=== PATIENT | female | born 1960 | race Caucasian/White ===

== ENCOUNTER → 2016-05-18 | Outpatient (CLI) | payer MEDICARE, OTHER ==
[~2016-05-18] MED LIST: ALB0.5V INH; ALBU0.8322 IH; ALBU17AE3 IH; ALBU2.5V4 IH; ALBU8.5H2 IH; AMOX-355 PO; ASPI-875 PO; AZIT-21 PO; BENZ100C18 PO; BUDE10.2 IH; BUDE10.22 IH; BUDE6HFA IH; CARV3.12T PO; DCS100C PO; DOXY100C42 PO; DOXY100T2 PO; ENAL2.5T PO; ENLP2.5T PO; FLUT16SP22 NS; FURO20TA4 PO; FURO40TA4 PO; Fluticasone Propionate NS; GFN600TCR PO; GUAI-555 PO; HYDR-3714 PO; HYDR-3720 PO; HYDR-756 PO; HYDR-757 PO; IPRA3AMP11 INH; Ibuprofen PO; KCL10CCR PO; LISI1TAB PO; LISI1TAB6 PO; LORA1TAB PO; LRT10T PO; Levofloxacin PO; METO25TA PO; MNTL10T PO; MONT10TA24 PO; MTP25TSR PO; NCT21TD TD; PNT40TEC PO; POTA10CA43 PO; POTA20TA15 PO; PRD10T PO; PRD1T PO; PRD20T PO; PRD50T PO; PRED10TA PO; RT-ALBUINH IH; SERT100T8 PO; SERT50TA PO; SLMFT1E INH; SRTR100T PO; TIOT18CA IH; TIOT18CA2 INH; TRAM50TA2 PO
--- OUTSIDE RECORDS SUMMARY | 2016-05-18 15:43 | XMS REPORT | Continuity of Care Document ---
Author Author [facility] Organization [facility] Address Unknown Phone Unavailable Care Team Providers Care Substation Maintenance Technician Name Role Phone LUDIN GALINDO MD PCP Insurance Providers Payer Name Policy Number Subscriber Name Relationship Eloisa Kanc[employer] [id number] Ellen Jacobs 18 Self / Same As Patient Advance Directives Directive Response Recorded Date/Time Advance Directives No 12/13/13 5:59am Health Care Power of Used Car Lot Attendant Y PAST MEDICAL RECORD 12/13/13 5:59am Organ Donor No 12/13/13 5:59am Resuscitation Status Full Code 12/13/13 5:59am Chief Complaint and Reason for Visit Chief Complaint ACUTE RESPIRATORY FAILURE/COPD FLARE Reason for Visit Acute respiratory failure with hypercapnia COPD with exacerbation Acute respiratory failure with hypercapnia Problems Medical Problems Problem Onset Date Status Severe chronic obstructive pulmonary disease 09/26/2013 Active COPD with exacerbation Unknown Active COPD with exacerbation Unknown Active Acute respiratory failure with hypercapnia Unknown Active COPD with exacerbation Unknown Active Acute respiratory failure with hypercapnia Unknown Active Medications Medication Dose Route Sig Days/Qty Instructions Order Date Discontinued Date Status Albuterol 2.5 Mg INH EVERY 4HRS PRN 03/09/12 09/27/12 Discontinued Prednisone 50 Mg PO DAILY 03/09/12 03/12/12 Discontinued Sertraline HCl 50 Mg PO DAILY 03/09/12 03/12/13 Discontinued Tiotropium [place] 0 IH DAILY 1 INHALATION 03/09/12 09/22/12 Discontinued Salmeterol Xinafoate/Fluticasone 0 INH GIVE EVERY 12 HRS ON SCHEDULE 03/09/12 03/12/12 Discontinued HCTZ/Lisinopril (Zestoretic) 10 - 12.5 Mg PO DAILY 03/09/12 Discontinued Tiotropium [place] 0 IH DAILY 1 INHALATION 03/12/12 09/22/12 Discontinued Amoxicillin/Clavulanate Potassium 1 Each PO TWICE A DAY 6 Days 09/22/12 Discontinued Prednisone PO TAKE 60 MG TWICE DAILY X2 DAYS 03/12/12 09/22/12 Discontinued Albuterol 8.5 Gm IH EVERY 4HRS 09/22/12 09/27/12 Discontinued Albuterol Sulfate 0.83 Mg IH EVERY 4HRS PRN NEEDED FOR SHORTNESS OF BREATH 09/22/12 03/12/13 Discontinued Guaifenesin 600 Mg PO TWICE A DAY 09/22/12 03/12/13 Discontinued Loratadine 10 Mg PO DAILY PRN 09/22/12 09/25/13 Discontinued Prednisone 1 Mg PO THREE TIMES A DAY 09/27/12 09/27/12 Discontinued Prednisone 40 Mg PO DAILY TAKES 2 (20MG) TABLETS DAILY FOR FIVE DAYS 03/19/13 Discontinued Lorazepam 0.5-1 Mg PO DAILY PRN 09/27/12 09/13/13 Discontinued Prednisone 40 Mg PO DAILY 5 Days 03/08/13 03/12/13 Discontinued Guaifenesin/P-Ephed Hcl 1 Tab PO TWICE A DAY PRN NEEDED FOR CONGESTION 03/12/13 03/19/13 Discontinued Budesonide/Formoterol Fumarate 2 Puff IH TWICE A DAY 03/12/13 Discontinued Albuterol 2 Puff IH TWICE A DAY PRN SHORTNESS OF BREATH 03/12/13 Active Aspirin 81 Mg PO DAILY 03/12/13 Active HCTZ/Lisinopril (Zestoretic) 1 Tab PO DAILY 20-12.5MG TABLET 03/12/13 09/13/13 Discontinued Albuterol Sulfate 2.5 Mg IH EVERY 4HRS PRN 03/12/13 03/19/13 Discontinued Budesonide/Formoterol Fumarate 2 Puff IH TWICE A DAY 03/12/13 Active Sertraline HCl 150 Mg PO DAILY TAKES 1 & 1/2 (100MG) TABLETS DAILY 11/28/13 Discontinued Benzonatate 200 Mg PO THREE TIMES A DAY PRN COUGH 30 Days 03/19/13 Discontinued Albuterol/Ipratropium 3 Ml INH RESPIRATORY EVERY FOUR HOURS 30 Days 10/2409/08/13 Discontinued Fluticasone Propionate 0 Gm NS TWICE A DAY 30 Days 03/19/13 09/07/13 Discontinued Guaifenesin 600 Mg PO TWICE A DAY 30 Days 03/19/13 09/08/13 Discontinued Pantoprazole Sodium 40 Mg PO DAILY@0700 30 Days 03/19/13 09/07/13 Discontinued Prednisone 60 Mg PO DAILY@0700 42 Qty Take 5 tabs (50mg) on 03-21-13, 02-2303/19/13 09/07/13 Discontinued Montelukast Sodium 10 Mg PO DAILY 30 Days 03/19/13 09/07/13 Discontinued Nicotine 21 Mg TD DAILY@0900 30 Days 03/19/13 09/07/13 Discontinued Lorazepam 0.5-1 Mg PO ONCE DAILY PRN ANXIETY 1 Qty 09/13/13 09/25/13 Discontinued Enalapril Maleate 2.5 Mg PO TWICE A DAY 60 Qty 09/13/13 09/25/13 Discontinued Furosemide (Lasix) 20 Mg PO DAILY 30 Qty 09/13/13 09/16/13 Discontinued Potassium Chloride (Micro K) 10 Meq PO DAILY WITH FOOD 1 Qty 09/13/13 09/16/13 Discontinued Carvedilol 3.125 Mg PO TWICE A DAY 60 Qty 09/13/13 09/25/13 Discontinued Potassium Chloride (Micro K) 20 Meq PO DAILY WITH FOOD 1 Qty 09/16/13 09/25/13 Discontinued Furosemide (Lasix) 1 Each PO DAILY 30 Qty 09/16/13 09/25/13 Discontinued Lorazepam 0.5 Mg PO TWICE A DAY PRN ANXIETY TAKES 1/2 (1MG) TABLET NEEDED FOR ANXIETY 09/25/13 Active Enalapril Maleate 2.5 Mg PO TWICE A DAY 09/25/13 Active Carvedilol 3.125 Mg PO TWICE A DAY 09/25/13 09/25/13 Discontinued Potassium Chloride 20 Meq PO DAILY 09/25/13 11/27/13 Discontinued Furosemide (Lasix) 40 Mg PO DAILY TAKES 2 (20MG) TABLETS DAILY 11/27/13 Discontinued Albuterol Sulfate 2.5 Mg IH EVERY 4HRS PRN SHORTNESS OF BREATH Active Metoprolol Succinate 12.5 Mg PO DAILY 30 Days 09/26/13 11/28/13 Discontinued Montelukast Sodium 10 Mg PO BEDTIME 30 Days 09/26/13 11/28/13 Discontinued [Fluticasone Propionate] 0 [place] NS TWICE A DAY 30 Days 09/26/1311/27 Discontinued Loratadine 10 Mg PO DAILY 30 Days 09/26/13 11/28/13 Discontinued Prednisone 0 PO DIRECTED 80 Qty 60mg daily for 2 days 09/26/13 Discontinued Azithromycin (Zpak) 1 Tab PO DAILY 4 Qty 11/12/13 11/27/13 Discontinued Prednisone 20 Mg PO DIRECTED 14 Qty 11/27/13 11/28/13 Discontinued Potassium Chloride 10 Meq PO DAILY 0 Qty 11/27/13 11/28/13 Discontinued Furosemide (Lasix) 20 Mg PO DAILY 0 Qty 11/27/13 11/28/13 Discontinued Tiotropium [place] 1 Cap IH 1400 11/27/13 Active Metoprolol Succinate 12.5 Mg PO 2100 11/28/13 Active Montelukast Sodium 10 Mg PO DAILY 11/28/13 Active Loratadine 10 Mg PO DAILY 11/28/13 Active Furosemide (Lasix) 20 Mg PO DAILY 11/28/13 Active Potassium Chloride 10 Meq PO DAILY TAKE 1/2 (20MEQ) TABLET 11/28/13 Active Sertraline Hcl 150 Mg PO DAILY 11/28/13 Active Prednisone 10 Mg PO DAILY 42 Qty 60mg daily for 2 days 11/29/13 Discontinued Prednisone 0 PO DIRECTED 10 Qty 12/15/13 Active Social History Social History Problem Response Recorded Date/Time Alcohol Use Denies Use 12/13/2013 5:34am Recreational Drug Use No 12/13/2013 5:34am Recent Foreign Travel No 12/13/2013 5:34am Recent Infectious Disease Exposure No 12/13/2013 5:34am Hospitalization with Isolation Denies 12/15/2013 2:06pm Smoking Status Former Smoker 12/13/2013 7:00am Do you dip or chew tobacco? No 12/13/2013 7:00am Query Response Start Date Stop Date Smoking Status Former Smoker 12/23/2012 Hospital Discharge Instructions Patient Instructions Physician Instructions New, Converted, or Re-newed RX: Call to Patient Pharmacy Goal/Follow Up Appt: Appt with Dr Galindo in 1 wk Dicharge Diet: ADA Diet Activity as Tolerated: Yes Plan of Care Discharge Date 12/15/13 11:30am Disposition 30 STILL A PATIENT Instructions/Education Provided Chronic Obstructive Pulmonary Disease (DC) Forms Provided Follow-Up Appts. PDI Medical Prescriptions See Medications Section Referrals (Pulmonary Diseases) Functional Status Query Response Date Recorded Patient Orientation Person Place Time Situation Eyes Open December 15, 2013 2:06pm Comprehension Ability Understands Concepts December 14, 2013 9:00pm Allergies, Adverse Reactions, Alerts Allergen Type Severity Reaction Status Last Updated No Known Drug Allergies Active 03/09/12 Immunizations Name Given Type Date of Pneumonia Vaccine 12/13/11 Historical Date of Influenza Vaccine 02/16/12 Historical Tetanus Booster (TDap) Less than 5yrs Historical Vital Signs Acute Vital Signs Vital Response Date/Time Temperature (Fahrenheit) 96.0 degrees F (97.6 - 99.5) Temperature (Calculated Celsius) 35.51362 degrees C (36.4 - 37.5) Temperature Source Tympanic Pulse Rate (adult) 76 bpm (60 - 90) Respiratory Rate 20 bpm (12 - 24) O2 Sat by Pulse Oximetry 98 % (88 - 100) Blood Pressure 131/79 mm Hg Pain Pain Intensity 0 Height (Feet) 5 feet Height (Inches) 5.00 inches Height (Calculated Centimeters) 165.900627 cm Weight (Pounds) 157 pounds Weight (Ounces) 3.0 oz Weight (Calculated Grams) 57447.003 gm Weight (Calculated Kilograms) 71.365369 kilograms Calculated BMI 25.79 Results Test Source Date Result Interp. Ref. Range Comments Activated Partial Thromboplast Time September 24, 2013 5:00pm 31 SEC N 24-35 Alanine Aminotransferase (ALT/SGPT) December 13, 2013 4:15am 35 U/L N 0- 55 Albumin December 13, 2013 4:15am 4.5 G/DL N 3.2-4.5 Alkaline Phosphatase December 13, 2013 4:15am 56 U/L N 40-136 Yoni Test December 13, 2013 5:04am YES-POS - Has specimen been collected/obtained? YPuncture site: L rad Yoni's Test: POSITIVE Temperature: 97.2 Liters of O2: 60% Comments: bipap Amylase Level September 07, 2013 4:44am 78 U/L N 25-115 Arterial Blood Base Excess December 13, 2013 5:04am -2.6 MMOL/L L -2.5- 2.5 Has specimen been collected/obtained? YPuncture site: Allie rad Yoni's Test: POSITIVE Temperature: 97.2 Liters of O2: 60% Comments: bipap Arterial Blood HCO3 December 13, 2013 5:04am 25 MMOL/L N 23-27 Has specimen been collected/obtained? YPuncture site: L rad Yoni's Test: POSITIVE Temperature: 97.2 Liters of O2: 60% Comments: bipap Arterial Blood Oxygen Saturation December 13, 2013 5:04am 99 % N 94-100 Has specimen been collected/obtained? YPuncture site: L fritz Yoni's Test: POSITIVE Temperature: 97.2 Liters of O2: 60% Comments: bipap Arterial Blood Partial Pressure CO2 December 13, 2013 5:04am 53 MMHG H 35- 45 Has specimen been collected/obtained? YPuncture site: L rad Yoni's Test: POSITIVE Temperature: 97.2 Liters of O2: 60% Comments: bipap Arterial Blood Partial Pressure O2 December 13, 2013 5:04am 154 MMHG H 79- 93 Has specimen been collected/obtained? YPuncture site: L rad Yoni's Test: POSITIVE Temperature: 97.2 Liters of O2: 60% Comments: bipap Arterial Blood Total CO2 December 13, 2013 5:04am 26.9 MMOL/L N 21.0-31.0 Has specimen been collected/obtained? YPuncture site: Allie hu Yoni's Test: POSITIVE Temperature: 97.2 Liters of O2: 60% Comments: bipap Arterial Blood pH December 13, 2013 5:04am 7.29 L 7.37-7.43 Has specimen been collected/obtained? YPuncture site: L rad Yoni's Test: POSITIVE Temperature: 97.2 Liters of O2: 60% Comments: bipap Aspartate Amino Transf (AST/SGOT) December 13, 2013 4:15am 31 U/L N 5-34 Atypical Lymphocytes December 13, 2013 4:15am 10 % - BUN/Creatinine Ratio December 13, 2013 4:15am 18 - Band Neutrophils December 13, 2013 4:15am 2 % - Basophils # (Auto) December 13, 2013 4:15am 0.3 10^3/uL H 0.0-0.1 Basophils % (Manual) September 22, 2012 8:30pm 0 % - Has specimen been collected/obtained? Y Basophils (%) (Auto) December 13, 2013 4:15am 1 % N 0-10 Blood Gas Inspired Oxygen December 13, 2013 5:04am 60% - Has specimen been collected/obtained? YPuncture site: L rad Yoni's Test: POSITIVE Temperature: 97.2 Liters of O2: 60% Comments: bipap Blood Gas Patient Temperature December 13, 2013 5:04am 97.2 - Has specimen been collected/obtained? YPuncture site: L rad Yoni's Test: POSITIVE Temperature: 97.2 Liters of O2: 60% Comments: bipap Blood Gas Puncture Site December 13, 2013 5:04am LT RAD - Has specimen been collected/obtained? YPuncture site: L rad Yoni's Test: POSITIVE Temperature: 97.2 Liters of O2: 60% Comments: bipap Blood Gas Ventilator Setting December 13, 2013 5:04am NO - Has specimen been collected/obtained? YPuncture site: L rad Yoni's Test: POSITIVE Temperature: 97.2 Liters of O2: 60% Comments: bipap Blood Urea Nitrogen December 13, 2013 4:15am 22 MG/DL H 7-18 C-Reactive Protein March 12, 2013 1:50am < 0.2 MG/DL L 0.2-0.9 Calcium Level December 13, 2013 4:15am 10.4 MG/DL H 8.5-10.1 Carbon Dioxide Level December 13, 2013 4:15am 19 MMOL/L L 21-32 Chloride Level December 13, 2013 4:15am 104 MMOL/L N 98-107 Cholesterol Level September 15, 2013 4:32am 181 MG/DL N -200 Has specimen been collected/obtained? Y Creatine Kinase MB December 13, 2013 4:15am 1.7 NG/ML - Creatinine December 13, 2013 4:15am 1.24 MG/DL N 0.60-1.30 D-Dimer September 14, 2013 10:02pm 0.57 UG/ML H 0.00-0.49 Eosinophils # (Auto) December 13, 2013 4:15am 1.5 10^3/uL H 0.0-0.3 Eosinophils % (Manual) December 13, 2013 4:15am 5 % - Eosinophils (%) (Auto) December 13, 2013 4:15am 6 % N 0-10 Glucose Level December 13, 2013 4:15am 200 MG/DL H 70-105 HDL Cholesterol September 15, 2013 4:32am 38 MG/DL N 35-60 Has specimen been collected/obtained? Y Hematocrit December 13, 2013 4:15am 50 % N 35-52 Hemoglobin December 13, 2013 4:15am 16.8 G/DL H 11.5-16.0 LDL Cholesterol September 15, 2013 4:32am 107 MG/DL N 0-129 Has specimen been collected/obtained? Y Lipase September 07, 2013 4:44am 359 U/L N 73-393 Lymphocytes # (Auto) December 13, 2013 4:15am 11.7 X 10^3 H 1.0-4.0 Lymphocytes % (Manual) December 13, 2013 4:15am 47 % - Lymphocytes (%) (Auto) December 13, 2013 4:15am 48 % H 12-44 Magnesium Level September 24, 2013 5:00pm 2.0 MG/DL N 1.8-2.4 Mean Corpuscular Hemoglobin December 13, 2013 4:15am 32 PG N 25-34 Mean Corpuscular Hemoglobin Concent December 13, 2013 4:15am 34 G/DL N 32- 36 Mean Corpuscular Volume December 13, 2013 4:15am 94 FL N 80-99 Mean Platelet Volume December 13, 2013 4:15am 9.6 FL N 7.4-10.4 Monocytes # (Auto) December 13, 2013 4:15am 3.4 X 10^3 H 0.0-1.0 Monocytes % (Manual) December 13, 2013 4:15am 9 % - Monocytes (%) (Auto) December 13, 2013 4:15am 14 % H 0-12 Myoglobin September 14, 2013 10:02pm 41 UG/L N 10-92 Has specimen been collected/obtained? Y Neutrophils # (Auto) December 13, 2013 4:15am 7.7 X 10^3 N 1.8-7.8 Neutrophils % (Manual) December 13, 2013 4:15am 27 % - Neutrophils (%) (Auto) December 13, 2013 4:15am 32 % L 42-75 Phosphorus Level March 14, 2013 5:53am 3.3 MG/DL N 2.5-4.9 Platelet Count December 13, 2013 4:15am 234 10^3/uL N 130-400 Potassium Level December 13, 2013 4:15am 4.9 MMOL/L N 3.6-5.0 Prothrombin Time September 24, 2013 5:00pm 12.4 SEC N 12.2-14.7 Red Blood Count December 13, 2013 4:15am 5.29 10^6/uL N 4.35-5.85 Red Cell Distribution Width December 13, 2013 4:15am 15.6 % H 10.0-14.5 Sodium Level December 13, 2013 4:15am 143 MMOL/L N 135-145 Total Bilirubin December 13, 2013 4:15am 0.5 MG/DL N 0.1-1.0 Total Creatine Kinase December 13, 2013 4:15am 46 U/L N 29-168 Total Protein December 13, 2013 4:15am 7.5 G/DL N 6.4-8.2 Triglycerides Level September 15, 2013 4:32am 180 MG/DL H 30.0-150.0 Has specimen been collected/obtained? Y Troponin I December 13, 2013 4:15am < 0.30 NG/ML - Urine Amorphous Sediment September 07, 2013 3:58pm MOD NEERAJ URATES /LPF H - Has specimen been collected/obtained? YSpecimen Description INDWELLING CATH Urine Bacteria September 07, 2013 3:58pm FEW /HPF H - Has specimen been collected/obtained? YSpecimen Description INDWELLING CATH Urine Bilirubin September 07, 2013 3:58pm NEGATIVE - Has specimen been collected/obtained? YSpecimen Description INDWELLING CATH Urine Casts September 07, 2013 3:58pm NONE /LPF - Has specimen been collected/obtained? YSpecimen Description INDWELLING CATH Urine Clarity September 07, 2013 3:58pm CLEAR - Has specimen been collected/obtained? YSpecimen Description INDWELLING CATH Urine Color September 07, 2013 3:58pm YELLOW - Has specimen been collected/obtained? YSpecimen Description INDWELLING CATH Urine Crystals September 07, 2013 3:58pm PRESENT /LPF H - Has specimen been collected/obtained? YSpecimen Description INDWELLING CATH Urine Culture Indicated September 07, 2013 3:58pm YES - Has specimen been collected/obtained? YSpecimen Description INDWELLING CATH Urine Glucose (UA) September 07, 2013 3:58pm 2+ H - Has specimen been collected/obtained? YSpecimen Description INDWELLING CATH Urine Ketones September 07, 2013 3:58pm 1+ H - Has specimen been collected/ obtained? YSpecimen Description INDWELLING CATH Urine Leukocyte Esterase September 07, 2013 3:58pm NEGATIVE - Has specimen been collected/obtained? YSpecimen Description INDWELLING CATH Urine Mucus September 07, 2013 3:58pm SMALL /LPF H - Has specimen been collected/obtained? YSpecimen Description INDWELLING CATH Urine Nitrite September 07, 2013 3:58pm NEGATIVE - Has specimen been collected/obtained? YSpecimen Description INDWELLING CATH Urine Protein September 07, 2013 3:58pm 2+ H - Has specimen been collected/ obtained? YSpecimen Description INDWELLING CATH Urine RBC September 07, 2013 3:58pm NONE /HPF - Has specimen been collected/obtained? YSpecimen Description INDWELLING CATH Urine Specific [place] September 07, 2013 3:58pm 1.020 - Has specimen been collected/obtained? YSpecimen Description INDWELLING CATH Urine Squamous Epithelial Cells September 07, 2013 3:58pm RARE /HPF - Has specimen been collected/obtained? YSpecimen Description INDWELLING CATH Urine Urobilinogen September 07, 2013 3:58pm NORMAL MG/DL - Has specimen been collected/obtained? YSpecimen Description INDWELLING CATH Urine WBC September 07, 2013 3:58pm RARE /HPF - Has specimen been collected/obtained? YSpecimen Description INDWELLING CATH Urine pH September 07, 2013 3:58pm 5 - Has specimen been collected/ obtained? YSpecimen Description INDWELLING CATH VLDL Cholesterol September 15, 2013 4:32am 36 MG/DL N 5-40 Has specimen been collected/obtained? Y White Blood Count December 13, 2013 4:15am 24.6 10^3/uL H 4.3-11.0 Pro-B-Type Natriuretic Peptide December 13, 2013 4:15am 34.5 PG/ML N - 125.0 Glucometer September 10, 2013 5:06am 94 MG/DL N 70-110 Estimat Glomerular Filtration Rate December 13, 2013 4:15am 45 - GFR INTERPRETIVE DATA UNITS FOR ESTIMATED GFR (eGFR): mL/min/1.73 M2 REFERENCE RANGE FOR ESTIMATED GFR (eGFR) eGFR NORMAL eGFR >60 MODERATELY DECREASED eGFR 30-59 SEVERLY DECREASED eGFR 15-29 KIDNEY FAILURE <15 (OR DIALYSIS) Blood Morphology Comment December 13, 2013 4:15am NORMAL - Urine RBC (Auto) September 07, 2013 3:58pm NEGATIVE - Has specimen been collected/obtained? YSpecimen Description INDWELLING CATH INR Comment September 24, 2013 5:00pm 0.9 N 0.8-1.4 INTERPRETIVE DATASUGGESTED THERAPEUTIC RANGE FOR INR'S: VENOUS THROMBOSIS, PULMONARY EMBOLISM, OR PREVENTION OF SYSTEMIC EMBOLISM (EG. IN ATRIAL FIBRILLATION): 2.0 - 3.0 MECHANICAL PROSTHETIC HEART VALVES: 2.5 - 3.5* *NOTE: INR'S UP TO 4.5 MAY BE NECESSARY IN SELECTED GROUPS OF HIGH RISK PATIENTS. [employer] CONSENSUS CONFERENCE ON ANTITHROMBOTIC THERAPY (2000). Blood Culture Peripheral-Rt Hand September 07, 2013 8:17am No growth MRSA Screen Nasal September 07, 2013 10:43am Urine Culture Urine-Clean Catch September 07, 2013 3:58pm NO GROWTH Procedures Procedure Status Date Provider(s) Tracing only of electrocardiogram completed 11/28/13 DAVID VIDES MD Tracing only of electrocardiogram completed 12/13/13 BRENTON MARTINEZ MD Encounters Encounter Location Date/Time Admitted Inpatient Via [facility] 12/13/13 4:48am Discharged Inpatient [facility] 11/27/13 7:05pm Recent Diagnosis Acute respiratory failure with hypercapnia COPD with exacerbation Acute respiratory failure with hypercapnia
--- NOTE | 2016-05-18 16:31 | Diagnostic Imaging Report ---
PROCEDURE: MRI left joint lower extremity without contrast. TECHNIQUE: Multiplanar, multisequence MR imaging of the left knee was performed without contrast. COMPARISON: None available. INDICATION: Chronic lateral knee pain. FINDINGS: MENISCI Medial meniscus: Normal. Lateral meniscus: There is a horizontal cleavage tear with associated undersurface tearing of the body of the lateral meniscus. Along the lateral margin of the body, there is a 1.2 x 0.6 cm parameniscal cyst which has some internal septations. This cyst has a narrow neck which communicates with a larger complex cystic lesion that extends more superiorly along the posterolateral aspect of the lateral femoral condyle. Overall, this collection measures 2.0 x 3.0 cm and partially encases the fibular collateral ligament proper. LIGAMENTS ACL: Intact. PCL: Intact. MCL: Intact. LCL: The lateral collateral ligamentous complex is intact. EXTENSOR MECHANISM The extensor mechanism is intact. CARTILAGE Medial compartment: Medial compartment articular cartilage is well preserved without focal high-grade chondromalacia. Lateral compartment: The lateral compartment articular cartilage is preserved without high-grade chondromalacia. Patellofemoral compartment: The patellofemoral articular cartilage is well preserved without high-grade chondromalacia. BONE No fracture or stress fracture. There is a small focus of bone infarct along the posterior weightbearing portion of the lateral femoral condyle. This measures approximately 1.3 x 0.4 x 1.0 cm (CC x AP x transverse). There is no associated fracture or irregularity of the subchondral bone plate. SOFT TISSUE: No knee effusion or Herr's cyst. IMPRESSION: 1. Horizontal cleavage tear involving the undersurface of the body of the lateral meniscus. There is an associated large complicated parameniscal cyst extending along the fibular collateral ligament. The parameniscal cyst measures 2.0 x 3.0 cm. 2. Small focus of bone infarct in the posterior aspect of the lateral femoral condyle. No articular surface collapse. 3. No high-grade chondromalacia within the knee. Dictated by: Dictated on workstation # [id number]
== END ==
LOC: RAD 15:39
PROVIDERS: ATTEND Orthopaedic Surgery
DX: M25.562 Pain in left knee (principal)
CPT/HCPCS: 73721

== ENCOUNTER 2016-08-22 10:13 | Outpatient (CLI) | payer MEDICAID, MEDICARE ==
[~2016-08-22] VITALS: Ht 165.1 cm; Wt 68.6 kg
[~2016-08-22 10:13] MED LIST changes: -DOXY100T2 PO; -HYDR-756 PO; -TRAM50TA2 PO
[2016-08-22] MEDS ORDERED: TRAM50TA2 PO (10:30)
[2016-08-22] MEDS ORDERED: POTA10CA43 PO (10:30)
[2016-08-22] MEDS ORDERED: FURO20TA4 PO (10:30)
[2016-08-22 10:48] VITALS: BP 117/74
[2016-08-22 11:31] LABS: BASOPHILS % (AUTO) 1 % (0-10); EOSINOPHILS # (AUTO) 0.4 10^3/uL (0.0-0.3); EOSINOPHILS % (AUTO) 6 % (0-10); LYMPHOCYTES # (AUTO) 1.5 X 10^3 (1.0-4.0); LYMPHOCYTES % (AUTO) 24 % (12-44); MEAN CORPUSCULAR HEMOGLOBIN 33 PG (25-34); MEAN CORPUSCULAR HGB CONC 35 G/DL (32-36); MEAN CORPUSCULAR VOLUME 95 FL (80-99); MEAN PLATELET VOLUME 9.8 FL (7.4-10.4); MONOCYTES # (AUTO) 0.5 X 10^3 (0.0-1.0); MONOCYTES % (AUTO) 8 % (0-12); NEUTROPHILS % (AUTO) 63 % (42-75); PLATELET COUNT 131 10^3/uL (130-400); RED BLOOD COUNT 4.58 10^6/uL (4.35-5.85); RED CELL DISTRIBUTION WIDTH 14.4 % (10.0-14.5); WHITE BLOOD COUNT 6.4 10^3/uL (4.3-11.0)
[2016-08-22 11:59] LABS: ANION GAP 11 MMOL/L (5-14); BLOOD UREA NITROGEN 15 MG/DL (7-18); BUN/CREATININE RATIO 17; CARBON DIOXIDE 21 MMOL/L (21-32); CHLORIDE 108 MMOL/L (98-107); CREATININE SERUM 0.86 MG/DL (0.60-1.30); GFR ESTIMATED > 60; GLUCOSE 143 MG/DL (70-105); POTASSIUM 3.6 MMOL/L (3.6-5.0); SODIUM 140 MMOL/L (135-145)
== END 2016-08-22 12:09 | disposition home or self-care (01) ==
LOC: PREOP 10:13
PROVIDERS: ATTEND Orthopaedic Surgery
DX: Z01.812 Encounter for preprocedural laboratory examination (principal); Z11.2 Encounter for screening for other bacterial diseases; M23.8X2 Other internal derangements of left knee; M25.862 Other specified joint disorders, left knee
CPT/HCPCS: 36415; 80048; 85025; 87081; 93005

== ENCOUNTER 2016-08-29 06:17 | Day surgery (SDC) | payer MEDICARE, MEDICAID ==
[~2016-08-29] VITALS: Ht 165.1 cm; Wt 68.6 kg
[~2016-08-29 06:17] MED LIST changes: +TRAM50TA2 PO
[2016-08-29] MEDS ORDERED: ceFAZolin 2 GM/50 ML NS 50 ML IV ONE (06:34)
[2016-08-29 06:35] VITALS: BP 138/93
[2016-08-29] MEDS ORDERED: ceFAZolin 2 GM/NS 50 ML IV ONE (06:45)
[2016-08-29] MEDS ORDERED: CATHETER FLUSH 10 ML SYR IV PRN (06:45)
[2016-08-29] MEDS ORDERED: MIDAZOLAM 2 MG/2 ML (VERSED) VIAL ONE (06:46)
[2016-08-29] MEDS ORDERED: fentaNYL INJECTION 100 MCG/2 ML AMP ONE (06:46)
[2016-08-29] MEDS ORDERED: DEXAMETHASONE PF 10 MG/ML (DECADRON) VIAL ONE (06:46)
[2016-08-29] MEDS ORDERED: proPOfol 200 MG/20 ML (DIPRIVAN) VIAL IV ONE (06:46)
[2016-08-29] MEDS ORDERED: ONDANSETRON 4 MG/2 ML (SDV) Z0FRAN ONE (06:46)
[2016-08-29] MEDS ORDERED: LACTATED RINGERS 1,000 ML IV PRN (06:47)
[2016-08-29] MEDS ORDERED: DOXY100T2 PO (06:51)
[2016-08-29] MEDS ORDERED: LACTATED RINGERS 1,000 ML IV ONE ×2 (06:51→08:34)
[2016-08-29] MEDS ORDERED: LIDOCAINE 1% INJ 20 ML (XYLOCAINE) VIAL ONE (07:20)
[2016-08-29] MEDS ORDERED: NEO/POLY/BAC (NEOSPORIN) OINT 15 GM TUBE ONE (07:20)
[2016-08-29] MEDS ORDERED: BUP/EPI 0.5% 1:200,000 (SENSORCAINE) 30 ML VIAL ONE (07:20)
[2016-08-29] MEDS ORDERED: HYDR-756 PO (07:28)
--- NOTE | 2016-08-29 07:31 | Discharge Inst-Simple/Standard ---
Discharge Inst-Standard Discharge Medications New, Converted or Re-Newed RX: RX on Chart Patient Instructions/Follow Up Plan of Care/Instructions/FU: f/u in 8 days [place] office, [phone] for appt. refer to Dr. Nayak knee arthroscopy instructions for more details Activity as Tolerated: No Discharge Diet: No Restrictions Return to The Hospital For: call office for any concerns NANO HILARIO APRN Aug 29, 2016 7:31 am
[2016-08-29] MEDS ORDERED: SEVOFLURANE (ULTANE) 15 ML INHAL SOLN ONE (08:17)
[2016-08-29] MEDS ORDERED: KETOROLAC 30 MG/ML VIAL ONE (08:17)
[2016-08-29] MEDS ORDERED: ONDANSETRON 4 MG/2 ML (SDV) Z0FRAN IVP PRN (09:00)
[2016-08-29] MEDS ORDERED: morphine INJ 10 MG/ML 1ML (SYR OR VIAL) IVP PRN (09:00)
[2016-08-29 09:50] VITALS: BP 122/82
[2016-08-29 10:20] VITALS: BP 136/84
[2016-08-29 10:50] VITALS: BP 126/81
[2016-08-29 11:50] VITALS: BP 126/81
--- NOTE | 2016-08-30 15:03 | OPERATIVE REPORT ---
PROCEDURE PHYSICIAN: SILVIANO BRICENO DATE OF PROCEDURE: 08/29/2016 DICTATING PHYSICIAN: Silviano Briceno DO PREOPERATIVE DIAGNOSIS: 1. Torn lateral meniscus, left knee. 2. Parameniscal cyst lateral left knee. 3. Chondromalacia left knee. 4. Prepatellar cyst left knee. POSTOPERATIVE DIAGNOSIS: 1. Torn lateral meniscus, left knee. 2. Grade III chondromalacia, left knee. 3. Ganglion cyst lateral left knee. 4. Prepatellar cyst left knee. PROCEDURE: 1. Arthroscopy of the left knee with partial lateral meniscectomy and chondroplasty. 2. Aspiration ganglion cyst left knee. 3. Excision prepatellar cyst left knee. SURGEON: Dr. Briceno BROWNING PROCESSOR: TIERNEY Rowell. ANESTHESIA: General. INDICATIONS: The patient is a 55-year-old female seen with chief complaint of a cystic mass over the lateral joint line of the left knee. She had intermittent aching discomfort on the lateral joint line as well. She also had a cystic area in the prepatellar area of her left knee that caused pain when she kneeled down. An MRI evaluation of the left knee revealed a tear of the lateral meniscus with a complex cystic mass over the lateral joint line. The patient was taken to surgery where an arthroscopy of the left knee was performed. The patient demonstrated no evidence of injury to the medial meniscus of the anterior cruciate ligament. The lateral meniscus demonstrated a tear at the inner aspect of the middle horn of the lateral meniscus. The lateral femoral condyle was smooth. The lateral tibial plateau demonstrated a grade III chondromalacia. The medial femoral condyle demonstrated evidence of grade III chondromalacia and the medial tibial plateau was smooth. No degenerative changes of the patellofemoral joint were noted. There was no peripheral tear of her lateral meniscus at its meniscal capsular junction. The lateral meniscus was aspirated and gelatinous material was removed. A small 5 mm cystic mass from the prepatellar bursa over the anterolateral aspect of the knee was excised as well. PROCEDURE IN DETAIL: The patient was taken the operating room, placed supine upon the operating table and general inhalation anesthetic was administered. A well-padded pneumatic tourniquet was placed about the upper aspect of the left thigh; this was not used throughout the procedure. The left leg was placed in a leg de jesus. A ChloraPrep and sterile drape of the left lower extremity was performed. An inflow cannula was placed through a superior medial position. The arthroscope was placed through an anterolateral portal and an 18-gauge needle was used to establish position for an anterior medial arthroscopic portal site. The medial meniscus probed and found to be intact. Grade 3 degenerative changes of the articular surface of the medial femoral condyle were identified. No degenerative changes of the medial tibial plateau were noted. The lateral meniscus was probed. There was a tear of the inner rim of the body of the lateral meniscus. A basket forceps was inserted and the tear was morselized back to a stable rim and further debrided with a full radius synovial shaver at the lateral meniscus. Fibrillation tissue from the lateral tibial plateau was removed and debrided back to stable articular cartilage with a 4 inch synovial shaver. The 4 inch synovial shaver was used to debride the medial femoral condyle, removing fibrillation tissue loose chondral flaps back to stable articular cartilage. The anterior cruciate ligament was probed and tested with Dimas testing was found to be intact. At completion of the knee arthroscopy, the knee was additionally irrigated with normal saline and drained. An 18-gauge spinal needle was then inserted into the area of cystic mass formation over the lateral joint line of the left knee. This cystic mass was perforated multiple times in multiple locations with the 18-gauge needle and a gelatinous material with approximately 5 mL was aspirated from the cystic mass. The mass was no was no longer palpable after the aspiration and the perforation. A 7 mm longitudinal incision was then made over the anterior surface of the left knee. The incision was deepened. A cystic mass in the prepatellar bursa was then delineated and sharply excised. That incision was closed simply with interrupted 4-0 nylon suture. The knee was insufflated with 20 mL of 1% lidocaine without epinephrine. An Adaptic Neosporin bulky dressing was placed about the left knee. The patient was awakened and was transported to postop recovery with anesthesia personnel present in satisfactory condition. An intraoperative video recording as well as intraoperative photographs of the procedure were obtained for the record and provided to the patient. Job ID: [id number] Dictated Date: 08/29/2016 09:08:32 Patient Transport Orderly Date: 08/30/2016 14:50:09 / [place]
== END 2016-08-29 11:50 | disposition home or self-care (01) ==
LOC: SDC 06:17
PROVIDERS: ATTEND Orthopaedic Surgery
DX: M23.262 Derangement of other lateral meniscus due to old tear or injury, left knee (principal); M94.262 Chondromalacia, left knee; M67.462 Ganglion, left knee; M71.38 Other bursal cyst, other site
CPT/HCPCS: 88304

== ENCOUNTER 2018-07-08 07:02 | Emergency (ER) | payer MEDICARE ==
[~2018-07-08] VITALS: Ht 170.2 cm; Wt 70.3 kg
[~2018-07-08 07:02] MED LIST changes: +DOXY100T2 PO; +HYDR-4226 PO; +HYDR-4227 PO; -HYDR-757 PO
--- OUTSIDE RECORDS SUMMARY | 2018-07-08 07:11 | XMS REPORT | Continuity of Care Document ---
Author Author [facility] Organization [facility] Address Unknown Phone Unavailable Allergies Active Description Code Type Severity Reaction Onset Reported/Identified Relationship to Patient Clinical Status Yes No Known Drug Allergies [id number] Drug Allergy Unknown N/A 08/22/2016 Medications There is no data. 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,SUBENDO INFARCT,SUBSE 09/26/2013 LUDIN GALINDO MD Ot 414.01 CORONARY ATHEROSCLEROSIS OF [place] CORON 09/26/2013 LUDIN GALINDO MD Ot 425.4 PRIM CARDIOMYOPATHY NEC 09/26/2013 LUDIN GALINDO MD Ot 428.0 CONGESTIVE HEART FAILURE NOS 09/26/2013 LUDIN GALINDO MD Ot 428.22 CHRONIC SYSTOLIC HRT FAILURE 09/26/2013 LUDIN GALINDO MD Ot 454.9 ASYMPTOMATIC VARICOSE VEINS 09/26/2013 LUDIN GALINDO MD Ot 458.9 HYPOTENSION NOS 09/26/2013 LUDIN GALINDO MD Ot 491.21 OBSTR CHRONIC BRONCHITIS, W (ACUTE) EXAC 09/26/2013 LUDIN GALINDO MD Ot 493.02 EXTRINSIC ASTHMA, W (ACUTE) EXACERBATION 09/26/2013 LUDIN GALINDO MD Ot 518.83 CHRONIC RESPIRATORY FAILURE 09/26/2013 LUDIN GALINDO MD Ot 530.81 ESOPHAGEAL REFLUX 09/26/2013 LUDIN GALINDO MD Ot 716.90 ARTHROPATHY NOS-UNSPEC 09/26/2013 LUDIN GALINDO MD Ot 793.11 SOLITARY PULMONARY NODULE 09/26/2013 LUDIN GALINDO MD Ot V15.81 HX OF PAST NONCOMPLIANCE 09/26/2013 LUDIN GALINDO MD Ot V46.2 SUPPLEMENTAL OXYGEN 11/12/2013 ELIZ PERLAES COURTROOM REPORTER Ot 493.22 CHRONIC OBSTRUCTIVE ASTHMA, W (ACUTE) EX 11/29/2013 WILLIE WITT MD Ot 070.54 CHRONIC HEPATITIS C W/O HEPATIC COMA 11/29/2013 WILLIE WITT MD Ot 401.9 HYPERTENSION NOS 11/29/2013 WILLIE WITT MD Ot 414.01 CORONARY ATHEROSCLEROSIS OF [place] CORON 11/29/2013 WILLIE WITT MD Ot 428.0 CONGESTIVE HEART FAILURE NOS 11/29/2013 WILLIE WITT MD Ot 491.21 OBSTR CHRONIC BRONCHITIS, W (ACUTE) EXAC 11/29/2013 WILLIE WITT MD Ot 530.81 ESOPHAGEAL REFLUX 11/29/2013 WILLIE WITT MD Ot V15.82 HISTORY OF TOBACCO USE 12/15/2013 LUDIN GALINDO MD Ot 070.70 UNSPECIFIED VIRAL HEPATITIS C WITHOUT HE 12/15/2013 LUDIN GALINDO MD Ot 272.4 HYPERLIPIDEMIA NEC/NOS 12/15/2013 LUDIN GALINDO MD Ot 300.00 ANXIETY STATE NOS 12/15/2013 LUDIN GALINDO MD Ot 401.9 HYPERTENSION NOS 12/15/2013 LUDIN GALINDO MD Ot 414.01 CORONARY ATHEROSCLEROSIS OF [place] CORON 12/15/2013 LUDIN GALINDO MD Ot 428.0 CONGESTIVE HEART FAILURE NOS 12/15/2013 LUDIN GALINDO MD Ot 491.21 OBSTR CHRONIC BRONCHITIS, W (ACUTE) EXAC 12/15/2013 LDUIN GALINDO MD Ot 518.81 ACUTE RESPIRATORY FAILURE 12/15/2013 LUDIN GALINDO MD Ot 530.81 ESOPHAGEAL REFLUX 12/15/2013 LUDIN GALINDO MD Ot V15.82 HISTORY OF TOBACCO USE 12/24/2013 MARCE NOLAN DO Ot 041.7 PSEUDOMONAS INFECT NOS 12/24/2013 MARCE NOLAN DO Ot 041.85 BACTERIAL INFEC DUE TO OTH GRAM-NEG ORGA 12/24/2013 MARCE NOLAN DO Ot 070.54 CHRONIC HEPATITIS C W/O HEPATIC COMA 12/24/2013 MARCE NOLAN DO Ot 272.4 HYPERLIPIDEMIA NEC/NOS 12/24/2013 MARCE NOLAN DO Ot 276.2 ACIDOSIS 12/24/2013 MARCE NOLAN DO Ot 296.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 12/24/2013 MARCE NOLAN DO Ot 300.00 ANXIETY STATE NOS 12/24/2013 MARCE NOLAN DO Ot 305.1 TOBACCO USE DISORDER 12/24/2013 OVIDIO CHACON MARCE Mckinley Ot 401.9 HYPERTENSION NOS 12/24/2013 MARCE NOLAN DO Ot 491.21 OBSTR CHRONIC BRONCHITIS, W (ACUTE) EXAC 12/24/2013 OVIDIO CHACON MARCE Mckinley Ot 518.81 ACUTE RESPIRATORY FAILURE 02/04/2014 NIKOLAI ANDRES MD Ot 401.9 HYPERTENSION NOS 02/04/2014 DMITRY RODRIGUEZ, NIKOLAI Romero Ot 414.01 CORONARY ATHEROSCLEROSIS OF [place] CORON 02/04/2014 NIKOLAI ANDRES MD Ot 428.0 CONGESTIVE HEART FAILURE NOS 02/04/2014 NIKOLAI ANDRES MD Ot 496 CHR AIRWAY OBSTRUCT NEC 02/04/2014 NIKOLAI ANDRES MD Ot 530.81 ESOPHAGEAL REFLUX 02/04/2014 NIKOLAI ANDRES MD Ot 618.00 UNSPECIFIED PROLAPSE OF VAGINAL RICHARDS 02/04/2014 NIKOLAI ANDRES MD Ot V15.82 HISTORY OF TOBACCO USE 04/02/2014 HOPE FITZPATRICK DO Ot 496 04/02/2014 HOPE FITZPATRICK DO Ot 786.05 06/18/2014 LUDIN GALINDO MD Ot 070.70 UNSPECIFIED VIRAL HEPATITIS C WITHOUT HE 06/18/2014 LUDIN GALINDO MD Ot 272.4 HYPERLIPIDEMIA NEC/NOS 06/18/2014 LUDIN GALINDO MD Ot 296.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 06/18/2014 LUDIN GALINDO MD Ot 300.00 ANXIETY STATE NOS 06/18/2014 LUDIN GALINDO MD Ot 305.1 TOBACCO USE DISORDER 06/18/2014 LUDIN GALINDO MD Ot 491.21 OBSTR CHRONIC BRONCHITIS, W (ACUTE) EXAC 06/18/2014 JOSIE RODRIGUEZ, LUDIN Steele Ot 493.90 ASTHMA, UNSPECIFIED 06/18/2014 JOSIE RODRIGUEZ, LUDIN Steele Ot 518.84 ACUTE AND CHRONIC RESPIRATORY FAILURE 03/17/2015 MARCE NOLAN DO Ot B19.20 UNSPECIFIED VIRAL HEPATITIS C WITHOUT HE 03/17/2015 MARCE NOLAN DO Ot E78.5 HYPERLIPIDEMIA, UNSPECIFIED 03/17/2015 MARCE NOLAN DO Ot F17.210 NICOTINE DEPENDENCE, CIGARETTES, UNCOMPL 03/17/2015 MARCE NOLAN DO Ot F32.9 MAJOR DEPRESSIVE DISORDER, SINGLE EPISOD 03/17/2015 MARCE NOLAN DO Ot F41.9 ANXIETY DISORDER, UNSPECIFIED 03/17/2015 MARCE NOLAN DO Ot I10 ESSENTIAL (PRIMARY) HYPERTENSION 03/17/2015 MARCE NOLAN DO Ot I25.2 OLD MYOCARDIAL INFARCTION 03/17/2015 MARCE NOLAN DO Ot I42.9 CARDIOMYOPATHY, UNSPECIFIED 03/17/2015 MARCE NOLAN DO Ot I50.9 HEART FAILURE, UNSPECIFIED 03/17/2015 MARCE NOLAN DO Ot J44.1 CHRONIC OBSTRUCTIVE PULMONARY DISEASE W 03/17/2015 MARCE NOLAN DO Ot J96.21 ACUTE AND CHRONIC RESPIRATORY FAILURE [place] 03/17/2015 MARCE NOLAN DO Ot J96.22 ACUTE AND CHRONIC RESPIRATORY FAILURE [place] 03/17/2015 MARCE NOLAN DO Ot N31.9 NEUROMUSCULAR DYSFUNCTION OF BLADDER, UN 03/17/2015 MARCE NOLAN DO Ot Z91.14 PATIENT'S OTHER NONCOMPLIANCE WITH MEDIC 03/17/2015 MARCE NOLAN DO Ot Z91.19 PATIENT'S NONCOMPLIANCE W [facility] MED[facility] TR 05/17/2016 HOPE FITZPATRICK DO Ot 496 CHR AIRWAY OBSTRUCT NEC 05/17/2016 HOPE FITZPATRICK DO Ot 786.05 SHORTNESS OF BREATH 05/17/2016 DMITRY RODRIGUEZ, NIKOLAI Romero Ot 618.00 UNSPECIFIED PROLAPSE OF VAGINAL RICHARDS 05/17/2016 DMITRY RODRIGUEZ, NIKOLAI Romero Ot 625.6 FEM STRESS INCONTINENCE 05/17/2016 DMITRY RODRIGUEZ, NIKOLAI Romero Ot V72.84 EXAM PRE-OPERATIVE NOS 05/17/2016 NIKOLAI ANDRES MD Ot V74.8 SCREEN-BACTERIAL DIS NEC 05/17/2016 NIKOLAI ANDRES MD Ot 496 CHR AIRWAY OBSTRUCT NEC 05/17/2016 NIKOLAI ANDRES MD Ot 618.00 UNSPECIFIED PROLAPSE OF VAGINAL RICHARDS 05/17/2016 NIKOLAI ANDRES MD Ot 625.6 FEM STRESS INCONTINENCE 05/17/2016 NIKOLAI ANDRES MD Ot V72.63 PRE-PROCEDURAL LABORATORY EXAMINATION 05/17/2016 NIKOLAI ANDRES MD, Ot V74.8 SCREEN-BACTERIAL DIS NEC 05/22/2016 SILVIANO BRICENO DO Ot M25.562 PAIN IN LEFT KNEE 06/13/2016 SILVIANO BRICENO DO Ot M25.562 PAIN IN LEFT KNEE 06/19/2016 JUS RODRIGUEZ, MISHA J Ot 401.9 HYPERTENSION NOS 06/19/2016 JUS RODRIGUEZ, MISHA J Ot 414.00 CORON ATHEROSCLER NOS TYPE VESSEL, NATIV 06/19/2016 JUS RODRIGUEZ, MISHA J Ot 428.0 CONGESTIVE HEART FAILURE NOS 06/19/2016 JUS RODRIGUEZ, MISHA J Ot 496 CHR AIRWAY OBSTRUCT NEC 06/19/2016 SILVIANO BRICENO DO Ot M25.562 PAIN IN LEFT KNEE 07/17/2016 SILVIANO BRICENO DO Ot M25.562 PAIN IN LEFT KNEE 08/22/2016 SILVIANO BRICENO DO Ot M23.8X2 OTHER INTERNAL DERANGEMENTS OF LEFT KNEE 08/22/2016 SILVIANO BRICENO DO Ot M25.862 OTHER SPECIFIED JOINT DISORDERS, LEFT KN 08/22/2016 SILVIANO BRICENO DO Ot Z01.812 ENCOUNTER FOR PREPROCEDURAL LABORATORY E 08/22/2016 SILVIANO BRICENO DO Ot Z11.2 ENCOUNTER FOR SCREENING FOR OTHER BACTER 08/23/2016 SILVIANO BRICENO DO Ot M23.8X2 OTHER INTERNAL DERANGEMENTS OF LEFT KNEE 08/23/2016 SILVIANO BRICENO DO Ot M25.862 OTHER SPECIFIED JOINT DISORDERS, LEFT KN 08/23/2016 SILVIANO BRICENO DO Ot Z01.812 ENCOUNTER FOR PREPROCEDURAL LABORATORY E 08/23/2016 SILVIANO BRICENO DO Ot Z11.2 ENCOUNTER FOR SCREENING FOR OTHER BACTER 08/29/2016 KAITY DO, SILVIANO Steele Ot M25.562 PAIN IN LEFT KNEE 08/29/2016 KAITY DO, SILVIANO Steele Ot M23.262 DERANGEMENT OF LAT MENSC DUE TO OLD TEAR 08/29/2016 KAITY DO, SILVIANO Steele Ot M67.462 GANGLION, LEFT KNEE 08/29/2016 KAITY DO, SILVIANO Steele Ot M71.38 OTHER BURSAL CYST, OTHER SITE 08/29/2016 KAITY DO, SILVIANO Steele Ot M94.262 CHONDROMALACIA, LEFT KNEE 09/09/2016 KAITY DO, SILVIANO Steele Ot M23.262 DERANGEMENT OF LAT MENSC DUE TO OLD TEAR 09/09/2016 KAITY DO, SILVIANO Steele Ot M67.462 GANGLION, LEFT KNEE 09/09/2016 KAITY DO, SILVIANO Steele Ot M71.38 OTHER BURSAL CYST, OTHER SITE 09/09/2016 KAITY DO, SILVIANO Steele Ot M94.262 CHONDROMALACIA, LEFT KNEE 09/15/2016 KAITY DO, SILVIANO Steele Ot M23.262 DERANGEMENT OF LAT MENSC DUE TO OLD TEAR 09/15/2016 KAITY DO, SILVIANO Steele Ot M67.462 GANGLION, LEFT KNEE 09/15/2016 KAITY DO, SILVIANO Steele Ot M71.38 OTHER BURSAL CYST, OTHER SITE 09/15/2016 KAITY DO, SILVIANO Steele Ot M94.262 CHONDROMALACIA, LEFT KNEE 03/18/2018 JOSIE RODRIGUEZ, LUDIN Ivette Ot Z12.31 ENCNTR SCREEN MAMMOGRAM FOR MALIGNANT NE Procedures There is no data. Results Test Result Range Complete blood count (CBC) with automated white blood cell (WBC) differential - 08/22/16 10:50 Blood leukocytes automated count (number/volume) 6.4 10*3/uL 4.3-11.0 Blood erythrocytes automated count (number/volume) 4.58 10*6/uL 4.35-5.85 Venous blood hemoglobin measurement (mass/volume) 15.3 g/dL 11.5-16.0 Blood hematocrit (volume fraction) 43 % 35-52 Automated erythrocyte mean corpuscular volume 95 [foz_us] 80-99 Automated erythrocyte mean corpuscular hemoglobin (mass per erythrocyte) 33 pg 25-34 Automated erythrocyte mean corpuscular hemoglobin concentration measurement ( mass/volume) 35 g/dL 32-36 Automated erythrocyte distribution width ratio 14.4 % 10.0-14.5 Automated blood platelet count (count/volume) 131 10*3/uL 130-400 Automated blood platelet mean volume measurement 9.8 [foz_us] 7.4-10.4 Automated blood neutrophils/100 leukocytes 63 % 42-75 Automated blood lymphocytes/100 leukocytes 24 % 12-44 Blood monocytes/100 leukocytes 8 % 0-12 Automated blood eosinophils/100 leukocytes 6 % 0-10 Automated blood basophils/100 leukocytes 1 % 0-10 Blood neutrophils automated count (number/volume) 4.0 10*3 1.8-7.8 Blood lymphocytes automated count (number/volume) 1.5 10*3 1.0-4.0 Blood monocytes automated count (number/volume) 0.5 10*3 0.0-1.0 Automated eosinophil count 0.4 10*3/uL 0.0-0.3 Automated blood basophil count (count/volume) 0.0 10*3/uL 0.0-0.1 Whole blood basic metabolic panel - 08/22/16 10:50 Serum or plasma sodium measurement (moles/volume) 140 mmol/L 135-145 Serum or plasma potassium measurement (moles/volume) 3.6 mmol/L 3.6-5.0 Serum or plasma chloride measurement (moles/volume) 108 mmol/L 98-107 Carbon dioxide 21 mmol/L 21-32 Serum or plasma anion gap determination (moles/volume) 11 mmol/L 5-14 Serum or plasma urea nitrogen measurement (mass/volume) 15 mg/dL 7-18 Serum or plasma creatinine measurement (mass/volume) 0.86 mg/dL 0.60-1.30 Serum or plasma urea nitrogen/creatinine mass ratio 17 NRG Serum or plasma creatinine measurement with calculation of estimated glomerular filtration rate > NRG Serum or plasma glucose measurement (mass/volume) 143 mg/dL 70-105 Serum or plasma calcium measurement (mass/volume) 9.0 mg/dL 8.5-10.1 Methicillin resistant Staphylococcus aureus (MRSA) screening culture - 10:50 Methicillin resistant Staphylococcus aureus (MRSA) screening culture NEG NRG Encounters ACCT No. Visit Date/Time Discharge Status Pt. Type Provider Facility Loc./Unit Complaint [id number] 03/21/2018 11:00:00 03/21/2018 23:59:59 CLS Preadmit HUERTER MD, LUDIN F [facility] RAD SCREENING [id number] 08/29/2016 06:17:00 08/29/2016 11:50:00 DIS Outpatient KAITY CHACONSILVIANO [facility] LT LATERAL MENISCAL TEAR AND LT TERESITA MENISCAL CYST [id number] 08/22/2016 10:13:00 08/22/2016 12:09:00 DIS Outpatient KAITY CHACONSILVIANO [facility] PREOP LATERAL MENISCAL TEAR AND PERIO MENISCAL CYST [id number] 05/18/2016 15:39:00 05/18/2016 23:59:59 CLS Outpatient KAITY CHACONSILVIANO [facility] RAD LEFT KNEE PAIN [id number] 03/14/2015 12:22:00 03/17/2015 14:15:00 DIS Inpatient MARCE NOLAN DO [facility] [address] COPD RESP FAILURE IN EXACERBATION [id number] 06/15/2014 16:25:00 06/18/2014 10:45:00 DIS Inpatient LUDIN GALINDO MD [facility] [address] COPD EXACERBATION [id number] 03/16/2014 11:50:00 03/16/2014 23:59:59 CLS Outpatient HOPE FITZPATRICK DO [facility] RAD LUNG NODULE [id number] 02/02/2014 06:00:00 02/04/2014 15:30:00 DIS Outpatient NIKOLAI ANDRES MD [facility] VAGINAL PROLAPSE, STRESS URINARY INCONTINUES [id number] 01/28/2014 12:09:00 01/28/2014 23:59:59 CLS Outpatient NIKOLAI ANDRES MD [facility] PREOP VAGINAL PROLAPSE [id number] 12/29/2013 09:40:00 12/29/2013 23:59:59 CLS Outpatient NIKOLAI ANDRES MD [facility] PREOP VAGINAL PROLAPSE STRESS URINARY INCONTINUES [id number] 12/20/2013 13:44:00 12/24/2013 12:55:00 DIS Inpatient MARCE NOLAN DO [facility] [address] COPD EXACBERATION [id number] 12/13/2013 04:48:00 12/15/2013 11:30:00 DIS Inpatient LUDIN GALINDO MD [facility] 4TH ACUTE RESPIRATORY FAILURE /COPD FLARE [id number] 11/27/2013 19:05:00 11/29/2013 12:25:00 DIS Inpatient WILLIE WITT MD [facility] 4TH COPD EXACERBATION [id number] 11/12/2013 14:47:00 11/12/2013 17:10:00 DIS Emergency ELIZ PERALES COURTROOM REPORTER [facility] ER ASTHMA [id number] 2013 11:47:00 2013 23:59:59 CLS Outpatient JUS RODRIGUEZ, MISHA Fields [facility] CARD CAD,HTN,CHF,COPD [id number] 09/24/2013 18:34:00 09/26/2013 14:05:00 DIS Inpatient LUDIN GALINDO MD [facility] 4TH COPD EXACERBATION [id number] 09/19/2013 09:44:00 09/19/2013 12:07:00 DIS Emergency [id number] 09/15/2013 01:49:00 09/16/2013 18:50:00 DIS Inpatient [id number] 09/07/2013 07:26:00 09/13/2013 16:00:00 DIS Inpatient [id number] 03/12/2013 04:10:00 03/19/2013 17:29:00 DIS Inpatient [id number] 03/08/2013 10:00:00 03/08/2013 12:17:00 DIS Emergency [id number] 09/22/2012 21:16:00 09/27/2012 17:30:00 DIS Inpatient [id number] 09/22/2012 11:48:00 09/22/2012 23:59:59 CLS Outpatient [id number] 06/19/2016 10:08:00 Document Registration
[2018-07-08] MEDS ORDERED: LACTATED RINGERS 1,000 ML IV ONE ×2 (07:20→18:45)
[2018-07-08 07:26] LABS: BASOPHILS % (AUTO) 0 % (0-10); EOSINOPHILS # (AUTO) 0.3 10^3/uL (0.0-0.3); EOSINOPHILS % (AUTO) 3 % (0-10); HEMATOCRIT 53 % (35-52); HEMOGLOBIN 19.4 G/DL (11.5-16.0); LYMPHOCYTES # (AUTO) 0.8 X 10^3 (1.0-4.0); LYMPHOCYTES % (AUTO) 8 % (12-44); MEAN CORPUSCULAR HEMOGLOBIN 34 PG (25-34); MEAN CORPUSCULAR HGB CONC 37 G/DL (32-36); MEAN CORPUSCULAR VOLUME 92 FL (80-99); MEAN PLATELET VOLUME 10.1 FL (7.4-10.4); MONOCYTES % (AUTO) 10 % (0-12); NEUTROPHILS # (AUTO) 7.4 X 10^3 (1.8-7.8); NEUTROPHILS % (AUTO) 78 % (42-75); PLATELET COUNT 159 10^3/uL (130-400); RED CELL DISTRIBUTION WIDTH 14.7 % (10.0-14.5); WHITE BLOOD COUNT 9.5 10^3/uL (4.3-11.0)
[2018-07-08] MEDS ORDERED: ORPHENADRINE 60 MG/2 ML (NORFLEX) AMP IV ONE (07:30)
[2018-07-08] MEDS ORDERED: FAMOTIDINE 20MG/2ML IV (PEPCID) IVP ONE (07:30)
[2018-07-08 07:45] LABS: ALANINE AMINOTRANSFERASE 49 U/L (0-55); ALBUMIN 5.5 GM/DL (3.2-4.5); ALKALINE PHOSPHATASE 80 U/L (40-136); BUN/CREATININE RATIO 18; CALCIUM 11.3 MG/DL (8.5-10.1); CARBON DIOXIDE 23 MMOL/L (21-32); CHLORIDE 103 MMOL/L (98-107); CREATININE SERUM 1.41 MG/DL (0.60-1.30); GFR ESTIMATED 38; GLUCOSE 178 MG/DL (70-105); LIPASE 61 U/L (8-78); MAGNESIUM 2.6 MG/DL (1.8-2.4); POTASSIUM 4.1 MMOL/L (3.6-5.0); SODIUM 141 MMOL/L (135-145); TOTAL PROTEIN 9.2 GM/DL (6.4-8.2)
[2018-07-08] MEDS ORDERED: ONDA4TAB11 PO ×2 (10:11→10:13)
--- NOTE | 2018-07-08 10:13 | ED GI ---
General Chief Complaint: Abdominal/GI Problems Stated Complaint: N/V/D Nursing Triage Note: pt brought in by ems with complaint of abd pain, n/v/d that started around 2 am. pt states she last used marijuana last night. pt states she is having leg cramps and "chest spasms". Sepsis Screen: No Definite Risk Source of Information: Patient, Old Records Exam Limitations: No Limitations History of Present Illness Date Seen by Provider: Jul 08, 2018 Time Seen by Provider: 07:04 Initial Comments This 57-year-old woman presents to the emergency room via EMS with complaints of sudden onset of nausea, vomiting, and diarrhea that started at 02:00. She then developed cramping in her lower chest and extremities. EMS administered Zofran 4 mg which stopped the vomiting. Fingerstick blood sugar was 157. EMS gave 1 L normal saline. Temperature seemed a little low at 95. Allergies and Home Medications Allergies Coded Allergies: No Known Drug Allergies (Unverified , 08/22/16) Home Medications Albuterol Sulfate 8.5 Gm Hfa.aer.ad, 2 PUFF IH BID, (Reported) Aspirin 81 Mg Tablet.dr, 81 MG PO DAILY, (Reported) Budesonide/Formoterol Fumarate 10.2 Gm Hfa.aer.ad, 2 PUFF IH BID, (Reported) Doxycycline Hyclate 100 Mg Tablet, 100 MG PO BID, (Reported) Enalapril Maleate 2.5 Mg Tablet, 2.5 MG PO BID, (Reported) Furosemide 20 Mg Tablet, 20 MG PO DAILY, (Reported) Hydrocodone/Acetaminophen 1 Each Tablet, 1 EACH PO Q4H PRN for PAIN-MILD TO MODERATE Prescribed by: NANO HILARIO on 08/29/16 0728 Loratadine 10 Mg Tab, 10 MG PO DAILY, (Reported) Metoprolol Succinate 25 Mg Tab.sr.24h, 12.5 MG PO DAILY, (Reported) TAKES 1/2 (25MG) TABLET Montelukast Sodium 10 Mg Tablet, 10 MG PO DAILY, (Reported) Ondansetron 4 Mg Tab.rapdis, 4 MG PO Q4H PRN for NAUSEA/VOMITING Prescribed by: APPLE JEFFERY on 07/08/18 1013 Potassium Chloride 10 Meq Capsule.er, 20 MEQ PO DAILY, (Reported) Sertraline Hcl 100 Mg Tablet, 150 MG PO DAILY, (Reported) TAKES 1 & 1/2 (100MG) TABLET Tiotropium [place] 1 Inh Aerp, 1 CAP INH EVERY AFTERNOON, (Reported) Patient Home Medication List Home Medication List Reviewed: Yes Review of Systems Review of Systems Constitutional: see HPI EENTM: No Symptoms Reported Respiratory: No Symptoms Reported Cardiovascular: No Symptoms Reported Gastrointestinal: See HPI Genitourinary: No Symptoms Reported Musculoskeletal: see HPI Skin: no symptoms reported Psychiatric/Neurological: No Symptoms Reported Endocrine: No Symptoms Reported Hematologic/Lymphatic: No Symptoms Reported Past Kfnrhcr-Xkdnip-Vyjvql Hx Past Med/Social Hx: Reviewed and Corrections made Patient Social History Alcohol Use: Denies Use Recreational Drug Use: Yes (prior methamphetamines and marijuana use) Drug of Choice: marijuana Smoking Status: Current Everyday Smoker Type Used: Cigarettes Recent Foreign Travel: No Contact w/Someone Who Travel: No Recent Infectious Disease Expo: No Recent Hopitalizations: No Immunizations Up To Date Tetanus Booster (TDap): Less than 5yrs PED Vaccines UTD: Yes Date of Pneumonia Vaccine: Feb 21, 2016 Date of Influenza Vaccine: Feb 21, 2016 Seasonal Allergies Seasonal Allergies: Yes Past Medical History Surgeries: Yes Section, Hysterectomy, Orthopedic (carpal tunnel) Respiratory: Yes Asthma, Sleep Apnea, COPD Currently Using CPAP: Yes Currently Using BIPAP: No Cardiac: Yes (nonischemic cardiomyopathy) Cardiomyopathy, Hypertension Neurological: No 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 Disorders: No Female 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 Disorders: Denies 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 Sexually Transmitted Disease: No HIV/AIDS: No Genitourinary: Yes Kidney Stones Gastrointestinal: Yes Hepatitis (hepatitis C) Musculoskeletal: Yes Arthritis Endocrine: No HEENT: No Loss of Vision: Bilateral Hearing Impairment: Denies Psychosocial: Yes (mood disorder) Anxiety, Depression Eczema Adverse Reaction/Blood Tranf: No Family Medical History Arthritis 19 FATHER Asthma 19 MOTHER Cardiovascular disease 19 FATHER Chest pain 19 FATHER Congestive heart failure 19 FATHER Diabetes mellitus 19 MOTHER Family history: Arthritis 19 FATHER Family history: Asthma 19 MOTHER Family history: Cardiovascular disease 19 FATHER Family history: Diabetes mellitus 19 MOTHER Family history: Hypertension 19 FATHER 19 MOTHER Heart disease 19 FATHER History of - respiratory disease 19 MOTHER Visual impairment 19 MOTHER No Family History of: AIDS Abdominal aortic aneurysm Abdominal aortic aneurysm Allen's disease Allen's disease Alcoholism Alcoholism Alzheimer's disease Aphasia Aphasia Cancer Cancer of colon Cataract Congenital heart disease Cystic fibrosis Dementia Dysphagia Family history: Allergy Family history: Alzheimer's disease Family history: Breast disease Family history: Coronary thrombosis Family history: Gastrointestinal disease Family history: Glaucoma Family history: Osteoporosis Family history: Thyroid disorder Fibrocystic disease of breast Gastroenteritis Glaucoma Headache Hearing loss Hereditary disease History of - anemia History of - disorder History of drug abuse Human immunodeficiency virus (HIV) seropositivity Hypercholesterolemia Infertile Kidney disease Malignant neoplasm of lung Myocardial infarction Parkinson's disease Psychotic disorder Seizure disorder Stroke Tuberculosis Diabetes Physical Exam Vital Signs Vital Signs - First Documented 07/08/18 07:06 Temp 96.3 Pulse 75 Resp 20 B/P (MAP) 142/92 (109) Pulse Ox 92 O2 Delivery Room Air Capillary Refill : Less Than 3 Seconds Height/Weight/BMI Height: 5'7.00" Weight: 155lbs. 3.0oz. 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, no motor/sensory deficits, alert, normal mood/affect, oriented x 3 Skin: normal color, warm/dry Progress/Results/Core Measures Results/Orders Lab Results Laboratory Tests Test 07/08/18 07:05 Range/Units White Blood Count 9.5 4.3-11.0 10^3/uL Red Blood Count 5.77 4.35-5.85 10^6/uL Hemoglobin 19.4 H 11.5-16.0 G/DL Hematocrit 53 H 35-52 % Mean Corpuscular Volume 92 80-99 FL Mean Corpuscular Hemoglobin 34 25-34 PG Mean Corpuscular Hemoglobin Concent 37 H 32-36 G/DL Red Cell Distribution Width 14.7 H 10.0-14.5 % Platelet Count 159 130-400 10^3/uL Mean Platelet Volume 10.1 7.4-10.4 FL Neutrophils (%) (Auto) 78 H 42-75 % Lymphocytes (%) (Auto) 8 L 12-44 % Monocytes (%) (Auto) 10 0-12 % Eosinophils (%) (Auto) 3 0-10 % Basophils (%) (Auto) 0 0-10 % Neutrophils # (Auto) 7.4 1.8-7.8 X 10^3 Lymphocytes # (Auto) 0.8 L 1.0-4.0 X 10^3 Monocytes # (Auto) 1.0 0.0-1.0 X 10^3 Eosinophils # (Auto) 0.3 0.0-0.3 10^3/uL Basophils # (Auto) 0.0 0.0-0.1 10^3/uL Sodium Level 141 135-145 MMOL/L Potassium Level 4.1 3.6-5.0 MMOL/L Chloride Level 103 98-107 MMOL/L Carbon Dioxide Level 23 21-32 MMOL/L Anion Gap 15 H 5-14 MMOL/L Blood Urea Nitrogen 26 H 7-18 MG/DL Creatinine 1.41 H 0.60-1.30 MG/DL Estimat Glomerular Filtration Rate 38 BUN/Creatinine Ratio 18 Glucose Level 178 H 70-105 MG/DL Calcium Level 11.3 H 8.5-10.1 MG/DL Corrected Calcium 8.5-10.1 MG/DL Magnesium Level 2.6 H 1.8-2.4 MG/DL Total Bilirubin 1.0 0.1-1.0 MG/DL Aspartate Amino Transf (AST/SGOT) 50 H 5-34 U/L Alanine Aminotransferase (ALT/SGPT) 49 0-55 U/L Alkaline Phosphatase 80 40-136 U/L Total Protein 9.2 H 6.4-8.2 GM/DL Albumin 5.5 H 3.2-4.5 GM/DL Lipase 61 8-78 U/L My Orders Orders - APPLE MCCULLOUGH MD Cbc With Automated Diff (07/08/18 07:20) Comprehensive Metabolic Panel (07/08/18 07:20) Magnesium (07/08/18 07:20) Saline Lock/Iv-Start (07/08/18 07:20) Famotidine Injection (Pepcid Injection) (07/08/18 07:30) Lactated Ringers (Lr 1000 Ml Iv Solution (07/08/18 07:20) Orphenadrine Injection (Norflex Injectio (07/08/18 07:30) Ekg Tracing (07/08/18 07:22) Monitor-Rhythm Ecg Trace Only (07/08/18 07:22) Lipase (07/08/18 07:22) Lactated Ringers (Lr 1000 Ml Iv Solution (07/08/18 18:45) Medications Given in ED Vital Signs/I&O 07/08/18 07/08/18 07:06 10:29 Temp 96.3 66.0 Pulse 75 66 Resp 20 17 B/P (MAP) 142/92 (109) 130/71 (90) Pulse Ox 92 98 O2 Delivery Room Air Room Air Blood Pressure Mean: 109 Progress Progress Note : Progress Note Patient received an additional liter of IV fluid. Labs were reviewed. Norflex was given for spasming. Pepcid was given. Patient felt better after the interventions and had no further vomiting or diarrhea. Initial ECG Impression Date: Jul 08, 2018 Initial ECG Impression Time: 07:10 Initial ECG Rate: 71 Initial ECG Rhythm: Normal Sinus Comment Sinus rhythm with no ST elevation or depression. Left anterior fascicular block by automated read. No axis deviation. Departure Impression Primary Impression: Nausea vomiting and diarrhea Additional Impressions: Muscle cramping Atypical chest pain Renal insufficiency Disposition: 01 HOME, SELF-CARE Condition: Improved Departure-Patient Inst. Decision time for Depature: 10:08 Referrals: LUDIN GALINDO MD (PCP/Family) Primary Care Physician Patient Instructions: Clear Liquid Diet Add. Discharge Instructions: Stick to a clear liquid diet for the remainder of the day. Then you may start adding small quantities of bland food as tolerated. For nausea and vomiting, use Zofran as prescribed. Return to care if you have worsening symptoms again. All discharge instructions reviewed with patient and/or family. Voiced understanding. Scripts Ondansetron (Ondansetron Odt) 4 Mg Tab.rapdis 4 MG PO Q4H PRN for NAUSEA/VOMITING, #10 TAB Prov: APPLE MCCULLOUGH MD 07/08/18 APPLE MCCULLOUGH MD Jul 08, 2018 10:13
[2018-07-08 10:29] VITALS: BP 130/71
== END 2018-07-08 10:29 | disposition home or self-care (01) ==
LOC: EDUNIT# 07:02 → ER 07:04
DX: R11.2 Nausea with vomiting, unspecified (principal); R19.7 Diarrhea, unspecified; R07.9 Chest pain, unspecified; N28.9 Disorder of kidney and ureter, unspecified; R25.2 Cramp and spasm; J44.9 Chronic obstructive pulmonary disease, unspecified; G47.30 Sleep apnea, unspecified; I42.9 Cardiomyopathy, unspecified; I10 Essential (primary) hypertension; B19.20 Unspecified viral hepatitis C without hepatic coma; F41.9 Anxiety disorder, unspecified; F32.9 Major depressive disorder, single episode, unspecified; F39 Unspecified mood [affective] disorder; F17.210 Nicotine dependence, cigarettes, uncomplicated; F12.10 Cannabis abuse, uncomplicated; Z87.442 Personal history of urinary calculi; Z82.49 Family history of ischemic heart disease and other diseases of the circulatory system; Z98.890 Other specified postprocedural states; Z79.51 Long term (current) use of inhaled steroids; Z79.82 Long term (current) use of aspirin; Z90.710 Acquired absence of both cervix and uterus
CPT/HCPCS: 36415; 80053; 83690; 83735; 85025; 93005; 93041; 96361; 96374; 96375

== ENCOUNTER 2021-02-02 20:46 | Inpatient (IN) | payer MEDICARE ==
[~2021-02-02] VITALS: Ht 165 cm; Wt 67.6 kg
[~2021-02-02 20:46] MED LIST changes: +ONDA4TAB11 PO; -TRAM50TA2 PO; +TRM50T PO
[2021-02-02 21:43] LABS: BASOPHILS % (AUTO) 1 % (0-10); LYMPHOCYTES % (AUTO) 18 % (12-44)
[2021-02-02 21:45] LABS: EOSINOPHILS # (AUTO) 0.5 10^3/uL (0.0-0.3); EOSINOPHILS % (AUTO) 5 % (0-10); HEMATOCRIT 49 % (35-52); HEMOGLOBIN 16.9 g/dL (11.5-16.0); LYMPHOCYTES # (AUTO) 1.5 10^3/uL (1.0-4.0); MEAN CORPUSCULAR HEMOGLOBIN 33 pg (25-34); MEAN CORPUSCULAR HGB CONC 34 g/dL (32-36); MEAN CORPUSCULAR VOLUME 95 fL (80-99); MEAN PLATELET VOLUME 9.6 fL (9.0-12.2); MONOCYTES # (AUTO) 0.5 10^3/uL (0.0-1.0); MONOCYTES % (AUTO) 6 % (0-12); NEUTROPHILS # (AUTO) 5.9 10^3/uL (1.8-7.8); NEUTROPHILS % (AUTO) 70 % (42-75); PLATELET COUNT 121 10^3/uL (130-400); WHITE BLOOD COUNT 8.4 10^3/uL (4.3-11.0)
[2021-02-02] MEDS ORDERED: methylPREDNISolone 125 MG (Solu-MEDROL) VIAL IVP ONE (22:00)
[2021-02-02] MEDS ORDERED: RT-ALBUTEROL/IPRATROPIUM 3 ML (DUONEB) VIAL INH ONE (22:00)
[2021-02-02 22:02] LABS: ABG BASE EXCESS -2.6 MMOL/L (-2.5-2.5); ABG OXYGEN SATURATION 100 % (94-100); ABG PCO2 40 MMHG (35-45); ABG PH 7.36 (7.37-7.43); ABG PO2 171 MMHG (79-93); ABG TCO2 23.3 MMOL/L (21.0-31.0)
--- NOTE | 2021-02-02 22:04 | ED Cough/URI ---
General Chief Complaint: Respiratory Problems Stated Complaint: SOB Nursing Triage Note: pt presents to the ed c/o exertional sob that has been ongoing for the last 2-3 days. pt was seen at the medical center clinic, put on abx and steroids. pt states she has been using her albuterol every 2-3 hours and was referred to the ed by [facility] after coming in at 1700 and stating she was not improving Source: patient Exam Limitations: no limitations (ELIZ PERALES APRN) History of Present Illness Date Seen by Provider: Feb 02, 2021 Time Seen by Provider: 21:50 Initial Comments To ER with shortness of breath ongoing for the past 2 to 3 days. Recently finished antibiotics and steroids. She has been using her inhaler quite frequently. History of several admissions for COPD exacerbation and hypercapnia. History of nonischemic cardiomyopathy and COPD. She is not oxygen dependent at home. Timing/Duration: constant Severity/Quality: productive cough Associated Symptoms: cough, shortness of breath (ELIZ PERALES APRN) Allergies and Home Medications Allergies Coded Allergies: No Known Drug Allergies (Unverified , 08/22/16) Patient Home Medication List Home Medication List Reviewed: Yes (ELIZ PERALES APRN) Albuterol Sulfate (Proair Hfa) 8.5 Gm Hfa.aer.ad, 2 PUFF IH BID, (Reported) Entered as Reported by: FADI YUEN on 03/15/15 1010 Aspirin ([place] Aspirin) 81 Mg Tablet.dr, 81 MG PO DAILY, (Reported) Entered as Reported by: FADI YUEN on 03/12/13 1331 Budesonide/Formoterol Fumarate (Symbicort 160-4.5 Mcg Inhaler) 10.2 Gm Hfa.aer.ad, 2 PUFF IH BID, (Reported) Entered as Reported by: FADI YUEN on 03/15/15 1006 Doxycycline Hyclate (Doxycycline Hyclate) 100 Mg Tablet, 100 MG PO BID, (Reported) Entered as Reported by: ERIK COX on 08/29/16 0651 Enalapril Maleate (Enalapril Maleate) 2.5 Mg Tablet, 2.5 MG PO BID, (Reported) Entered as Reported by: FADI YUEN on 09/25/13 0931 Furosemide (Furosemide) 20 Mg Tablet, 20 MG PO DAILY, (Reported) Entered as Reported by: MARY FULTON on 08/22/16 1030 Hydrocodone/Acetaminophen ([place] 7.5-325 Tablet) 1 Each Tablet, 1 EACH PO Q4H PRN for PAIN-MILD TO MODERATE Prescribed by: NANO HILARIO on 08/29/16 0728 Loratadine (Claritin) 10 Mg Tab, 10 MG PO DAILY, (Reported) Entered as Reported by: NOMAN SOLIMAN on 11/28/13 0926 Metoprolol Succinate (Metoprolol Succinate) 25 Mg Tab.sr.24h, 12.5 MG PO DAILY, (Reported) Entered as Reported by: FADI YUNE on 06/16/14 0953 Montelukast Sodium (Montelukast Sodium) 10 Mg Tablet, 10 MG PO DAILY, (Reported) Entered as Reported by: NOMAN SOLIMAN on 11/28/13 09 Ondansetron (Ondansetron Odt) 4 Mg Tab.rapdis, 4 MG PO Q4H PRN for NAUSEA/VOMITING Prescribed by: APPLE JEFFERY on 07/08/18 1013 Potassium Chloride (Potassium Chloride) 10 Meq Capsule.er, 20 MEQ PO DAILY, (Reported) Entered as Reported by: MARY FULTON on 08/22/16 1030 Sertraline Hcl (Sertraline Hcl) 100 Mg Tablet, 150 MG PO DAILY, (Reported) Entered as Reported by: NOMAN SOLIMAN on 11/28/13 0926 Tiotropium [place] (Spiriva) 1 Inh Aerp, 1 CAP INH EVERY AFTERNOON, (Reported) Entered as Reported by: FADI YUEN on 06/16/14 0953 Review of Systems Review of Systems Constitutional: see HPI EENTM: see HPI Respiratory: see HPI, cough, short of breath Genitourinary: no symptoms reported Musculoskeletal: no symptoms reported Skin: no symptoms reported Psychiatric/Neurological: No Symptoms Reported (ELIZ PERALES APRN) Past Ichftry-Kepnnp-Dgtmcv Hx Immunizations Up To Date Tetanus Booster (TDap): Less than 5yrs PED Vaccines UTD: Yes (ELZI PERALES APRN) Seasonal Allergies Seasonal Allergies: Yes (ELIZ PERALES APRN) Past Medical History Surgeries: Yes Section, Hysterectomy, Orthopedic Respiratory: Yes Asthma, Sleep Apnea, COPD Currently Using CPAP: Yes Currently Using BIPAP: No Cardiac: Yes (nonischemic cardiomyopathy) Cardiomyopathy, Hypertension Neurological: No 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 Disorders: No Female 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 Disorders: 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 Sexually Transmitted Disease: No HIV/AIDS: No Genitourinary: Yes Kidney Stones Gastrointestinal: Yes Hepatitis Musculoskeletal: Yes Arthritis Endocrine: No HEENT: No Loss of Vision: Bilateral Hearing Impairment: Denies Psychosocial: Yes (mood disorder) Anxiety, Depression Eczema Adverse Reaction/Blood Tranf: No (ELIZ PERALES APRN) Family Medical History Arthritis 19 FATHER Asthma 19 MOTHER Cardiovascular disease 19 FATHER Chest pain 19 FATHER Congestive heart failure 19 FATHER Diabetes mellitus 19 MOTHER Family history: Arthritis 19 FATHER Family history: Asthma 19 MOTHER Family history: Cardiovascular disease 19 FATHER Family history: Diabetes mellitus 19 MOTHER Family history: Hypertension 19 FATHER 19 MOTHER Heart disease 19 FATHER History of - respiratory disease 19 MOTHER Visual impairment 19 MOTHER No Family History of: AIDS Abdominal aortic aneurysm Abdominal aortic aneurysm [place]'s disease Allen's disease Alcoholism Alcoholism Alzheimer's disease Aphasia Aphasia Cancer Cancer of colon Cataract Congenital heart disease Cystic fibrosis Dementia Dysphagia Family history: Allergy Family history: Alzheimer's disease Family history: Breast disease Family history: Coronary thrombosis Family history: Gastrointestinal disease Family history: Glaucoma Family history: Osteoporosis Family history: Thyroid disorder Fibrocystic disease of breast Gastroenteritis Glaucoma Headache Hearing loss Hereditary disease History of - anemia History of - disorder History of drug abuse Human immunodeficiency virus (HIV) seropositivity Hypercholesterolemia Infertile Kidney disease Malignant neoplasm of lung Myocardial infarction Parkinson's disease Psychotic disorder Seizure disorder Stroke Tuberculosis Diabetes (ELIZ PERALES APRN) Physical Exam Vital Signs - First Documented 02/02/21 21:25 Temp 36.9 Pulse 102 Resp 26 B/P (MAP) 154/95 (114) Pulse Ox 97 O2 Delivery OxyMask (APPLE MCCULLOUGH MD) Capillary Refill : Less Than 3 Seconds (ELIZ PERALES APRN) Height: 5'7.00" Weight: 155lbs. 3.0oz. 70.856739id; 24.00 BMI Method:Stated General Appearance: WD/WN, no apparent distress, other (Ambulatory to room 9 without assistance. However she is quite hypoxic on arrival at about 79% on room air.) Respiratory: no respiratory distress, decreased breath sounds, wheezing Cardiovascular: regular rate, rhythm, no murmur Gastrointestinal: normal bowel sounds, non tender Extremities: normal range of motion, non-tender Neurologic/Psychiatric: alert, normal mood/affect, oriented x 3 Skin: normal color, warm/dry (ELIZ PERALES APRN) Progress/Results/Core Measures Suspected Sepsis SIRS Temperature: Pulse: 102 Respiratory Rate: 26 Laboratory Tests 02/02/21 21:12: White Blood Count 8.4 Blood Pressure 154 /95 Mean: 114 Laboratory Tests 02/02/21 21:12: Platelet Count 121L 02/02/21 21:30: Creatinine 0.89 (ELIZ PERALES APRN) Results/Orders Lab Results Laboratory Tests Test 02/02/21 21:12 02/02/21 21:30 02/02/21 21:53 Range/Units White Blood Count 8.4 4.3-11.0 10^3/uL Red Blood Count 5.20 H 3.80-5.11 10^6/uL Hemoglobin 16.9 H 11.5-16.0 g/dL Hematocrit 49 35-52 % Mean Corpuscular Volume 95 80-99 fL Mean Corpuscular Hemoglobin 33 25-34 pg Mean Corpuscular Hemoglobin Concent 34 32-36 g/dL Red Cell Distribution Width 13.9 10.0-14.5 % Platelet Count 121 L 130-400 10^3/uL Mean Platelet Volume 9.6 9.0-12.2 fL Immature Granulocyte % (Auto) 0 % Neutrophils (%) (Auto) 70 42-75 % Lymphocytes (%) (Auto) 18 12-44 % Monocytes (%) (Auto) 6 0-12 % Eosinophils (%) (Auto) 5 0-10 % Basophils (%) (Auto) 1 0-10 % Neutrophils # (Auto) 5.9 1.8-7.8 10^3/uL Lymphocytes # (Auto) 1.5 1.0-4.0 10^3/uL Monocytes # (Auto) 0.5 0.0-1.0 10^3/uL Eosinophils # (Auto) 0.5 H 0.0-0.3 10^3/uL Basophils # (Auto) 0.0 0.0-0.1 10^3/uL Immature Granulocyte # (Auto) 0.0 0.0-0.1 10^3/uL Percent Immature Platelet Fraction 1.7 0.0-7.6 % D-Dimer 0.38 0.00-0.49 UG/ML Sodium Level 141 135-145 MMOL/L Potassium Level 3.8 3.6-5.0 MMOL/L Chloride Level 110 H 98-107 MMOL/L Carbon Dioxide Level 20 L 21-32 MMOL/L Anion Gap 11 5-14 MMOL/L Blood Urea Nitrogen 16 7-18 MG/DL Creatinine 0.89 0.60-1.30 MG/DL Estimat Glomerular Filtration Rate 65 BUN/Creatinine Ratio 18 Glucose Level 93 70-105 MG/DL Calcium Level 9.3 8.5-10.1 MG/DL B-Type Natriuretic Peptide 24.7 <100.0 PG/ML Procalcitonin 0.03 <0.10 NG/ML SARS-CoV-2 RNA (RT-PCR) Not Detected Not Detecte Blood Gas Puncture Site UNK Blood Gas Patient Temperature 37.0 Arterial Blood pH 7.36 L 7.37-7.43 Arterial Blood Partial Pressure CO2 40 35-45 MMHG Arterial Blood Partial Pressure O2 171 H 79-93 MMHG Arterial Blood HCO3 22 L 23-27 MMOL/L Arterial Blood Total CO2 23.3 21.0-31.0 MMOL/L Arterial Blood Oxygen Saturation 100 94-100 % Arterial Blood Base Excess -2.6 L -2.5-2.5 MMOL/L Yoni Test UNK Blood Gas Ventilator Setting NA Blood Gas Inspired Oxygen UNK (APPLE MCCULLOUGH MD) Medications Given in ED Current Medications Medications Dose Ordered Sig/Alphonse Route Start Time Stop Time Status Last Admin Dose Admin Albuterol/ Ipratropium 3 ml ONCE ONCE INH 02/02/21 22:00 02/02/21 22:01 DC 02/02/21 22:01 3 ML Methylprednisolone Sodium Succinate 125 mg ONCE ONCE IVP 02/02/21 22:00 02/02/21 22:01 DC 02/02/21 22:01 125 MG (APPLE MCCULLOUGH MD) Vital Signs/I&O 02/02/21 21:25 Temp 36.9 Pulse 102 Resp 26 B/P (MAP) 154/95 (114) Pulse Ox 97 O2 Delivery OxyMask (APPLE MCCULLOUGH MD) Vital Signs/I&O Capillary Refill : Less Than 3 Seconds (ELIZ PERALES APRN) Blood Pressure Mean: 114 Diagnostic Imaging Diagonstic Imaging: Xray Comments NAME: HANK BATISTA [facility] REC#: [id number] PT STATUS: REG ER : 1960 PHYSICIAN: ELIZ PERALES APRN ADMIT DATE: 02/02/21/ER Signed Date of Exam:02/02/21 CHEST 1 VIEW, AP/PA ONLY INDICATION: Dyspnea. EXAMINATION: Single AP view of the chest was obtained. COMPARISON: Study of 03/14/2015. FINDINGS: Heart size and pulmonary vascularity are within normal limits, and the lungs are clear, bilaterally. IMPRESSION: Unremarkable chest. Dictated by: Dictated on workstation # [id number] Dict: 02/02/212213 Trans: 02/02/212215 [facility] [id number] Interpreted by: NISH AGUILAR MD Electronically signed by: NISH AGUILAR MD 02/02/212215 (ELIZ PERALES APRN) Departure Communication (Admissions) 2227-EKG shows sinus rhythm no ectopy no ST segment change I spoke with Dr. Yates will [facility] [place] (ELIZ PERALES APRN) Impression Primary Impression: COPD with exacerbation Disposition: ADMITTED INPATIENT Condition: Stable Admissions Decision to Admit Reason: Admit from ER (General) Decision to Admit/Date: Feb 02, 2021 Time/Decision to Admit Time: 22:13 (ELIZ PERALES APRN) Departure-Patient Inst. Referrals: LUDIN GALINDO MD (PCP/Family) Primary Care Physician ATTENDING PHYSICIAN NOTE: I was physically present as attending physician in the emergency department during the care of this patient, but I was not directly involved in the decision making or delivery of care for this patient. (APPLE MCCULLOUGH MD) LEIZ PERALES APRN Feb 02, 2021 22:04 APPLE MCCULLOUGH MD Feb 03, 2021 08:43
[2021-02-02 22:14] LABS: POTASSIUM 3.8 MMOL/L (3.6-5.0)
[2021-02-02 22:15] LABS: CALCIUM 9.3 MG/DL (8.5-10.1)
[2021-02-02] MEDS ORDERED: RT-ALBUTEROL SULF 2.5 MG/3 ML PRE-MIX VIAL INH ONE (22:15)
--- NOTE | 2021-02-02 22:16 | Diagnostic Imaging Report ---
INDICATION: Dyspnea. EXAMINATION: Single AP view of the chest was obtained. COMPARISON: Study of 03/14/2015. FINDINGS: Heart size and pulmonary vascularity are within normal limits, and the lungs are clear, bilaterally. IMPRESSION: Unremarkable chest. Dictated by: Dictated on workstation # [id number]
[2021-02-02 22:20] LABS: CREATININE SERUM 0.89 MG/DL (0.60-1.30)
[2021-02-02] MEDS ORDERED: LACTATED RINGERS 1,000 ML IV ONE (23:01)
[2021-02-03 02:03] VITALS: BP 154/95
[2021-02-03] MEDS ORDERED: RT-ALBUTEROL/IPRATROPIUM 3 ML (DUONEB) VIAL INH PRN (02:15)
[2021-02-03 04:00] VITALS: BP 134/90
[2021-02-03] MEDS ORDERED: ONDANSETRON 4 MG/2 ML (SDV) Z0FRAN IVP PRN ×2 (04:15→11:00)
[2021-02-03] MEDS ORDERED: LACTATED RINGERS 1,000 ML IV SCH (04:15)
[2021-02-03] MEDS: methylPREDNISolone 40 MG/ML (Solu-MEDROL) VIAL IV SCH ×3 (06:17→22:29)
[2021-02-03] MEDS: RT-ALBUTEROL/IPRATROPIUM 3 ML (DUONEB) VIAL INH SCH ×4 (06:33→19:15)
[2021-02-03 07:48] VITALS: BP 131/92
[2021-02-03] MEDS: ENOXAPARIN 40 MG/0.4 ML (LOVENOX) SYR SC SCH (07:50)
[2021-02-03] MEDS ORDERED: DOCUSATE SODIUM 100 MG (COLACE) CAP PO PRN (11:00)
[2021-02-03] MEDS ORDERED: LORATADINE (CLARITIN) 10 MG TAB PO ONE (11:00)
[2021-02-03] MEDS ORDERED: ADVAIR HFA 115/21 MCG INHALER 8 GM IH SCH (11:00)
[2021-02-03] MEDS ORDERED: CALCIUM CARBONATE 500 MG (TUMS) TAB.CHEW PO PRN (11:00)
[2021-02-03] MEDS ORDERED: diphenhydrAMINE 25 MG TAB (BENADRYL) PO PRN (11:00)
[2021-02-03] MEDS ORDERED: LOPERAMIDE 2 MG (IMODIUM) TABLET PO PRN (11:00)
[2021-02-03] MEDS ORDERED: SERTRALINE 50 MG (ZOLOFT) TABLET PO ONE (11:00)
[2021-02-03] MEDS ORDERED: SERTRALINE 100 MG (ZOLOFT) TAB PO ONE (11:00)
[2021-02-03] MEDS ORDERED: FAMOTIDINE 20 MG (PEPCID) TABLET PO ONE (11:00)
[2021-02-03] MEDS ORDERED: ACETAMINOPHEN 325 MG TABLET PO PRN (11:15)
[2021-02-03] MEDS: NICOTINE 21 MG (NICODERM) PATCH TD SCH (11:32)
[2021-02-03 11:34] VITALS: BP 163/98
[2021-02-03] MEDS ORDERED: RT-ALBUINH IH (11:50)
[2021-02-03] MEDS ORDERED: ENLP2.5T PO (11:50)
[2021-02-03] MEDS ORDERED: MONT10TA32 PO (11:50)
[2021-02-03] MEDS ORDERED: LORA10TA7 PO (11:50)
[2021-02-03] MEDS ORDERED: FLUT1DIS27 IH (11:50)
[2021-02-03] MEDS ORDERED: GUAI120013 PO (11:50)
[2021-02-03] MEDS ORDERED: CEFD300C3 PO (11:50)
[2021-02-03] MEDS ORDERED: POTA10TA PO (11:50)
[2021-02-03] MEDS ORDERED: ASPI-1238 PO (11:50)
[2021-02-03] MEDS ORDERED: SERT-414 PO (11:50)
[2021-02-03] MEDS ORDERED: ALBU2.5V4 NEB (11:50)
[2021-02-03] MEDS ORDERED: MTP25TSR PO (11:50)
[2021-02-03] MEDS ORDERED: TIOT18CA2 IH (11:50)
--- NOTE | 2021-02-03 13:21 | History & Physical-Hospitalist ---
POLI ECHEVARRIA 02/03/21 1321: History of Present Illness HPI/Chief Complaint CC: SOB on exertion HPI: A 60yo F presents to the ED for SOB on exertion for the past 2 to 3 days with no improvements with the use of her inhaler. She does report chest tight ness, but denies CP. She has previously been hospitalized several times for COPD exacerbation in which her stay ranged from 2 to 5 days. She feels the same when compared to her previous hospital stays. She denies exerting herself over what she typically does on a given day. She has been an on and off smoker for the last 25 years smoking one pack a day as well as doing cannabis for the last 10 years which may have contributed to her hospitalization. Additional risk factors include allergies to pets that include cats which she has at home, but denies any issues unless she has to clean the litter box, and seasonal allergies which make her symptoms worse when she is outside. Source: patient Exam Limitations: no limitations Date Seen 02/03/21 Time Seen by a Provider: 08:30 Attending Physician Danielle Yates DO PCP Siva Lutz MD Referring Physician Date of Admission Feb 02, 2021 at 22:13 Home Medications & Allergies Home Medications Reviewed patient Home Medication Reconciliation performed by pharmacy medication reconciliations service center technician and/or nursing. Patients Allergies have been reviewed. Allergies Allergies Coded Allergies No Known Drug Allergies (Unverified08/22/16) No food allergies, seasonal allergies, and pet allergies(cats) Past Elybgai-Ntzocw-Ctnegz Hx Patient Social History Employed/Student: retired Tobacco Use?: Yes Smoking Status: Former Smoker Substance use?: No Alcohol Use?: No Additional Alcohol Comments: currently does not consume ETOH, but previously would consume on occasion Immunizations Up To Date Date of Influenza Vaccine: Feb 21, 2016 Hepatitis A: Yes Hepatitis B: Yes PED Vaccines UTD: Yes Date of Pneumonia Vaccine: Feb 21, 2016 Seasonal Allergies Seasonal Allergies: Yes Current Status status: No Advance Directives: No Primary Language: Kosovan Preferred Spoken Language: Kosovan Past Medical History Surgeries: Section, Hysterectomy, Orthopedic Asthma, Sleep Apnea, COPD Currently Using CPAP: Yes Currently Using BIPAP: No Cardiomyopathy, Hypertension 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 COPD- on vent to mask at night 2. CHF due to nonischemic cardiomyopathy, last EF 50% 10/2013 3. Hepatitis C- SP treatment, viral load reported as negative 4. Tobaccoism 5. HTN 6. Mood Disorder 7. Anxiety 8. Asthma Dx at age 12 9. Kidney Stones 10. HLP 11. Remote history of Methamphetamine use 12. History of THC use Past Surgical History 1. Hysterectomy 2. section 3. Carpal tunnel surgery 4. Liver Biopsy Family Medical History Arthritis 19 FATHER Asthma 19 MOTHER Cardiovascular disease 19 FATHER Chest pain 19 FATHER Congestive heart failure 19 FATHER Diabetes mellitus 19 MOTHER Family history: Arthritis 19 FATHER Family history: Asthma 19 MOTHER Family history: Cardiovascular disease 19 FATHER Family history: Diabetes mellitus 19 MOTHER Family history: Hypertension 19 FATHER 19 MOTHER Heart disease 19 FATHER History of - respiratory disease 19 MOTHER Visual impairment 19 MOTHER No Family History of: AIDS Abdominal aortic aneurysm Abdominal aortic aneurysm [place]'s disease Allen's disease Alcoholism Alcoholism Alzheimer's disease Aphasia Aphasia Cancer Cancer of colon Cataract Congenital heart disease Cystic fibrosis Dementia Dysphagia Family history: Allergy Family history: Alzheimer's disease Family history: Breast disease Family history: Coronary thrombosis Family history: Gastrointestinal disease Family history: Glaucoma Family history: Osteoporosis Family history: Thyroid disorder Fibrocystic disease of breast Gastroenteritis Glaucoma Headache Hearing loss Hereditary disease History of - anemia History of - disorder History of drug abuse Human immunodeficiency virus (HIV) seropositivity Hypercholesterolemia Infertile Kidney disease Malignant neoplasm of lung Myocardial infarction Parkinson's disease Psychotic disorder Seizure disorder Stroke Tuberculosis Diabetes Review of Systems Respiratory: cough, dyspnea on exertion, short of breath, wheezing Cardiovascular: No chest pain, No edema, No palpitations Gastrointestinal: No constipation, No diarrhea, No nausea, No vomiting Physical Exam Physical Exam Vital Signs Vital Signs - First Documented 02/02/21 02/03/21 02/03/21 21:25 01:41 02:03 Temp 36.9 Pulse 102 Resp 26 B/P (MAP) 154/95 (114) Pulse Ox 97 O2 Delivery OxyMask O2 Flow Rate 4.00 FiO2 80 Capillary Refill : Less Than 3 Seconds Height, Weight, BMI Height: 5'7.00" Weight: 155lbs. 3.0oz. 70.147529gm; 24.00 BMI Method:Stated General Appearance: Moderate Distress Respiratory: Decreased Breath Sounds, Wheezing Cardiovascular: Regular Rate, Rhythm Results Results/Procedures Labs Laboratory Tests 02/02/21 21:12 02/02/21 21:30 Patient resulted labs reviewed. Assessment/Plan Assessment and Plan Assessment: COPD exacerbation sepsis Plan: Transfer to 4th floor Stabilize and monitor SOB IV steroids DANIELLE YATES DO 02/04/21 0537: History of Present Illness HPI/Chief Complaint Chief complaint: Wheezing shortness of breath History of present illness: This is a 60-year-old white female with a history of COPD oxygen dependent but noncompliant who continues to smoke who presented to the ER with shortness of breath. Patient has been vaccinated against Covid. Covid swab was negative. Chest x-ray and D-dimer were negative. Patient feels much better but having a lot of anxiety and labile emotions. Pulmonary consultation recommended compliance with oxygen supplementation. He would like a pulmonary function test as an outpatient in pulmonary clinic. Source: patient Exam Limitations: no limitations Past Nmogfci-Nywzcw-Sqldws Hx Patient Social History Marrital Status: single Employed/Student: retired Smoking Status: Current Everyday Smoker Past Medical History COPD Hypertension Anxiety, Depression Family Medical History Arthritis 19 FATHER Asthma 19 MOTHER Cardiovascular disease 19 FATHER Chest pain 19 FATHER Congestive heart failure 19 FATHER Diabetes mellitus 19 MOTHER Family history: Arthritis 19 FATHER Family history: Asthma 19 MOTHER Family history: Cardiovascular disease 19 FATHER Family history: Diabetes mellitus 19 MOTHER Family history: Hypertension 19 FATHER 19 MOTHER Heart disease 19 FATHER History of - respiratory disease 19 MOTHER Visual impairment 19 MOTHER No Family History of: AIDS Abdominal aortic aneurysm Abdominal aortic aneurysm Allen's disease Allen's disease Alcoholism Alcoholism Alzheimer's disease Aphasia Aphasia Cancer Cancer of colon Cataract Congenital heart disease Cystic fibrosis Dementia Dysphagia Family history: Allergy Family history: Alzheimer's disease Family history: Breast disease Family history: Coronary thrombosis Family history: Gastrointestinal disease Family history: Glaucoma Family history: Osteoporosis Family history: Thyroid disorder Fibrocystic disease of breast Gastroenteritis Glaucoma Headache Hearing loss Hereditary disease History of - anemia History of - disorder History of drug abuse Human immunodeficiency virus (HIV) seropositivity Hypercholesterolemia Infertile Kidney disease Malignant neoplasm of lung Myocardial infarction Parkinson's disease Psychotic disorder Seizure disorder Stroke Tuberculosis Review of Systems Constitutional: see HPI, malaise, weakness Respiratory: cough, dyspnea on exertion, short of breath, wheezing Physical Exam Physical Exam General Appearance: No Apparent Distress, Chronically ill Eyes: Right Eye Normal Inspection, Right Eye PERRL HEENT: PERRL/EOMI, Normal ENT Inspection, Pharynx Normal, Moist Mucous Membranes Neck: Full Range of Motion, Normal Inspection, Non Tender Respiratory: Chest Non Tender, No Accessory Muscle Use, No Respiratory Distress, Decreased Breath Sounds, Wheezing Cardiovascular: Regular Rate, Rhythm, No Edema, No Gallop, No JVD, No Murmur, Normal Peripheral Pulses Gastrointestinal: Normal Bowel Sounds, No Organomegaly, No Pulsatile Mass, Non Tender, Soft Back: Normal Inspection, No CVA Tenderness, No Vertebral Tenderness Extremity: Normal Capillary Refill, Normal Inspection, Normal Range of Motion, Non Tender, No Calf Tenderness, No Pedal Edema Neurologic/Psychiatric: Alert, Oriented x3, No Motor/Sensory Deficits, Normal Mood/Affect Skin: Normal Color, Warm/Dry Lymphatic: No Adenopathy Assessment/Plan Admission Diagnosis Assessment: Acute on chronic respiratory failure Hypoxia Exacerbation of COPD Current smoker Anxiety Depression Plan: Transfer to fourth floor Home meds Monitor closely Admission Status: Inpatient Order (span 2 midnights) Reason for Inpatient Admission: Severe COPD exacerbation Supervisory-Addendum Brief Verification & Attestation Participated in pt care: history, MDM, physical Personally performed: exam, history, MDM, supervision of care Care discussed with: Medical Student Procedures: n/a Results interpretation: Verified all documentation Verification and Attestation of Medical Student E/M Service A medical student performed and documented this service in my presence. I revi ewed and verified all information documented by the medical student and made modifications to such information, when appropriate. I personally performed the physical exam and medical decision making. Danielle Yates Feb 04, 2021,05:37 W[place]I Feb 03, 2021 13:21 DANIELLE YATES DO Feb 04, 2021 05:37
--- NOTE | 2021-02-03 13:35 | Pulmonary Consultation ---
History of Present Illness History of Present Illness Date Seen by Provider: Feb 03, 2021 Time Seen by Provider: 13:21 History of Present Illness 60 yo F asked to see due to SOB and cough, Has Hx of COPD, CPM, COVID PCR is negative, got COVID vaccine, Started on IV Medrol and albuterol, Has had SOB for about 4 days, On a good day can walk several blocks, can walk one half flight stairs, has daily productive of white to yellow sputum, no blood, Told has COPD for 10 years, Thinks breathing getting slowly worse. 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 Has oxygen but does not use much, thinks set at 3 lpm At home takes Advair 500/50, [place], PRN albuterol, When younger had asthma with frequent visits 2-3hospitalizations/year. Triggers were cleaning fluids, cats [has cat at home] Took immunotherapy for asthma when younger 40 y ago No family Hx of COPD Feeling better since admission, last admit for COPD 3y ago PMH + DJD in knee, hands, shoulders, +HTN, -DM, -HLD, Has CPM 2013 [ at age 13 had tick bite] sounds like had PCTA 2013, has LVEF 50% 2013neg GERD, Hep C which was treated in 2003 Sounds like had home sleep stud this year, now has CPAP machine, which is on recall. She is not using, also does not have a [employer] to send her supplies Allergies and Home Medications Allergies Coded Allergies: No Known Drug Allergies (Unverified , 08/22/16) Home Medications Albuterol Sulfate 2.5 Mg/3 Ml Vial.neb, 2.5 MG NEB Q4H PRN for SHORTNESS OF BREATH, (Reported) Albuterol Sulfate 1 Puff Puff, 2 PUFF IH Q4H PRN for SHORTNESS OF BREATH, (Reported) Aspirin 81 Mg Tablet.dr, 81 MG PO DAILY, (Reported) Cefdinir 300 Mg Capsule, 300 MG PO BID, (Reported) FILLED 02-01-2021 #14/7 DAY SUPPLY Enalapril Maleate 2.5 Mg Tablet, 2.5 MG PO DAILY, (Reported) Fluticasone/Salmeterol 1 Each Blst.w.dev, 1 EACH IH BID, (Reported) Guaifenesin 1,200 Mg Tab.er.12h, 1,200 MG PO BID, (Reported) Loratadine 10 Mg Tablet, 10 MG PO DAILY, (Reported) Metoprolol Succinate 25 Mg Tab.er.24h, 12.5 MG PO DAILY, (Reported) TAKES OF A 25MG Montelukast Sodium 10 Mg Tablet, 10 MG PO HS, (Reported) Potassium Chloride 10 Meq Tablet.er, 10 MEQ PO DAILY, (Reported) Sertraline HCl 100 Mg Tablet, 150 MG PO DAILY, (Reported) TAKES 1 & (100MG) TABS Tiotropium Gantt 1 Inh Aerp, 2 INH IH HS, (Reported) Past Medical/Social/Family Hx Patient Social History Tobacco Use?: No Smoking Status: Former Smoker Substance use?: No Immunizations Up To Date Hepatitis A: Yes Hepatitis B: Yes TB Skin Test: Negative Date of Pneumonia Vaccine: Feb 21, 2016 Current Status status: No Advance Directives: No Primary Language: Taiwanese Preferred Spoken Language: Taiwanese Past Medical History Past Medical History 1. COPD- on vent to mask at night 2. CHF due to nonischemic cardiomyopathy, last EF 50% 10/2013 3. Hepatitis C- SP treatment, viral load reported as negative 4. Tobaccoism 5. HTN 6. Mood Disorder 7. Anxiety 8. Asthma Dx at age 12 9. Kidney Stones 10. HLP 11. Remote history of Methamphetamine use 12. History of THC use Past Surgical History 1. Hysterectomy 2. section 3. Carpal tunnel surgery 4. Liver Biopsy Review of Systems Constitutional: see HPI EENTM: see HPI Respiratory: see HPI Cardiovascular: see HPI Gastrointestinal: see HPI Genitourinary: see HPI Musculoskeletal: see HPI Skin: see HPI Psychiatric/Neurological: See HPI Sepsis Event Evaluation Height, Weight, BMI Height: 5'7.00" Weight: 155lbs. 3.0oz. 70.554250tx; 24.00 BMI Method:Stated Exam Exam Patient acknowledged, consented, and participated in this virtual visit which was conducted using real time audio/video Vital Signs Date Time Temp Pulse Resp B/P (MAP) Pulse Ox O2 Delivery O2 Flow Rate FiO2 02/03/21 12:36 84 02/03/21 11:34 36.5 84 18 163/98 (119) 95 Nasal Cannula 4.00 02/03/21 10:42 96 Nasal Cannula 02/03/21 07:55 Nasal Cannula 4.00 02/03/21 07:48 36.3 90 16 131/92 (105) 96 Nasal Cannula 4.00 02/03/21 06:53 73 02/03/21 06:33 87 Room Air 02/03/21 04:00 36.6 64 15 134/90 (105) 97 Nasal Cannula 4.00 02/03/21 04:00 Nasal Cannula 4.00 02/03/21 02:03 36.9 102 97 80 02/03/21 01:41 Nasal Cannula 4.00 02/03/21 01:00 80 02/02/21 22:35 36.9 71 16 143/85 97 Room Air 02/02/21 22:27 OxyMask 02/02/21 21:25 36.9 102 26 154/95 (114) 97 OxyMask I & O 02/03/21 07:00 Intake Total 300 ml Balance 300 ml Height & Weight Height: 5'7.00" Weight: 155lbs. 3.0oz. 70.087457ak; 24.00 BMI Method:Stated General Appearance: Mild Distress Respiratory: Decreased Breath Sounds, Wheezing Cardiovascular: Regular Rate, Rhythm Capillary Refill: Less Than 3 Seconds Gastrointestinal: normal bowel sounds, non tender Extremity: No Pedal Edema Results Lab Laboratory Tests 02/02/21 21:12 02/02/21 21:30 Assessment/Plan Assessment/Plan COPD, CPM I think there are 3 issues 1. Smoking cessation is obviously needed 2. 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 I would make sure she uses oxygen in day and CPAP at night, [can bleed in oxygen thru full face mask]. or whenever she sleeps. [Her machine is part of [employer] recall, I am told they are starting to send out new ones. 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 Should get flu vaccine I think her home meds are fine though if insurance would cover Trelegy the 200 strength that would be would be more convenient. As OP would also do 6 min walk and spirometry. I think she would do well with a portable oxygen concentrator if insurance would cover but need 6 min walk first. Critical Care: Critically Ill Patient Time spent with patient (mins): 30 JENNIFER ISAACS MD Feb 03, 2021 13:34
[2021-02-03] MEDS: RT--FLUTICASONE/SALMETEROL 113-14 (AIRDUO RespiCLICK) IH SCH ×2 (14:09→19:16)
[2021-02-03] MEDS: ALPRAZolam 0.25 MG (XANAX) TAB PO PRN (14:56)
[2021-02-03 15:43] VITALS: BP 170/79
[2021-02-03 19:34] VITALS: BP 182/89
[2021-02-03] MEDS ORDERED: cloNIDine 0.1 MG (CATAPRES) TAB PO PRN (20:15)
[2021-02-03] MEDS ORDERED: cloNIDine 0.2 MG (CATAPRES) TAB ONE (20:17)
[2021-02-03] MEDS: MELATONIN 3 MG TABLET PO PRN (20:22)
[2021-02-03] MEDS: HYDROcodone/APAP 5 MG/325 MG (LORTAB) TAB PO PRN (20:22)
[2021-02-03] MEDS: FAMOTIDINE 20 MG (PEPCID) TABLET PO SCH (20:22)
[2021-02-03] MEDS: polyethylene glycoL POWDER 17 GM (MIRALAX) PACK PO SCH (20:31)
[2021-02-03] MEDS: SENNA W/DOCUSATE (SENOKOT S) TABLET PO SCH (20:31)
[2021-02-03] MEDS ORDERED: SERTRALINE 50 MG (ZOLOFT) TABLET PO SCH (21:00)
[2021-02-03] MEDS ORDERED: MONTELUKAST 10 MG (SINGULAIR) TAB PO SCH (21:00)
[2021-02-03] MEDS ORDERED: SERTRALINE 100 MG (ZOLOFT) TAB PO SCH (21:00)
[2021-02-04] VITALS: BP 129/75
[2021-02-04] MEDS: ALPRAZolam 0.25 MG (XANAX) TAB PO PRN ×2 (03:32→16:02)
[2021-02-04 04:13] VITALS: BP 124/73
[2021-02-04] MEDS: methylPREDNISolone 40 MG/ML (Solu-MEDROL) VIAL IV SCH ×3 (06:00→21:00)
[2021-02-04 06:05] LABS: BASOPHILS % (AUTO) 0 % (0-10); NEUTROPHILS # (AUTO) 5.9 10^3/uL (1.8-7.8)
[2021-02-04 06:07] LABS: EOSINOPHILS % (AUTO) 0 % (0-10); HEMATOCRIT 46 % (35-52); HEMOGLOBIN 15.5 g/dL (11.5-16.0); LYMPHOCYTES # (AUTO) 0.6 10^3/uL (1.0-4.0); LYMPHOCYTES % (AUTO) 9 % (12-44); MEAN CORPUSCULAR HEMOGLOBIN 32 pg (25-34); MEAN CORPUSCULAR HGB CONC 34 g/dL (32-36); MEAN CORPUSCULAR VOLUME 95 fL (80-99); MEAN PLATELET VOLUME 10.4 fL (9.0-12.2); MONOCYTES # (AUTO) 0.2 10^3/uL (0.0-1.0); MONOCYTES % (AUTO) 3 % (0-12); NEUTROPHILS % (AUTO) 88 % (42-75); PLATELET COUNT 120 10^3/uL (130-400); WHITE BLOOD COUNT 6.7 10^3/uL (4.3-11.0)
[2021-02-04 06:15] LABS: ALBUMIN 4.1 GM/DL (3.2-4.5); POTASSIUM 4.5 MMOL/L (3.6-5.0)
[2021-02-04 06:16] LABS: CALCIUM 9.3 MG/DL (8.5-10.1)
[2021-02-04 06:17] LABS: TOTAL PROTEIN 6.8 GM/DL (6.4-8.2)
[2021-02-04 06:19] LABS: BILIRUBIN,TOTAL 0.6 MG/DL (0.1-1.0)
[2021-02-04 06:21] LABS: CREATININE SERUM 0.87 MG/DL (0.60-1.30)
[2021-02-04 06:43] LABS: LYMPHOCYTES % (MANUAL) 10 %; MONOCYTES % (MANUAL) 6 %; NEUTROPHILS % (MANUAL) 84 %; RBC MORPH NORMAL
[2021-02-04 07:37] VITALS: BP 155/91
[2021-02-04] MEDS: RT-ALBUTEROL/IPRATROPIUM 3 ML (DUONEB) VIAL INH SCH ×4 (07:40→21:12)
[2021-02-04] MEDS: RT--FLUTICASONE/SALMETEROL 113-14 (AIRDUO RespiCLICK) IH SCH ×2 (07:40→21:23)
[2021-02-04] MEDS ORDERED: LORATADINE (CLARITIN) 10 MG TAB PO SCH (09:00)
[2021-02-04] MEDS ORDERED: ENALAPRIL 2.5 MG (VASOTEC) TAB PO SCH (09:00)
[2021-02-04] MEDS: ENOXAPARIN 40 MG/0.4 ML (LOVENOX) SYR SC SCH (09:10)
[2021-02-04] MEDS: FAMOTIDINE 20 MG (PEPCID) TABLET PO SCH ×2 (09:10→20:46)
[2021-02-04] MEDS: SENNA W/DOCUSATE (SENOKOT S) TABLET PO SCH ×2 (09:11→17:18)
[2021-02-04] MEDS: NICOTINE 21 MG (NICODERM) PATCH TD SCH (09:11)
[2021-02-04] MEDS: NICOTINE PATCH REMOVAL TP SCH (09:11)
[2021-02-04] MEDS: polyethylene glycoL POWDER 17 GM (MIRALAX) PACK PO SCH ×2 (09:11→17:17)
[2021-02-04 11:38] VITALS: BP 152/94
[2021-02-04] MEDS ORDERED: guaiFENesin (MUCINEX) 600 MG TAB PO ONE (11:45)
[2021-02-04] MEDS: HYDROcodone/APAP 5 MG/325 MG (LORTAB) TAB PO PRN ×3 (11:58→20:48)
--- NOTE | 2021-02-04 14:08 | Progress Note - Hospitalist ---
POLI ECHEVARRIA 02/04/21 1408: Subjective HPI/CC On Admission Time Seen by Provider: 08:15 Chief complaint: Wheezing shortness of breath History of present illness: This is a 60-year-old white female with a history of COPD oxygen dependent but noncompliant who continues to smoke who presented to the ER with shortness of breath. Patient has been vaccinated against Covid. Covid swab was negative. Chest x-ray and D-dimer were negative. Patient feels much better but having a lot of anxiety and labile emotions. Pulmonary c onsultation recommended compliance with oxygen supplementation. He would like a pulmonary function test as an outpatient in pulmonary clinic. Subjective/Events-last exam The patient is doing a little better than yesterday. She reports slightly improved SOB on exertion, with a headache that is on and off. She reports coughing about the same with mucus and is on N/C 3L/min with oxygen saturation of 95%. Objective Exam Vital Signs Vital Signs Date Time Temp Pulse Resp B/P (MAP) Pulse Ox O2 Delivery O2 Flow Rate FiO2 02/04/21 11:38 36.6 114 22 152/94 (113) 95 Nasal Cannula 2.00 02/03/21 02:03 80 Capillary Refill : Less Than 3 Seconds General Appearance: Moderate Distress Respiratory: No Lungs Clear, No Normal Breath Sounds, No Crackles; Decreased Breath Sounds Results/Procedures Lab Laboratory Tests 02/04/21 05:45 Patient resulted labs reviewed. Assessment/Plan Assessment and Plan Assess & Plan/Chief Complaint Assessment: COPD exacerbation Plan: Stabilize and monitor SOB IV steroids Continue to see respiratory therapist If she continues to improve she will be discharged tomorrow or the day after DANIELLE SHELLEY DO 02/05/21 0640: Subjective HPI/CC On Admission Date Seen by Provider: Feb 04, 2021 Subjective/Events-last exam Patient doing much better Still wheezing Will need IV steroids for several more days Check meds and labs Mucinex 600 mg twice daily will be restarted Maintain on 3 L of oxygen Bowels are moving Review of Systems Pulmonary: Dyspnea Objective Exam General Appearance: No Apparent Distress, WD/WN, Anxious Respiratory: Decreased Breath Sounds, Wheezing Cardiovascular: Regular Rate, Rhythm Neurologic/Psychiatric: Alert, Oriented x3, No Motor/Sensory Deficits, Normal Mood/Affect Assessment/Plan Assessment and Plan Assess & Plan/Chief Complaint Continue aggressive IV steroids Add Mucinex Supervisory-Addendum Brief Verification & Attestation Participated in pt care: history, MDM, physical Personally performed: exam, history, MDM, supervision of care Care discussed with: Medical Student Procedures: n/a Results interpretation: Verified all documentation Verification and Attestation of Medical Student E/M Service A medical student performed and documented this service in my presence. I reviewed and verified all information documented by the medical student and made modifications to such information, when appropriate. I personally performed the physical exam and medical decision making. Danielle Shelley, Feb 05, 2021,06:40 POLI ECHEVARRIA Feb 04, 2021 14:08 DANIELLE SHELLEY DO Feb 05, 2021 06:40
[2021-02-04 16:00] VITALS: BP 169/91
[2021-02-04 19:36] VITALS: BP 138/66
[2021-02-04] MEDS: MONTELUKAST 10 MG (SINGULAIR) TAB PO SCH (20:46)
[2021-02-04] MEDS: MELATONIN 3 MG TABLET PO PRN (20:46)
[2021-02-04] MEDS: guaiFENesin (MUCINEX) 600 MG TAB PO SCH (20:47)
[2021-02-04] MEDS ORDERED: guaiFENesin (MUCINEX) 600 MG TAB PO SCH (21:00)
[2021-02-05 00:21] VITALS: BP 124/70
[2021-02-05 04:10] VITALS: BP 123/74
[2021-02-05] MEDS: HYDROcodone/APAP 5 MG/325 MG (LORTAB) TAB PO PRN ×4 (05:04→22:09)
[2021-02-05] MEDS: ALPRAZolam 0.25 MG (XANAX) TAB PO PRN ×2 (05:04→22:09)
[2021-02-05] MEDS: methylPREDNISolone 40 MG/ML (Solu-MEDROL) VIAL IV SCH ×3 (06:08→21:09)
[2021-02-05] MEDS: KCL 10 MEQ TAB (MICRO K) PO SCH (06:09)
[2021-02-05 06:50] LABS: BASOPHILS % (AUTO) 0 % (0-10)
[2021-02-05 06:52] LABS: EOSINOPHILS % (AUTO) 0 % (0-10); HEMATOCRIT 45 % (35-52); HEMOGLOBIN 15.3 g/dL (11.5-16.0); LYMPHOCYTES # (AUTO) 0.8 10^3/uL (1.0-4.0); LYMPHOCYTES % (AUTO) 12 % (12-44); MEAN CORPUSCULAR HEMOGLOBIN 33 pg (25-34); MEAN CORPUSCULAR HGB CONC 34 g/dL (32-36); MEAN CORPUSCULAR VOLUME 95 fL (80-99); MONOCYTES # (AUTO) 0.3 10^3/uL (0.0-1.0); MONOCYTES % (AUTO) 5 % (0-12); NEUTROPHILS # (AUTO) 5.1 10^3/uL (1.8-7.8); NEUTROPHILS % (AUTO) 82 % (42-75); PLATELET COUNT 111 10^3/uL (130-400); WHITE BLOOD COUNT 6.2 10^3/uL (4.3-11.0)
[2021-02-05 07:00] LABS: ALBUMIN 3.9 GM/DL (3.2-4.5); POTASSIUM 4.3 MMOL/L (3.6-5.0)
[2021-02-05 07:03] LABS: TOTAL PROTEIN 6.5 GM/DL (6.4-8.2)
[2021-02-05 07:04] LABS: BILIRUBIN,TOTAL 0.6 MG/DL (0.1-1.0)
[2021-02-05 07:06] LABS: CREATININE SERUM 0.84 MG/DL (0.60-1.30)
[2021-02-05 07:19] VITALS: BP 140/80
--- NOTE | 2021-02-05 07:50 | Progress Note - Hospitalist ---
Subjective HPI/CC On Admission Date Seen by Provider: Feb 05, 2021 Time Seen by Provider: 11:00 Chief complaint: Wheezing shortness of breath History of present illness: This is a 60-year-old white female with a history of COPD oxygen dependent but noncompliant who continues to smoke who presented to the ER with shortness of breath. Patient has been vaccinated against Covid. Covid swab was negative. Chest x-ray and D-dimer were negative. Patient feels much better but having a lot of anxiety and labile emotions. Pulmonary consultation recommended compliance with oxygen supplementation. He would like a pulmonary function test as an outpatient in pulmonary clinic. Subjective/Events-last exam Patient doing much better today Denies any significant new problems Wheezing is significant We will add Mucomyst nebulizer treatments Decrease in steroids Patient has severe COPD Review of Systems Pulmonary: Dyspnea Objective Exam Vital Signs Vital Signs Date Time Temp Pulse Resp B/P (MAP) Pulse Ox O2 Delivery O2 Flow Rate FiO2 02/05/21 15:30 93 Nasal Cannula 2.00 02/05/21 12:27 36.6 78 20 149/85 (106) 02/03/21 02:03 80 Capillary Refill : Less Than 3 Seconds General Appearance: No Apparent Distress, WD/WN Respiratory: Decreased Breath Sounds, Wheezing Cardiovascular: Regular Rate, Rhythm Neurologic/Psychiatric: Alert, Oriented x3, No Motor/Sensory Deficits, Normal Mood/Affect Results/Procedures Lab Laboratory Tests 02/05/21 06:25 Patient resulted labs reviewed. Assessment/Plan Assessment and Plan Assess & Plan/Chief Complaint Assessment: Acute exacerbation of COPD Smoker Plan: IV steroids Oxygen Mucomyst Critical Care Critically Ill Patient ANTWON SHELLEY DO Feb 05, 2021 07:50
[2021-02-05] MEDS: NICOTINE 21 MG (NICODERM) PATCH TD SCH (08:06)
[2021-02-05] MEDS: ASPIRIN E.C. 81 MG (ECOTRIN) TAB PO SCH (08:06)
[2021-02-05] MEDS: guaiFENesin (MUCINEX) 600 MG TAB PO SCH ×2 (08:07→21:06)
[2021-02-05] MEDS: SERTRALINE 100 MG (ZOLOFT) TAB PO SCH (08:07)
[2021-02-05] MEDS: ENALAPRIL 2.5 MG (VASOTEC) TAB PO SCH (08:07)
[2021-02-05] MEDS: LORATADINE (CLARITIN) 10 MG TAB PO SCH (08:08)
[2021-02-05] MEDS: FAMOTIDINE 20 MG (PEPCID) TABLET PO SCH ×2 (08:08→21:06)
[2021-02-05] MEDS: ENOXAPARIN 40 MG/0.4 ML (LOVENOX) SYR SC SCH (08:08)
[2021-02-05] MEDS: polyethylene glycoL POWDER 17 GM (MIRALAX) PACK PO SCH ×2 (08:08→19:40)
[2021-02-05] MEDS: NICOTINE PATCH REMOVAL TP SCH (08:08)
[2021-02-05] MEDS: SENNA W/DOCUSATE (SENOKOT S) TABLET PO SCH ×2 (08:09→19:40)
[2021-02-05] MEDS: RT--FLUTICASONE/SALMETEROL 232-14 (AIRDUO RespiCLICK) IH SCH ×3 (08:55→20:36)
[2021-02-05] MEDS: RT-ALBUTEROL/IPRATROPIUM 3 ML (DUONEB) VIAL INH SCH ×4 (08:55→20:35)
[2021-02-05 12:27] VITALS: BP 149/85
[2021-02-05] MEDS ORDERED: aCETylcysteine 20% (MUCOMYST) 30ML SOLN VIAL INH SCH (12:30)
[2021-02-05] MEDS: aCETylcysteine 20% (MUCOMYST) 30ML SOLN VIAL INH SCH ×2 (15:30→22:55)
[2021-02-05 15:58] VITALS: BP 160/90
[2021-02-05 19:11] VITALS: BP 136/82
[2021-02-05] MEDS: MONTELUKAST 10 MG (SINGULAIR) TAB PO SCH (21:05)
[2021-02-05] MEDS: MELATONIN 3 MG TABLET PO PRN (21:06)
[2021-02-06] VITALS: BP 154/88
[2021-02-06 04:00] VITALS: BP 132/78
--- NOTE | 2021-02-06 06:39 | Progress Note - Hospitalist ---
Subjective HPI/CC On Admission Date Seen by Provider: Feb 06, 2021 Time Seen by Provider: 12:30 Chief complaint: Wheezing shortness of breath History of present illness: This is a 60-year-old white female with a history of COPD oxygen dependent but noncompliant who continues to smoke who presented to the ER with shortness of breath. Patient has been vaccinated against Covid. Covid swab was negative. Chest x-ray and D-dimer were negative. Patient feels much better but having a lot of anxiety and labile emotions. Pulmonary consultation recommended compliance with oxygen supplementation. He would like a pulmonary function test as an outpatient in pulmonary clinic. Subjective/Events-last exam Patient doing really well Crackles and wheezes still noted on exam Mucomyst really helps No pain is reported Patient really has severe COPD Review of Systems Pulmonary: Dyspnea, Other Objective Exam Vital Signs Vital Signs Date Time Temp Pulse Resp B/P (MAP) Pulse Ox O2 Delivery O2 Flow Rate FiO2 02/06/21 19:27 36.8 82 18 139/81 (100) 93 Nasal Cannula 2.00 02/03/21 02:03 80 Capillary Refill : Less Than 3 Seconds General Appearance: No Apparent Distress, WD/WN, Chronically ill Respiratory: No Accessory Muscle Use, No Respiratory Distress, Decreased Breath Sounds, Rales, Wheezing Cardiovascular: Regular Rate, Rhythm Neurologic/Psychiatric: Alert, Oriented x3 Results/Procedures Lab Laboratory Tests 02/06/21 05:16 02/06/21 07:00 Patient resulted labs reviewed. Assessment/Plan Assessment and Plan Assess & Plan/Chief Complaint Assessment: Acute exacerbation of COPD Smoker Plan: IV steroids Oxygen Mucomyst 02/06/2021: Supportive care IV steroids Severe COPD Critical Care Critically Ill Patient ANTWON SHELLEY DO Feb 06, 2021 06:39
[2021-02-06] MEDS: KCL 10 MEQ TAB (MICRO K) PO SCH (06:42)
[2021-02-06] MEDS: methylPREDNISolone 40 MG/ML (Solu-MEDROL) VIAL IV SCH ×3 (06:42→21:08)
[2021-02-06 06:43] LABS: ALBUMIN 3.9 GM/DL (3.2-4.5); POTASSIUM 4.3 MMOL/L (3.6-5.0)
[2021-02-06] MEDS: HYDROcodone/APAP 5 MG/325 MG (LORTAB) TAB PO PRN ×3 (06:45→21:09)
[2021-02-06 06:46] LABS: TOTAL PROTEIN 6.5 GM/DL (6.4-8.2)
[2021-02-06 06:48] LABS: BILIRUBIN,TOTAL 0.4 MG/DL (0.1-1.0)
[2021-02-06 06:49] LABS: CREATININE SERUM 0.79 MG/DL (0.60-1.30)
[2021-02-06] MEDS: RT-ALBUTEROL/IPRATROPIUM 3 ML (DUONEB) VIAL INH SCH ×4 (07:00→21:42)
[2021-02-06] MEDS: aCETylcysteine 20% (MUCOMYST) 30ML SOLN VIAL INH SCH ×3 (07:13→21:42)
[2021-02-06] MEDS: RT--FLUTICASONE/SALMETEROL 232-14 (AIRDUO RespiCLICK) IH SCH ×2 (07:15→19:21)
[2021-02-06 07:33] LABS: BASOPHILS % (AUTO) 0 % (0-10); EOSINOPHILS % (AUTO) 0 % (0-10); HEMATOCRIT 46 % (35-52); HEMOGLOBIN 15.7 g/dL (11.5-16.0); LYMPHOCYTES % (AUTO) 15 % (12-44); MEAN CORPUSCULAR HEMOGLOBIN 33 pg (25-34); MEAN CORPUSCULAR HGB CONC 34 g/dL (32-36); MEAN CORPUSCULAR VOLUME 95 fL (80-99); MEAN PLATELET VOLUME 10.3 fL (9.0-12.2); MONOCYTES # (AUTO) 0.5 10^3/uL (0.0-1.0); MONOCYTES % (AUTO) 7 % (0-12); NEUTROPHILS # (AUTO) 5.5 10^3/uL (1.8-7.8); NEUTROPHILS % (AUTO) 78 % (42-75); PLATELET COUNT 120 10^3/uL (130-400)
[2021-02-06 07:45] VITALS: BP 151/97
[2021-02-06] MEDS: ENOXAPARIN 40 MG/0.4 ML (LOVENOX) SYR SC SCH (08:32)
[2021-02-06] MEDS: SERTRALINE 100 MG (ZOLOFT) TAB PO SCH (08:32)
[2021-02-06] MEDS: guaiFENesin (MUCINEX) 600 MG TAB PO SCH ×2 (08:32→21:05)
[2021-02-06] MEDS: NICOTINE 21 MG (NICODERM) PATCH TD SCH (08:32)
[2021-02-06] MEDS: LORATADINE (CLARITIN) 10 MG TAB PO SCH (08:32)
[2021-02-06] MEDS: ENALAPRIL 2.5 MG (VASOTEC) TAB PO SCH (08:32)
[2021-02-06] MEDS: polyethylene glycoL POWDER 17 GM (MIRALAX) PACK PO SCH ×2 (08:33→19:30)
[2021-02-06] MEDS: SENNA W/DOCUSATE (SENOKOT S) TABLET PO SCH ×2 (08:33→19:30)
[2021-02-06] MEDS: ASPIRIN E.C. 81 MG (ECOTRIN) TAB PO SCH (08:33)
[2021-02-06] MEDS: FAMOTIDINE 20 MG (PEPCID) TABLET PO SCH ×2 (08:33→21:05)
[2021-02-06] MEDS: NICOTINE PATCH REMOVAL TP SCH (08:33)
[2021-02-06] MEDS: ALPRAZolam 0.25 MG (XANAX) TAB PO PRN ×2 (10:47→18:42)
[2021-02-06 12:12] VITALS: BP 144/80
[2021-02-06 15:11] VITALS: BP 159/87
[2021-02-06 19:27] VITALS: BP 139/81
[2021-02-06] MEDS: MONTELUKAST 10 MG (SINGULAIR) TAB PO SCH (21:04)
[2021-02-07] VITALS: BP 146/87
[2021-02-07 04:01] VITALS: BP 172/78
[2021-02-07 05:35] LABS: EOSINOPHILS % (AUTO) 0 % (0-10); HEMOGLOBIN 14.9 g/dL (11.5-16.0)
[2021-02-07 05:37] LABS: BASOPHILS % (AUTO) 0 % (0-10); HEMATOCRIT 44 % (35-52); LYMPHOCYTES # (AUTO) 0.6 10^3/uL (1.0-4.0); LYMPHOCYTES % (AUTO) 11 % (12-44); MEAN CORPUSCULAR HEMOGLOBIN 32 pg (25-34); MEAN CORPUSCULAR HGB CONC 34 g/dL (32-36); MEAN CORPUSCULAR VOLUME 95 fL (80-99); MEAN PLATELET VOLUME 10.5 fL (9.0-12.2); MONOCYTES # (AUTO) 0.4 10^3/uL (0.0-1.0); MONOCYTES % (AUTO) 7 % (0-12); NEUTROPHILS # (AUTO) 4.3 10^3/uL (1.8-7.8); NEUTROPHILS % (AUTO) 81 % (42-75); PLATELET COUNT 106 10^3/uL (130-400); WHITE BLOOD COUNT 5.3 10^3/uL (4.3-11.0)
[2021-02-07 05:56] LABS: ALBUMIN 3.8 GM/DL (3.2-4.5); BILIRUBIN,TOTAL 0.5 MG/DL (0.1-1.0); CALCIUM 9.1 MG/DL (8.5-10.1); CREATININE SERUM 0.74 MG/DL (0.60-1.30); POTASSIUM 4.2 MMOL/L (3.6-5.0); TOTAL PROTEIN 6.3 GM/DL (6.4-8.2)
[2021-02-07] MEDS: HYDROcodone/APAP 5 MG/325 MG (LORTAB) TAB PO PRN ×2 (06:08→11:46)
[2021-02-07] MEDS: methylPREDNISolone 40 MG/ML (Solu-MEDROL) VIAL IV SCH (06:08)
[2021-02-07] MEDS: KCL 10 MEQ TAB (MICRO K) PO SCH (06:09)
[2021-02-07] MEDS: ASPIRIN E.C. 81 MG (ECOTRIN) TAB PO SCH (07:50)
[2021-02-07] MEDS: FAMOTIDINE 20 MG (PEPCID) TABLET PO SCH (07:50)
[2021-02-07] MEDS: SERTRALINE 100 MG (ZOLOFT) TAB PO SCH (07:50)
[2021-02-07] MEDS: guaiFENesin (MUCINEX) 600 MG TAB PO SCH (07:51)
[2021-02-07] MEDS: LORATADINE (CLARITIN) 10 MG TAB PO SCH (07:51)
[2021-02-07] MEDS: ENALAPRIL 2.5 MG (VASOTEC) TAB PO SCH (07:51)
[2021-02-07] MEDS: ENOXAPARIN 40 MG/0.4 ML (LOVENOX) SYR SC SCH (07:52)
[2021-02-07] MEDS: NICOTINE 21 MG (NICODERM) PATCH TD SCH (07:52)
[2021-02-07] MEDS: SENNA W/DOCUSATE (SENOKOT S) TABLET PO SCH (07:52)
[2021-02-07] MEDS: polyethylene glycoL POWDER 17 GM (MIRALAX) PACK PO SCH (07:53)
[2021-02-07] MEDS: NICOTINE PATCH REMOVAL TP SCH (07:53)
[2021-02-07] MEDS: aCETylcysteine 20% (MUCOMYST) 30ML SOLN VIAL INH SCH (07:55)
[2021-02-07 08:00] VITALS: BP 133/98
[2021-02-07] MEDS: RT--FLUTICASONE/SALMETEROL 232-14 (AIRDUO RespiCLICK) IH SCH (08:07)
[2021-02-07] MEDS: RT-ALBUTEROL/IPRATROPIUM 3 ML (DUONEB) VIAL INH SCH ×2 (08:07→11:17)
[2021-02-07 09:02] VITALS: BP 156/73
[2021-02-07] MEDS: ALPRAZolam 0.25 MG (XANAX) TAB PO PRN (09:02)
--- NOTE | 2021-02-07 11:30 | Discharge Summary ---
Diagnosis/Chief Complaint Date of Admission Feb 02, 2021 at 22:13 Date of Discharge 02/07/21 Admission Diagnosis Admission Diagnosis Acute COPD Exacerbation Hypoxia Tobacco Abuse Discharge Diagnosis See above Discharge Summary-Simple/Stand Consultations Discharge Physical Examination Allergies: Coded Allergies: No Known Drug Allergies (Unverified , 08/22/16) Vitals & I&Os Vital Sign - Last 12Hours Date Time Temp Pulse Resp B/P (MAP) Pulse Ox O2 Delivery O2 Flow Rate FiO2 02/07/21 11:17 96 Nasal Cannula 1.00 02/07/21 09:02 156/73 (100) 02/07/21 08:00 36.6 77 18 02/03/21 02:03 80 Intake and Output 02/07/21 00:00 Intake Total 1280 ml Balance 1280 ml General Appearance: Alert, Oriented X3, Cooperative, No Acute Distress Respiratory: Other (Right lower lobe Rhonchi, end exp wheezing, normal work of breathing) Cardiovascular: Regular Rate, No Murmurs Abdominal: Normal Bowel Sounds, Soft, No Tenderness, No Masses Extremities: No Edema, No Tenderness/Swelling Skin: No Rashes Neuro: Normal Speech, Strength at 5/5 X4 Ext, Sensation Intact, Cranial Nerves 3-12 NL, Other (Up walking Ad zoë) Psych/Mental Status: Mental Status NL, Mood NL Hospital Course Was the Problem List Reviewed?: Yes See final discharge diagnosis. Discussion & Recommendations 60 yo with known COPD with acute exacerbation. States that she is suppose to wear oxygen but does not wear oxygen at home. Continues to smoke at home but is very motivated to quit. Will be discharged on steroid taper. Discharge Condition at discharge Stable Instructions to patient/family Please see electronic discharge instructions given to patient. Discharge Medications Reviewed and agree with Discharge Medication list on patient's Discharge Instruction sheet Copy Copies To 1: LUDIN GALINDO MD, HOLLY R MD Feb 07, 2021 11:30
[2021-02-07] MEDS ORDERED: CYCL10TA9 PO (11:34)
[2021-02-07] MEDS ORDERED: PRD20T PO (11:34)
--- NOTE | 2021-02-07 11:35 | Discharge Summary ---
Discharge [facility] Reconcile Patient Problems Problems Reviewed?: Yes Discharge Medications New, Converted or Re-Newed RX: Transmitted to Pharmacy New Medications: Cyclobenzaprine HCl (Cyclobenzaprine HCl) 10 Mg Tablet 10 MG PO qhs, #10 TAB Prednisone (Prednisone) 20 Mg Tab 0 PO DAILY, #26 TAB Take 3 tabs x 4 days then Take 2 tabs x 4 days then Take 1 tab x 4 days then 1/2 tab x 4 days Continued Medications: Albuterol Sulfate (Albuterol Sulfate) 2.5 Mg/3 Ml Vial.neb 2.5 MG NEB Q4H PRN for SHORTNESS OF BREATH, EA Albuterol Sulfate (Proair Hfa) 1 Puff Puff 2 PUFF IH Q4H PRN for SHORTNESS OF BREATH, EA Aspirin (Aspirin EC) 81 Mg Tablet.dr 81 MG PO DAILY, TAB Enalapril Maleate (Enalapril Maleate) 2.5 Mg Tablet 2.5 MG PO DAILY, TAB Fluticasone/Salmeterol (Advair 500-50 Diskus) 1 Each Blst.w.dev 1 EACH IH BID, EA Guaifenesin (Mucinex) 1,200 Mg Tab.er.12h 1200 MG PO BID, TAB Loratadine (Loratadine) 10 Mg Tablet 10 MG PO DAILY, TAB Metoprolol Succinate (Metoprolol Succinate) 25 Mg Tab.er.24h 12.5 MG PO DAILY, TAB TAKES OF A 25MG Montelukast Sodium (Montelukast Sodium) 10 Mg Tablet 10 MG PO HS, TAB Potassium Chloride (K-Tab ER) 10 Meq Tablet.er 10 MEQ PO DAILY, TAB Sertraline HCl (Sertraline HCl) 100 Mg Tablet 150 MG PO DAILY, TAB TAKES 1 & (100MG) TABS Tiotropium [place] (Spiriva) 1 Inh Aerp 2 INH IH HS, EA Discontinued Medications: Cefdinir (Cefdinir) 300 Mg Capsule 300 MG PO BID, CAP FILLED 02-01-2021 #14/7 DAY SUPPLY Patient Instructions Goal/Follow Up Appt: F.u with Dr Galindo in 1 week Patient Instructions: - Make sure to complete your steroid taper - Discussed the importance of tobacco cessation Activity & Diet Discharge Diet: Cardiac Diet Activity as Tolerated: Yes Copy Copies To 1: LUDIN GALINDO MD, HOLLY R MD Feb 07, 2021 11:35
[2021-02-07 14:42] VITALS: BP 156/73
--- NOTE | 2021-02-07 15:17 | Physician Query Clarification ---
Physician Query-General Query to Physician: Clinical Validation Clarification DrHubert : Supriya Yates Sepsis, has only been documented once in the medical record. After study, do you consider Sepsis a clinically valid diagnosis? If not clinically valid, please document "Sepsis, ruled out" on the progress notes and/or discharge summary. 1. No, Sepsis is not clinically valid/Sepsis was ruled out 2. Yes, Sepsis is a clinically valid diagnosis 3. Other, with explanation of the clinical findings 4. Clinically undetermined, no explanation for the clinical findings Additional information: Admission VS/Labs: HR 102, RR 26, BP 154/95, SpO2 97% sat on O2, 79% on room air, WBC 8.4, lactic Acid, not drawn, 2 Liters LR, IV solumedrol, No ABX given Please remember a lack of response to the above will prompt a phone page by CDI/coding staff. In responding to this query, please exercise your independent professional judgment. The purpose of this communication is to more accurately reflect the complexity of your patients condition. The fact that a question is asked does not imply that any particular answer is desired or expected. Thank you for timely response to this clarification. Caryl Reed MSN, RN Clinical Cartridge Gauger PH [email or web address] PHYSICIAN RESPONSE: Based on the clinical findings in the record, please respond to the query above on this document as an addendum. Physician Response: Physician Response 1 If you have questions please contact: Pipe Joints Supervisor: Ext: Thank you for your time and cooperation. Clinical Cartridge Gauger/Pipe Joints Supervisor This is a permanent part of the medical record CARYL REED Feb 07, 2021 15:17 ANTWON YATES DO Feb 07, 2021 20:59
--- NOTE | 2021-02-07 15:30 | Physician Query Clarification ---
Physician Query-General Query to Physician: The medical record reflects the following clinical scenario: The patient, in the setting of History/Risk factors, Hx; COPD- on vent to mask at night. long smoking history, History of using 02 only at night Clinical Findings Increasing SOB for several days POA, SpO2 79% on room air, 15L 02 on arrival then was able to maintain sats on 4L gradually decreased to 1L Treatment Continuous Supplemental 02, Duonebs, IV Steroids', Question: Acute on Chronic Hypoxic Respiratory Failure was documented on the H and P but not continued in the progress notes. Do you agree with the impression of Acute on Chronic Hypoxic Respiratory failure as the present on admission and the reason for admission? 1. Yes; will document Acute on Chronic Hypoxic Respiratory Failure, present on admission and the primary reason for admission in the Progress Notes/Discharge summary 2. No; will continue current documentation in the Progress Notes/Discharge summary. 3. Other; will document explanation of clinical findings 4. Clinically undetermined; no explanation for clinical findings Please clarify and document your clinical opinion in the Progress Notes and Discharge Summary including the definitive and/or presumptive diagnosis, (suspected or probable), related to the above clinical findings. Please include clinical findings supporting your diagnosis. In responding to this query, please exercise your independent professional judgment. The purpose of this communication is to more accurately reflect the complexity of your patients condition. The fact that a question is asked does not imply that any particular answer is desired or expected. Please remember a lack of response to the above will prompt a phone page by CDI/coding staff Thank you for timely response to this clarification. Caryl Katz MSN, RN Clinical Hospital Security Officer [phone] [email or web address] PHYSICIAN RESPONSE: Based on the clinical findings in the record, please respond to the query above on this document as an addendum. Physician Response: Physician Response 1 If you have questions please contact: Person Investigator: Ext: Thank you for your time and cooperation. Clinical Hospital Security Officer/Person Investigator This is a permanent part of the medical record CARYL KATZ Feb 07, 2021 15:30 ANTWON SHELLEY DO Feb 07, 2021 20:59
== END 2021-02-07 14:41 | disposition home or self-care (01) | DRG 189 ==
LOC: EDUNIT# 20:46 → ER 20:48 → CSD 22:13 → 4TH 02-03 14:50
PROVIDERS: ADMIT Internal Medicine; ATTEND Family Medicine
DX: J96.21 Acute and chronic respiratory failure with hypoxia (principal); J44.1 Chronic obstructive pulmonary disease with (acute) exacerbation; I42.9 Cardiomyopathy, unspecified; I11.0 Hypertensive heart disease with heart failure; I50.9 Heart failure, unspecified; F17.210 Nicotine dependence, cigarettes, uncomplicated; F12.90 Cannabis use, unspecified, uncomplicated; F41.9 Anxiety disorder, unspecified; Z20.822 Contact with and (suspected) exposure to COVID-19; F32.9 Major depressive disorder, single episode, unspecified; F39 Unspecified mood [affective] disorder; M17.0 Bilateral primary osteoarthritis of knee; M19.042 Primary osteoarthritis, left hand; M19.041 Primary osteoarthritis, right hand; M19.012 Primary osteoarthritis, left shoulder; M19.011 Primary osteoarthritis, right shoulder; K21.9 Gastro-esophageal reflux disease without esophagitis; Z91.19 Patient's noncompliance with other medical treatment and regimen; Z79.82 Long term (current) use of aspirin; Z82.61 Family history of arthritis; Z82.49 Family history of ischemic heart disease and other diseases of the circulatory system
CPT/HCPCS: 36415; 71045; 80048; 80053; 82805; 83880; 84145; 85007; 85025; 85027; 85379; 87636; 93005; 94640; 94664; 94760; 94761; 96374

== ENCOUNTER → 2021-03-11 | Outpatient (CLI) | payer MEDICARE ==
[~2021-03-11] MED LIST changes: +ALBU2.5V4 NEB; +ASPI-1238 PO; +CEFD300C3 PO; +CYCL10TA9 PO; +FLUT1DIS27 IH; +GUAI120013 PO; +LORA10TA7 PO; +MONT10TA32 PO; +POTA10TA PO; +SERT-414 PO; +TIOT18CA2 IH
== END ==
LOC: CARD 10:00
PROVIDERS: ATTEND Internal Medicine Cardiovascular Disease
DX: I51.7 Cardiomegaly (principal); I51.81 Takotsubo syndrome
CPT/HCPCS: 93306

== ENCOUNTER 2021-03-23 09:47 | Emergency (ER) | payer MEDICARE ==
[~2021-03-23] VITALS: Ht 165 cm; Wt 67.6 kg
--- NOTE | 2021-03-23 10:28 | ED Respiratory ---
General Chief Complaint: Respiratory Problems Stated Complaint: SOB Nursing Triage Note: PT STATES COPD SOB FOR 1 DAY, RECENT ECHO DONE HERE A WEEK AGO . HX OF SMOKING, ON HOME O2, NO O2 ON ARRIVAL. Source: patient, family Exam Limitations: no limitations History of Present Illness Date Seen by Provider: Mar 23, 2021 Time Seen by Provider: 10:18 Initial Comments Patient is a 60-year-old female who presents to the emergency department with a chief complaint of shortness of breath. Patient states that she started getting more short of breath over the last 2 days. She states that she has some chronic pain issues and is having a hard time getting oral medications to alleviate her pain and smoked a little marijuana on Sunday. She states she started having increasing shortness of breath since that time. She does have a history of known COPD is on oxygen at night only. She does not have portable oxygen. On presentation to the room the patient is noted to be in the mid 70s for oxygen saturations on room air. She has obvious increased work of breathing, she is quite tachypneic. She denies any chest pain, tightness or pressure. She has no history of coronary artery disease. She did recently have an echo, ordered by Dr. Rivera, her follow-up is not until the week of the . She denies any recent fevers, chills, productive cough or upper respiratory congestion. She is not nauseated. No bowel or bladder problems. She has been using her inhalers as prescribed at her last puff of her inhaler was approximately 2 hours prior to arrival. She denies any personal or family history of blood clots. No recent prolonged immobility. Former smoker. All other review of systems reviewed and negative except as stated Timing/Duration: other (2 says) Severity: severe Prior Episodes/Possible Cause: smoke exposure Modifying Factors: Improves With Albuterol Inhaler Associated Symptoms: cough, shortness of breath Allergies and Home Medications Allergies Coded Allergies: No Known Drug Allergies (Unverified , 08/22/16) Patient Home Medication List Home Medication List Reviewed: Yes Albuterol Sulfate (Albuterol Sulfate) 2.5 Mg/3 Ml Vial.neb, 2.5 MG NEB Q4H PRN for SHORTNESS OF BREATH, (Reported) Entered as Reported by: KANE CRISOSTOMO on 02/03/21 1150 Albuterol Sulfate (Proair Hfa) 1 Puff Puff, 2 PUFF IH Q4H PRN for SHORTNESS OF BREATH, (Reported) Entered as Reported by: KANE CRISOSTOMO on 02/03/21 115 Aspirin (Aspirin EC) 81 Mg Tablet.dr, 81 MG PO DAILY, (Reported) Entered as Reported by: KANE CRISOSTOMO on 02/03/21 115 Cyclobenzaprine HCl (Cyclobenzaprine HCl) 10 Mg Tablet, 10 MG PO qhs Prescribed by: NIRU LENNON on 02/07/21 113 Enalapril Maleate (Enalapril Maleate) 2.5 Mg Tablet, 2.5 MG PO DAILY, (Reported) Entered as Reported by: KANE CRISOSTOMO on 02/03/21 115 Fluticasone/Salmeterol (Advair 500-50 Diskus) 1 Each Blst.w.dev, 1 EACH IH BID, (Reported) Entered as Reported by: KANE CRISOSTOMO on 02/03/21 115 Guaifenesin (Mucinex) 1,200 Mg Tab.er.12h, 1,200 MG PO BID, (Reported) Entered as Reported by: KANE CRISOSTOMO on 02/03/21 115 Loratadine (Loratadine) 10 Mg Tablet, 10 MG PO DAILY, (Reported) Entered as Reported by: KANE CRISOSTOMO on 02/03/21 115 Metoprolol Succinate (Metoprolol Succinate) 25 Mg Tab.er.24h, 12.5 MG PO DAILY, (Reported) Entered as Reported by: KANE CRISOSTOMO on 02/03/21 115 Montelukast Sodium (Montelukast Sodium) 10 Mg Tablet, 10 MG PO HS, (Reported) Entered as Reported by: KANE CRISOSTOMO on 02/03/21 115 Potassium Chloride (K-Tab ER) 10 Meq Tablet.er, 10 MEQ PO DAILY, (Reported) Entered as Reported by: KANE CRISOSTOMO on 02/03/21 115 Prednisone (Prednisone) 20 Mg Tab, 0 PO DAILY Prescribed by: NIRU LENNON on 02/07/21 1134 Sertraline HCl (Sertraline HCl) 100 Mg Tablet, 150 MG PO DAILY, (Reported) Entered as Reported by: KANE CRISOSTOMO on 02/03/21 1150 Tiotropium [place] (Spiriva) 1 Inh Aerp, 2 INH IH HS, (Reported) Entered as Reported by: KANE CRISOSTOMO on 02/03/21 1150 Review of Systems Review of Systems Constitutional: see HPI EENTM: no symptoms reported Respiratory: cough, short of breath Cardiovascular: no symptoms reported Gastrointestinal: no symptoms reported Genitourinary: no symptoms reported : No Musculoskeletal: no symptoms reported Skin: no symptoms reported All Other Systems Reviewed Negative Unless Noted: Yes Past Abntpzs-Ewzxdx-Lpgnqo Hx Immunizations Up To Date Tetanus Booster (TDap): Less than 5yrs PED Vaccines UTD: Yes Seasonal Allergies Seasonal Allergies: Yes Past Medical History Surgeries: Yes Section, Hysterectomy, Orthopedic Respiratory: Yes COPD Currently Using CPAP: Yes Currently Using BIPAP: No Cardiac: Yes (nonischemic cardiomyopathy) Hypertension Neurological: No 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 Disorders: No Female 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 Disorders: Denies [employer]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 Sexually Transmitted Disease: No HIV/AIDS: No Genitourinary: Yes Kidney Stones Gastrointestinal: Yes Hepatitis Musculoskeletal: Yes Arthritis Endocrine: No HEENT: No Loss of Vision: Bilateral Hearing Impairment: Denies Psychosocial: Yes (mood disorder) Anxiety, Depression Eczema Adverse Reaction/Blood Tranf: No Family Medical History Arthritis 19 FATHER Asthma 19 MOTHER Cardiovascular disease 19 FATHER Chest pain 19 FATHER Congestive heart failure 19 FATHER Diabetes mellitus 19 MOTHER Family history: Arthritis 19 FATHER Family history: Asthma 19 MOTHER Family history: Cardiovascular disease 19 FATHER Family history: Diabetes mellitus 19 MOTHER Family history: Hypertension 19 FATHER 19 MOTHER Heart disease 19 FATHER History of - respiratory disease 19 MOTHER Visual impairment 19 MOTHER No Family History of: AIDS Abdominal aortic aneurysm Abdominal aortic aneurysm Dale's disease Allen's disease Alcoholism Alcoholism Alzheimer's disease Aphasia Aphasia Cancer Cancer of colon Cataract Congenital heart disease Cystic fibrosis Dementia Dysphagia Family history: Allergy Family history: Alzheimer's disease Family history: Breast disease Family history: Coronary thrombosis Family history: Gastrointestinal disease Family history: Glaucoma Family history: Osteoporosis Family history: Thyroid disorder Fibrocystic disease of breast Gastroenteritis Glaucoma Headache Hearing loss Hereditary disease History of - anemia History of - disorder History of drug abuse Human immunodeficiency virus (HIV) seropositivity Hypercholesterolemia Infertile Kidney disease Malignant neoplasm of lung Myocardial infarction Parkinson's disease Psychotic disorder Seizure disorder Stroke Tuberculosis Diabetes Physical Exam Vital Signs - First Documented 03/23/21 03/23/21 10:11 10:33 Temp 35.7 Pulse 100 Resp 24 B/P (MAP) 164/137 (146) Pulse Ox 90 O2 Delivery Nasal Cannula O2 Flow Rate 1.00 Capillary Refill : Height: 5'7.00" Weight: 155lbs. 3.0oz. 70.788028px; 24.00 BMI Method:Stated General Appearance: WD/WN, moderate distress Eyes: Bilateral Eye Normal Inspection, Bilateral Eye PERRL, Bilateral Eye EOMI HEENT: PERRL/EOMI Neck: normal inspection Respiratory: chest non-tender, decreased breath sounds, accessory muscle use, other (diminished BS throughout, difficult to auscultate any air movement, almost "silent chest" she does have the tiniest squeak of a wheeze right anterior lung yost; tachypneic; "belly breathing") Cardiovascular: regular rate, rhythm, no murmur Gastrointestinal: normal bowel sounds, non tender, soft Extremities: normal range of motion, non-tender, normal inspection, no pedal edema, no calf tenderness Neurologic/Psychiatric: no motor/sensory deficits, alert, normal mood/affect, oriented x 3, other (anxious) Skin: normal color, warm/dry Progress/Results/Core Measures Suspected Sepsis SIRS Temperature: Pulse: 100 Respiratory Rate: 24 Laboratory Tests 03/23/21 10:45: White Blood Count 9.2 Blood Pressure 164 /137 Mean: 146 Laboratory Tests 03/23/21 10:45: Creatinine 0.87, Platelet Count 135 Results/Orders Lab Results Laboratory Tests Test 03/23/21 10:45 Range/Units White Blood Count 9.2 4.3-11.0 10^3/uL Red Blood Count 5.15 H 3.80-5.11 10^6/uL Hemoglobin 16.8 H 11.5-16.0 g/dL Hematocrit 48 35-52 % Mean Corpuscular Volume 94 80-99 fL Mean Corpuscular Hemoglobin 33 25-34 pg Mean Corpuscular Hemoglobin Concent 35 32-36 g/dL Red Cell Distribution Width 15.4 H 10.0-14.5 % Platelet Count 135 130-400 10^3/uL Mean Platelet Volume 9.8 9.0-12.2 fL Immature Granulocyte % (Auto) 0 % Neutrophils (%) (Auto) 70 42-75 % Lymphocytes (%) (Auto) 16 12-44 % Monocytes (%) (Auto) 7 0-12 % Eosinophils (%) (Auto) 6 0-10 % Basophils (%) (Auto) 1 0-10 % Neutrophils # (Auto) 6.5 1.8-7.8 10^3/uL Lymphocytes # (Auto) 1.5 1.0-4.0 10^3/uL Monocytes # (Auto) 0.6 0.0-1.0 10^3/uL Eosinophils # (Auto) 0.6 H 0.0-0.3 10^3/uL Basophils # (Auto) 0.1 0.0-0.1 10^3/uL Immature Granulocyte # (Auto) 0.0 0.0-0.1 10^3/uL Percent Immature Platelet Fraction 1.8 0.0-7.6 % Sodium Level 141 135-145 MMOL/L Potassium Level 4.3 3.6-5.0 MMOL/L Chloride Level 108 H 98-107 MMOL/L Carbon Dioxide Level 21 21-32 MMOL/L Anion Gap 12 5-14 MMOL/L Blood Urea Nitrogen 16 7-18 MG/DL Creatinine 0.87 0.60-1.30 MG/DL Estimat Glomerular Filtration Rate 66 BUN/Creatinine Ratio 18 Glucose Level 134 H 70-105 MG/DL Calcium Level 9.3 8.5-10.1 MG/DL My Orders Orders - MICHELET SANDRA MD Albuterol Pre-Mix Nebs (Rt) (Proventil (03/23/21 10:30) Svn Small Volume Nebulizer (03/23/21 10:27) Ed Iv/Invasive Line Start (03/23/21 10:27) Cbc With Automated Diff (03/23/21 10:27) Basic Metabolic Panel (03/23/21 10:27) Chest 1 View, Ap/Pa Only (03/23/21 10:27) Albuterol Pre-Mix Nebs (Rt) (Proventil (03/23/21 10:36) Methylprednisolone Sod Succ (Solu-Medrol (03/23/21 11:45) Medications Given in ED Current Medications Medications Dose Ordered Sig/Alphonse Route Start Time Stop Time Status Last Admin Dose Admin Albuterol Sulfate 5 mg ONCE ONCE INH 03/23/21 10:30 03/23/21 10:31 DC 03/23/21 10:33 5 MG Methylprednisolone Sodium Succinate 125 mg ONCE ONCE IVP 03/23/21 11:45 03/23/21 11:46 DC 03/23/21 12:40 125 MG Vital Signs/I&O 03/23/21 03/23/21 03/23/21 03/23/21 10:11 10:33 10:39 10:49 Temp 35.7 Pulse 100 Resp 24 B/P (MAP) 164/137 (146) Pulse Ox 90 96 98 O2 Delivery Nasal Cannula Nasal Cannula Nasal Cannula Nasal Cannula O2 Flow Rate 1.00 2.00 2.00 2.00 Capillary Refill : Blood Pressure Mean: 146 Progress Note #1: Time: 11:34 Progress Note Patient reevaluated, she is definitely moving more air now I hear more audible expiratory wheezes. On 2 L she is 92 to 93%. She is definitely improved in her overall work of breathing. She states that she feels better but still has some chest tightness when she breathes. Will call the local DME in [place] and see if she can get some portable oxygen. She is also requesting a round of steroids. Progress Note #2: Time: 12:45 Progress Note Attempted to get the patient put on continuous oxygen with a portable canister for home. I called "your [employer] and Ethan they stated to me that she would have to have continuous oxygen ordered by her primary and through her original home medical equipment agency. I subsequently called [facility] medical and they cannot change her oxygen status from the ER setting. They would require a stable medical state meaning a clinic setting such as pulmonology or her primary care office to write the order that demonstrates the need for continuous oxygen management. I have communicated all of this with the patient and she is going to call [facility] and see if she can get into see one of their practitioners to get an order for continuous oxygen. She is comfortable with going home as she lives only a short distance away off of her oxygen and states she will get right on it when she gets home. I counseled her that she may drop fairly significantly on the right home and she still desires discharge. I alternatively offered admission and she declines admission at this time. On 2 L she is satting 94% currently. She demonstrates no increased work of breathing. Labs and x-ray are within normal limits. Blood pressure is good she is not tachycardic, no concerns for sepsis/pneumonia. I do not believe that she needs admission for the COPD exacerbation. We will send some prednisone to [facility] pharmacy for her. She verbalized understanding, she is comfortable with this plan of care, all questions are sought and answered. ECG Initial ECG Impression Date: Mar 23, 2021 Initial ECG Impression Time: 10:16 Initial ECG Rate: 93 Initial ECG Rhythm: Normal Sinus Initial ECG Intervals LA interval 175 QRS 100 QTc 484 Initial ECG Impression: Nonspecific Changes Diagnostic Imaging Diagonstic Imaging: Xray Plain Films/CT/US/NM/MRI: chest Comments NAME: HANK BATISTA [facility] REC#: [id number] PT STATUS: REG ER : 1960 PHYSICIAN: MICHELET SANDRA MD ADMIT DATE: 03/23/21/ER Draft Date of Exam:03/23/21 CHEST 1 VIEW, AP/PA ONLY EXAMINATION: Chest 1 view HISTORY: SOB/COPD acute exacerbation COMPARISON: 01/31/2021 FINDINGS: Heart size and pulmonary vasculature are normal. The lungs are clear without consolidation, pleural effusion, or pneumothorax. The osseous structures are intact. IMPRESSION: 1. No acute radiographic abnormality in the chest. Dictated on workstation # [id number] Dict: 03/23/21 1120 Trans: 03/23/21 1124 [facility] [id number] Interpreted by: MONTY GO DO Electronically signed by: Critical Care Note Critical Care Start Time: 10:18 Stop Time: 11:00 Total Time (minutes) 30 minutes critical care time in the evaluation and management of this patient in acute respiratory distress with hypoxemia. Time includes initial evaluation and management of the patient, supplemental oxygen, review of medical records, review and interpretation of laboratory studies and imaging studies. Departure Impression Primary Impression: COPD with exacerbation Additional Impression: Hypoxia Disposition: 01 HOME, SELF-CARE Condition: Improved Departure-Patient Inst. Decision time for Depature: 12:47 Referrals: LUDIN GALINDO MD (PCP/Family) Primary Care Physician Patient Instructions: Chronic Obstructive Pulmonary Disease (COPD) (DC) Add. Discharge Instructions: Please call the [facility] clinic this afternoon and try to get in for an appointment this week to get your oxygen orders changed to continuous oxygen therapy. Please come back to the emergency room if you develop any fever, worsening shortness of breath with productive cough or any other emergent concerning symptoms. Please try and avoid smoke exposure, fumes or anything that might cause you to have increased shortness of breath. Continue your daily home medications as prescribed by your primary care doctor. Scripts Prednisone (Prednisone) 20 Mg Tab 20 MG PO DAILY, #26 TAB Take 3 tablets once a day for 4d Take 2 tablets once a day for 4d Take 1 tablet once a day for 4 days then 1/2 tablet once a day for 4 days Prov: MICHELET SANDRA MD 03/23/21 MICHELET SANDRA MD Mar 23, 2021 10:28
[2021-03-23] MEDS ORDERED: RT-ALBUTEROL SULF 2.5 MG/3 ML PRE-MIX VIAL INH ONE (10:30)
[2021-03-23] MEDS ORDERED: RT-ALBUTEROL SULF 2.5 MG/3 ML PRE-MIX VIAL ONE (10:36)
[2021-03-23 10:57] LABS: HEMOGLOBIN 16.8 g/dL (11.5-16.0); MEAN CORPUSCULAR VOLUME 94 fL (80-99); PLATELET COUNT 135 10^3/uL (130-400)
[2021-03-23 10:59] LABS: BASOPHILS # (AUTO) 0.1 10^3/uL (0.0-0.1); BASOPHILS % (AUTO) 1 % (0-10); EOSINOPHILS # (AUTO) 0.6 10^3/uL (0.0-0.3); EOSINOPHILS % (AUTO) 6 % (0-10); HEMATOCRIT 48 % (35-52); LYMPHOCYTES # (AUTO) 1.5 10^3/uL (1.0-4.0); LYMPHOCYTES % (AUTO) 16 % (12-44); MEAN CORPUSCULAR HEMOGLOBIN 33 pg (25-34); MEAN CORPUSCULAR HGB CONC 35 g/dL (32-36); MEAN PLATELET VOLUME 9.8 fL (9.0-12.2); MONOCYTES # (AUTO) 0.6 10^3/uL (0.0-1.0); MONOCYTES % (AUTO) 7 % (0-12); NEUTROPHILS # (AUTO) 6.5 10^3/uL (1.8-7.8); NEUTROPHILS % (AUTO) 70 % (42-75); WHITE BLOOD COUNT 9.2 10^3/uL (4.3-11.0)
[2021-03-23 11:09] LABS: POTASSIUM 4.3 MMOL/L (3.6-5.0)
[2021-03-23 11:10] LABS: CALCIUM 9.3 MG/DL (8.5-10.1)
[2021-03-23 11:15] LABS: CREATININE SERUM 0.87 MG/DL (0.60-1.30)
--- NOTE | 2021-03-23 11:25 | Diagnostic Imaging Report ---
EXAMINATION: Chest 1 view HISTORY: SOB/COPD acute exacerbation COMPARISON: 01/31/2021 FINDINGS: Heart size and pulmonary vasculature are normal. The lungs are clear without consolidation, pleural effusion, or pneumothorax. The osseous structures are intact. IMPRESSION: 1. No acute radiographic abnormality in the chest. Dictated by: Dictated on workstation # [id number]
[2021-03-23] MEDS ORDERED: methylPREDNISolone 125 MG (Solu-MEDROL) VIAL IVP ONE (11:45)
[2021-03-23] MEDS ORDERED: PRD20T PO (12:53)
[2021-03-23 13:02] VITALS: BP 139/91
== END 2021-03-23 13:02 | disposition home or self-care (01) ==
LOC: EDUNIT# 09:47 → ER 09:49
DX: J44.1 Chronic obstructive pulmonary disease with (acute) exacerbation (principal); R09.02 Hypoxemia; I10 Essential (primary) hypertension; F41.9 Anxiety disorder, unspecified; F32.9 Major depressive disorder, single episode, unspecified; Z79.899 Other long term (current) drug therapy; Z79.82 Long term (current) use of aspirin
CPT/HCPCS: 36415; 71045; 80048; 85025; 93005; 94640

== ENCOUNTER 2021-05-10 09:27 | Inpatient (IN) | payer MEDICARE ==
[~2021-05-10] VITALS: Ht 165.1 cm; Wt 70.6 kg
[~2021-05-10 09:27] MED LIST changes: +CYCL10TA25 PO; -CYCL10TA9 PO; +MONT-40 PO; -MONT10TA32 PO
[2021-05-10] MEDS ORDERED: PROMETHAZINE INJ 25 MG/ML (PHENERGAN) AMP ONE (09:38)
[2021-05-10] MEDS ORDERED: RT-ALBUTEROL HFA 8.5 GM INHALER IH ONE (09:38)
[2021-05-10] MEDS ORDERED: PROMETHAZINE INJ 25 MG/ML (PHENERGAN) AMP IVP ONE (09:45)
[2021-05-10] MEDS ORDERED: RT-ALBUTEROL HFA 8.5 GM INHALER IH STA (09:45)
[2021-05-10 09:53] LABS: BASOPHILS % (AUTO) 0 % (0-10); MEAN CORPUSCULAR VOLUME 96 fL (80-99); MONOCYTES # (AUTO) 1.1 10^3/uL (0.0-1.0); MONOCYTES % (AUTO) 8 % (0-12)
[2021-05-10 09:55] LABS: EOSINOPHILS # (AUTO) 0.4 10^3/uL (0.0-0.3); EOSINOPHILS % (AUTO) 3 % (0-10); HEMATOCRIT 48 % (35-52); HEMOGLOBIN 16.1 g/dL (11.5-16.0); LYMPHOCYTES # (AUTO) 0.8 10^3/uL (1.0-4.0); LYMPHOCYTES % (AUTO) 6 % (12-44); MEAN CORPUSCULAR HEMOGLOBIN 32 pg (25-34); MEAN CORPUSCULAR HGB CONC 34 g/dL (32-36); NEUTROPHILS # (AUTO) 11.7 10^3/uL (1.8-7.8); NEUTROPHILS % (AUTO) 83 % (42-75); PLATELET COUNT 98 10^3/uL (130-400); WHITE BLOOD COUNT 14.1 10^3/uL (4.3-11.0)
[2021-05-10 09:58] LABS: ALBUMIN 4.1 GM/DL (3.2-4.5); POTASSIUM 3.7 MMOL/L (3.6-5.0)
[2021-05-10 09:59] LABS: CALCIUM 9.1 MG/DL (8.5-10.1)
[2021-05-10 10:00] LABS: TOTAL PROTEIN 7.1 GM/DL (6.4-8.2)
[2021-05-10 10:02] LABS: BILIRUBIN,TOTAL 0.8 MG/DL (0.1-1.0)
[2021-05-10 10:04] LABS: CREATININE SERUM 0.89 MG/DL (0.60-1.30)
[2021-05-10 10:07] LABS: BAND NEUTROPHILS 13 %; EOSINOPHILS % (MANUAL) 3 %; LYMPHOCYTES % (MANUAL) 6 %; MONOCYTES % (MANUAL) 4 %; NEUTROPHILS % (MANUAL) 74 %; RBC MORPH NORMAL
--- NOTE | 2021-05-10 11:25 | Diagnostic Imaging Report ---
CLINICAL INDICATION: Patient with nausea, vomiting, and abdominal pain. EXAMS: X-ray of the chest PA view and x-ray of the abdomen supine and upright views. COMPARISON: Chest x-ray dated 03/23/2021. CT scan of the chest without contrast dated 03/16/2014. FINDINGS: CHEST: There is interval development of a small area of infiltrate in the right lung base. Otherwise, the lungs are clear. There is no pleural effusion or pneumothorax. Pulmonary vasculature and cardiac silhouette are within normal limits. Bones show no significant abnormality. ABDOMEN AND PELVIS: Vascular calcifications overlying the left of midline are again seen which correlate to splenic artery calcifications seen on the comparison chest CT scan. There is no evidence of intestinal obstruction or intra-abdominal free air. There is a small amount of stool and air in the left colon and rectosigmoid region. There are small spurs involving the thoracic spine. IMPRESSION: 1: Interval development of a small infiltrate in the right lung base, concerning for pneumonia. 2: Stable and unremarkable x-ray of the abdomen and pelvis. There is no intestinal obstruction. There is no significant stool load. Dictated by: Dictated on workstation # [id number]
[2021-05-10] MEDS ORDERED: methylPREDNISolone 40 MG/ML (Solu-MEDROL) VIAL IV ONE (11:45)
[2021-05-10] MEDS ORDERED: CEFEPIME INJECTION 2,000 MG in NS (IVPB) 50 ML IV ONE (11:45)
--- NOTE | 2021-05-10 11:46 | ED General ---
General Chief Complaint: Abdominal/GI Problems Stated Complaint: N/V Source of Information: Patient, EMS, Old Records Exam Limitations: No Limitations History of Present Illness Date Seen by Provider: May 10, 2021 Time Seen by Provider: 09:27 Initial Comments This is 60-year-old woman presents to the emergency room via EMS with acute onset of nausea, vomiting, and shortness of breath. She also reports a right neck and shoulder pain which is chronic and unchanged. She normally uses nasal cannula oxygen at home at 2 L/min. She is presently requiring 4 L/min. She is rather wheezy. EMS administered Zofran 8 mg IV and patient is still retching and nauseous. Patient denies any fever. Symptoms started early this morning. She has received 2 doses of Covid vaccination. Allergies and Home Medications Allergies Coded Allergies: No Known Drug Allergies (Unverified , 08/22/16) Patient Home Medication List Home Medication List Reviewed: Yes Albuterol Sulfate (Albuterol Sulfate) 2.5 Mg/3 Ml Vial.neb, 2.5 MG NEB Q4H PRN for SHORTNESS OF BREATH, (Reported) Entered as Reported by: KANE CRISOSTOMO on 02/03/21 1150 Albuterol Sulfate (Proair Hfa) 1 Puff Puff, 2 PUFF IH Q4H PRN for SHORTNESS OF BREATH, (Reported) Entered as Reported by: KANE CRISOSTOMO on 02/03/21 1150 Aspirin (Aspirin EC) 81 Mg Tablet.dr, 81 MG PO DAILY, (Reported) Entered as Reported by: KANE CRISOSTOMO on 02/03/21 1150 Cyclobenzaprine HCl (Cyclobenzaprine HCl) 10 Mg Tablet, 10 MG PO qhs Prescribed by: NIRU LENNON on 02/07/21 1134 Enalapril Maleate (Enalapril Maleate) 2.5 Mg Tablet, 2.5 MG PO DAILY, (Reported) Entered as Reported by: KANE CRISOSTOMO on 02/03/21 1150 Fluticasone/Salmeterol (Advair 500-50 Diskus) 1 Each Blst.w.dev, 1 EACH IH BID, (Reported) Entered as Reported by: KANE CRISOSTOMO on 02/03/21 1150 Guaifenesin (Mucinex) 1,200 Mg Tab.er.12h, 1,200 MG PO BID, (Reported) Entered as Reported by: KANE CRISOSTOMO on 02/03/21 115 Loratadine (Loratadine) 10 Mg Tablet, 10 MG PO DAILY, (Reported) Entered as Reported by: KANE CRISOSTOMO on 02/03/21 115 Metoprolol Succinate (Metoprolol Succinate) 25 Mg Tab.er.24h, 12.5 MG PO DAILY, (Reported) Entered as Reported by: KANE CRISOSTOMO on 02/03/21 115 Montelukast Sodium (Montelukast Sodium) 10 Mg Tablet, 10 MG PO HS, (Reported) Entered as Reported by: KANE CRISOSTOMO on 02/03/21 115 Potassium Chloride (K-Tab ER) 10 Meq Tablet.er, 10 MEQ PO DAILY, (Reported) Entered as Reported by: KANE CRISOSTOMO on 02/03/21 115 Prednisone (Prednisone) 20 Mg Tab, 0 PO DAILY Prescribed by: NIRU LENNON on 02/07/21 1134 Prednisone (Prednisone) 20 Mg Tab, 20 MG PO DAILY Prescribed by: MICHELET SANDRA on 03/23/21 1253 Sertraline HCl (Sertraline HCl) 100 Mg Tablet, 150 MG PO DAILY, (Reported) Entered as Reported by: KANE CRISOSTOMO on 02/03/21 115 Tiotropium [place] (Spiriva) 1 Inh Aerp, 2 INH IH HS, (Reported) Entered as Reported by: KANE CRISOSTOMO on 02/03/21 115 Review of Systems Review of Systems Constitutional: no symptoms reported EENTM: no symptoms reported Respiratory: see HPI Cardiovascular: no symptoms reported; No chest pain Gastrointestinal: see HPI Genitourinary: no symptoms reported Musculoskeletal: no symptoms reported Skin: no symptoms reported Psychiatric/Neurological: No Symptoms Reported Hematologic/Lymphatic: No Symptoms Reported Immunological/Allergic: no symptoms reported Past Xccdtss-[id number]-Qqbmmd Hx Patient Social History Tobacco Use?: No Smoking Status: Former Smoker Use of E-Cig and/or Vaping dev: No Substance use?: Yes Substance type: Marijuana Alcohol Use?: Yes Alcohol Frequency: Once in a while Pt feels they are or have been: No Immunizations Up To Date Tetanus Booster (TDap): Less than 5yrs PED Vaccines UTD: Yes Influenza Vaccine Up-to-Date: Yes; Up-to-Date First/Initial COVID19 Vaccinat: 10/2020 Second COVID19 Vaccination Bjorn: 10/2020 Third COVID19 Vaccination Date: 10/2020 Seasonal Allergies Seasonal Allergies: Yes Past Medical History Surgeries: Yes Section, Hysterectomy, Orthopedic Respiratory: Yes COPD Currently Using CPAP: Yes Currently Using BIPAP: No Cardiac: Yes (nonischemic cardiomyopathy) Hypertension Neurological: No 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 Disorders: No 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 Sexually Transmitted Disease: No HIV/AIDS: No Genitourinary: Yes Kidney Stones Gastrointestinal: Yes Hepatitis Musculoskeletal: Yes Arthritis Endocrine: No HEENT: No Loss of Vision: Bilateral Hearing Impairment: Denies Psychosocial: Yes (mood disorder) Anxiety, Depression Eczema Adverse Reaction/Blood Tranf: No Family Medical History Arthritis 19 FATHER Asthma 19 MOTHER Cardiovascular disease 19 FATHER Chest pain 19 FATHER Congestive heart failure 19 FATHER Diabetes mellitus 19 MOTHER Family history: Arthritis 19 FATHER Family history: Asthma 19 MOTHER Family history: Cardiovascular disease 19 FATHER Family history: Diabetes mellitus 19 MOTHER Family history: Hypertension 19 FATHER 19 MOTHER Heart disease 19 FATHER History of - respiratory disease 19 MOTHER Visual impairment 19 MOTHER No Family History of: AIDS Abdominal aortic aneurysm Abdominal aortic aneurysm Allen's disease Allen's disease Alcoholism Alcoholism Alzheimer's disease Aphasia Aphasia Cancer Cancer of colon Cataract Congenital heart disease Cystic fibrosis Dementia Dysphagia Family history: Allergy Family history: Alzheimer's disease Family history: Breast disease Family history: Coronary thrombosis Family history: Gastrointestinal disease Family history: Glaucoma Family history: Osteoporosis Family history: Thyroid disorder Fibrocystic disease of breast Gastroenteritis Glaucoma Headache Hearing loss Hereditary disease History of - anemia History of - disorder History of drug abuse Human immunodeficiency virus (HIV) seropositivity Hypercholesterolemia Infertile Kidney disease Malignant neoplasm of lung Myocardial infarction Parkinson's disease Psychotic disorder Seizure disorder Stroke Tuberculosis Diabetes Physical Exam Vital Signs Vital Signs - First Documented 05/10/21 09:28 Temp 36.2 Pulse 106 Resp 20 B/P (MAP) 153/107 (122) Pulse Ox 91 O2 Delivery Nasal Cannula O2 Flow Rate 3.00 Capillary Refill : Height, Weight, BMI Height: 5'7.00" Weight: 155lbs. 3.0oz. 70.376677jd; 24.00 BMI Method:Stated General Appearance: WD/WN, Moderate Distress HEENT: PERRL/EOMI, Normal ENT Inspection Neck: Normal Inspection Respiratory: Accessory Muscle Use, Rhonci (Course), Wheezing Cardiovascular: No Edema, No Murmur, Tachycardia Extremity: Normal Inspection, No Pedal Edema Neurologic/Psychiatric: Alert, Oriented x3, No Motor/Sensory Deficits, Normal Mood/Affect, live hanger II-XII Norm as Tested Skin: Normal Color, Warm/Dry Progress/Results/Core Measures Suspected Sepsis SIRS Temperature: Pulse: 106 Respiratory Rate: 20 Laboratory Tests 05/10/21 09:35: White Blood Count 14.1H Blood Pressure 153 /107 Mean: 122 Laboratory Tests 05/10/21 09:35: Creatinine 0.89, Platelet Count 98L, Total Bilirubin 0.8 Results/Orders Lab Results Laboratory Tests Test 05/10/21 09:35 Range/Units White Blood Count 14.1 H 4.3-11.0 10^3/uL Red Blood Count 4.97 3.80-5.11 10^6/uL Hemoglobin 16.1 H 11.5-16.0 g/dL Hematocrit 48 35-52 % Mean Corpuscular Volume 96 80-99 fL Mean Corpuscular Hemoglobin 32 25-34 pg Mean Corpuscular Hemoglobin Concent 34 32-36 g/dL Red Cell Distribution Width 14.2 10.0-14.5 % Platelet Count 98 L 130-400 10^3/uL Mean Platelet Volume 10.0 9.0-12.2 fL Immature Granulocyte % (Auto) 0 % Neutrophils (%) (Auto) 83 H 42-75 % Lymphocytes (%) (Auto) 6 L 12-44 % Monocytes (%) (Auto) 8 0-12 % Eosinophils (%) (Auto) 3 0-10 % Basophils (%) (Auto) 0 0-10 % Neutrophils # (Auto) 11.7 H 1.8-7.8 10^3/uL Lymphocytes # (Auto) 0.8 L 1.0-4.0 10^3/uL Monocytes # (Auto) 1.1 H 0.0-1.0 10^3/uL Eosinophils # (Auto) 0.4 H 0.0-0.3 10^3/uL Basophils # (Auto) 0.0 0.0-0.1 10^3/uL Immature Granulocyte # (Auto) 0.1 0.0-0.1 10^3/uL Neutrophils % (Manual) 74 % Lymphocytes % (Manual) 6 % Monocytes % (Manual) 4 % Eosinophils % (Manual) 3 % Band Neutrophils 13 % Percent Immature Platelet Fraction 2.5 0.0-7.6 % Blood Morphology Comment NORMAL Sodium Level 138 135-145 MMOL/L Potassium Level 3.7 3.6-5.0 MMOL/L Chloride Level 106 98-107 MMOL/L Carbon Dioxide Level 22 21-32 MMOL/L Anion Gap 10 5-14 MMOL/L Blood Urea Nitrogen 15 7-18 MG/DL Creatinine 0.89 0.60-1.30 MG/DL Estimat Glomerular Filtration Rate 65 BUN/Creatinine Ratio 17 Glucose Level 120 H 70-105 MG/DL Calcium Level 9.1 8.5-10.1 MG/DL Corrected Calcium 9.0 8.5-10.1 MG/DL Total Bilirubin 0.8 0.1-1.0 MG/DL Aspartate Amino Transf (AST/SGOT) 30 5-34 U/L Alanine Aminotransferase (ALT/SGPT) 30 0-55 U/L Alkaline Phosphatase 51 40-136 U/L C-Reactive Protein High Sensitivity 2.25 H 0.00-0.50 MG/DL Total Protein 7.1 6.4-8.2 GM/DL Albumin 4.1 3.2-4.5 GM/DL Lipase 32 8-78 U/L Influenza Type A (RT-PCR) Not Detected Not Detecte Influenza Type B (RT-PCR) Not Detected Not Detecte SARS-CoV-2 RNA (RT-PCR) Not Detected Not Detecte My Orders Orders - APPLE MCCULLOUGH MD Promethazine Injection (Phenergan Injec (05/10/21 09:38) Albuterol Inhaler (Albuterol) (05/10/21 09:38) Promethazine Injection (Phenergan Injec (05/10/21 09:45) Albuterol Inhaler (Albuterol) (05/10/21 09:45) Cbc With Automated Diff (05/10/21:45) Comprehensive Metabolic Panel (05/10/21 09:45) Hs C Reactive Protein (05/10/21 09:45) Lipase (05/10/21:45) Ua Culture If Indicated (05/10/21:45) Monitor-Rhythm Ecg Trace Only (05/10/21:45) Covid 19 Inhouse Test (05/10/21 09:45) Influenza A And B By Pcr (05/10/21 09:45) Manual Differential (05/10/21 09:35) Acute Abd Series (05/10/21 10:33) Blood Culture (05/10/21 11:36) Sputum Culture (05/10/21 11:36) Urinalysis (05/10/21 11:36) Urine Culture (05/10/21 11:36) Protime With Inr (05/10/21 11:36) Partial Thromboplastin Time (05/10/21 11:36) Vital Signs Adult Sepsis Patie Q15M (05/10/21 11:36) Remove Rings In Anticipation O (05/10/21 11:36) Lactic Acid Analyzer (05/10/21 11:36) Cefepime Injection (Maxipime Injection) (05/10/21 11:45) Methylprednisolone Sod Succ (Solu-Medrol (05/10/21 11:45) Medications Given in ED Current Medications Medications Dose Ordered Sig/Alphonse Route Start Time Stop Time Status Last Admin Dose Admin Albuterol Sulfate 8.5 gm STK-MED ONCE IH 05/10/21 09:38 05/10/21 09:41 DC 05/10/21 09:42 8.5 GM Promethazine HCl 25 mg STK-MED ONCE .ROUTE 05/10/21 09:38 05/10/21 09:41 DC 05/10/21 09:43 12.5 MG Vital Signs/I&O 05/10/21 09:28 Temp 36.2 Pulse 106 Resp 20 B/P (MAP) 153/107 (122) Pulse Ox 91 O2 Delivery Nasal Cannula O2 Flow Rate 3.00 Capillary Refill : Blood Pressure Mean: 122 Progress Note : Time: 11:51 Progress Note Nasal cannula oxygen was bumped up to 4 L/min. She was given 4 puffs off an albuterol inhaler. This did improve her wheezing but she continues to have coarse rhonchi on reexamination. Phenergan 12.5 mg was placed in the liter of normal saline started by EMS. This did resolve her nausea and vomiting. She is drowsy from the Phenergan but still responding appropriately to questions at this time. KUB and upright x-ray revealed a right lower lobe pneumonia. In context of leukocytosis and tachycardia, this could represent pneumonia with sepsis. Blood cultures and lactic acid are being drawn. Cefepime is being administered for initial antibiotic therapy. Case was reviewed with Dr. Yates. She would also like Solu-Medrol 40 mg IV administered in the ER. I discussed CODE STATUS with the patient. She wishes to remain full code at this time. Abdomen is nondistended and nontender on reexamination. Diagnostic Imaging Diagonstic Imaging: Xray Plain Films/CT/US/NM/MRI: chest, abdomen, pelvis Comments Acute abdominal series reviewed by me and report reviewed. See report below: NAME: HANK BATISTA [facility] REC#: [id number] PT STATUS: REG ER : 1960 PHYSICIAN: APPLE MCCULLOUGH MD ADMIT DATE: 05/10/21/ER Draft Date of Exam:05/10/21 ACUTE ABD SERIES CLINICAL INDICATION: Patient with nausea, vomiting, and abdominal pain. EXAMS: X-ray of the chest PA view and x-ray of the abdomen supine and upright views. COMPARISON: Chest x-ray dated 03/23/2021. CT scan of the chest without contrast dated 03/16/2014. FINDINGS: CHEST: There is interval development of a small area of infiltrate in the right lung base. Otherwise, the lungs are clear. There is no pleural effusion or pneumothorax. Pulmonary vasculature and cardiac silhouette are within normal limits. Bones show no significant abnormality. ABDOMEN AND PELVIS: Vascular calcifications overlying the left of midline are again seen which correlate to splenic artery calcifications seen on the comparison chest CT scan. There is no evidence of intestinal obstruction or intra-abdominal free air. There is a small amount of stool and air in the left colon and rectosigmoid region. There are small spurs involving the thoracic spine. IMPRESSION: 1: Interval development of a small infiltrate in the right lung base, concerning for pneumonia. 2: Stable and unremarkable x-ray of the abdomen and pelvis. There is no intestinal obstruction. There is no significant stool load. Dictated on workstation # [id number] Dict: 05/10/21 1114 Trans: 05/10/21 1124 [id number] Interpreted by: JOHN RIZZO MD Departure Communication (Admissions) Time/Spoke to Admitting Phy: 11:40 Dr. Yates Impression Primary Impression: Sepsis Qualified Codes: A41.9 - Sepsis, unspecified organism Additional Impressions: Right lower lobe pneumonia Qualified Codes: J18.9 - Pneumonia, unspecified organism COPD exacerbation Nausea and vomiting Qualified Codes: R11.2 - Nausea with vomiting, unspecified Disposition: ADMITTED INPATIENT Condition: Improved Admissions Decision to Admit Reason: Admit from ER (General) Decision to Admit/Date: May 10, 2021 Time/Decision to Admit Time: 11:30 Departure-Patient Inst. Referrals: LUDIN GALINDO MD (PCP/Family) Primary Care Physician APPLE MCCULLOUGH MD May 10, 2021 11:46
[2021-05-10 12:13] LABS: BILIRUBIN,URINE NEGATIVE (NEGATIVE); CLARITY,URINE CLEAR; COLOR,URINE YELLOW; GLUCOSE, URINE (UA) NEGATIVE (NEGATIVE); KETONES,URINE NEGATIVE (NEGATIVE); LEUKOCYTE ESTERASE ,URINE NEGATIVE (NEGATIVE); NITRITE,URINE NEGATIVE (NEGATIVE); PROTEIN,URINE NEGATIVE (NEGATIVE)
[2021-05-10 12:19] LABS: BACTERIA,URINE NEGATIVE /HPF; SQUAMOUS EPITHELIAL CELL,UR 0-2 /HPF; WBC,URINE RARE /HPF
[2021-05-10 13:12] VITALS: BP 113/69
[2021-05-10] MEDS ORDERED: ONDANSETRON 4 MG/2 ML (SDV) Z0FRAN IVP PRN (13:30)
[2021-05-10] MEDS ORDERED: PROMETHAZINE INJ 25 MG/ML (PHENERGAN) AMP IM PRN (13:30)
[2021-05-10] MEDS ORDERED: DOCUSATE SODIUM 100 MG (COLACE) CAP PO PRN (13:30)
[2021-05-10] MEDS ORDERED: BISACODYL 10 MG SUPP (DULCOLAX) PR PRN (13:30)
[2021-05-10] MEDS ORDERED: morphine INJ 10 MG/ML 1ML (SYR OR VIAL) IVP PRN (13:30)
[2021-05-10] MEDS ORDERED: MELATONIN 3 MG TABLET PO PRN (13:30)
[2021-05-10] MEDS ORDERED: SCOPOLAMINE 1.5 MG (TRANSDERM-SCOP) PATCH TD PRN (13:30)
[2021-05-10] MEDS ORDERED: LOPERAMIDE 2 MG (IMODIUM) TABLET PO PRN (13:30)
[2021-05-10] MEDS ORDERED: guaiFENesin/CODEINE (ROBITUSSIN AC) 10ML UDC PO PRN (13:30)
[2021-05-10] MEDS ORDERED: LORazepam INJ 2 MG/ML (ATIVAN) VIAL IVP PRN (13:30)
[2021-05-10] MEDS ORDERED: ALPRAZolam 0.25 MG (XANAX) TAB PO PRN (13:30)
[2021-05-10] MEDS ORDERED: diphenhydrAMINE 25 MG TAB (BENADRYL) PO PRN (13:30)
[2021-05-10] MEDS ORDERED: ONDANSETRON 4 MG (ZOFRAN) ORAL DISSOLVE TAB PO PRN (13:30)
[2021-05-10] MEDS ORDERED: CALCIUM CARBONATE 500 MG (TUMS) TAB.CHEW PO PRN (13:30)
[2021-05-10] MEDS ORDERED: METOCLOPRAMIDE INJ 10 MG/2 ML (REGLAN) IVP PRN (13:30)
[2021-05-10] MEDS: HYDROcodone/APAP 5 MG/325 MG (LORTAB) TAB PO PRN ×3 (13:36→23:11)
[2021-05-10] MEDS ORDERED: ONDANSETRON 4 MG/2 ML (SDV) Z0FRAN ONE (13:38)
[2021-05-10] MEDS ORDERED: RT-ALBUINH IH (13:58)
[2021-05-10] MEDS ORDERED: NYST1000 PO (13:58)
[2021-05-10] MEDS: ENOXAPARIN 40 MG/0.4 ML (LOVENOX) SYR SC SCH (15:34)
[2021-05-10] MEDS: NS IV 1000 ML 1,000 ML IV SCH ×2 (15:34→23:12)
[2021-05-10 15:59] VITALS: BP 124/74
[2021-05-10 16:33] VITALS: BP 153/107
[2021-05-10] MEDS: methylPREDNISolone 40 MG/ML (Solu-MEDROL) VIAL IV SCH ×2 (18:04→23:11)
[2021-05-10] MEDS: CEFEPIME INJECTION 1,000 MG in NS (IVPB) 50 ML IV SCH ×2 (18:04→23:15)
[2021-05-10] MEDS: RT-ALBUTEROL/IPRATROPIUM 3 ML (DUONEB) VIAL INH SCH ×2 (18:28→22:15)
[2021-05-10] MEDS ORDERED: RT-ALBUTEROL/IPRATROPIUM 3 ML (DUONEB) VIAL INH PRN (20:00)
[2021-05-10 20:35] VITALS: BP 97/52
[2021-05-10] MEDS: MONTELUKAST 10 MG (SINGULAIR) TAB PO SCH (20:55)
[2021-05-10] MEDS: SENNA W/DOCUSATE (SENOKOT S) TABLET PO SCH (20:55)
[2021-05-11 00:30] VITALS: BP 105/66
[2021-05-11] MEDS: RT-ALBUTEROL/IPRATROPIUM 3 ML (DUONEB) VIAL INH SCH ×6 (02:31→22:11)
[2021-05-11 04:55] VITALS: BP 110/70
[2021-05-11] MEDS: CEFEPIME INJECTION 1,000 MG in NS (IVPB) 50 ML IV SCH ×3 (05:21→17:22)
[2021-05-11] MEDS: methylPREDNISolone 40 MG/ML (Solu-MEDROL) VIAL IV SCH ×3 (05:23→17:22)
--- NOTE | 2021-05-11 05:50 | Diagnostic Imaging Report ---
Indication: Lower respiratory infection Portable chest 4:55 AM Heart size and pulmonary vascularity are normal. Lungs are clear. There are no effusions or pneumothoraces. IMPRESSION: No acute abnormalities in the chest Dictated by: Dictated on workstation # [id number]
[2021-05-11 06:15] LABS: BASOPHILS % (AUTO) 0 % (0-10); HEMOGLOBIN 12.9 g/dL (11.5-16.0)
[2021-05-11 06:16] LABS: EOSINOPHILS % (AUTO) 0 % (0-10); HEMATOCRIT 39 % (35-52); LYMPHOCYTES # (AUTO) 0.5 10^3/uL (1.0-4.0); LYMPHOCYTES % (AUTO) 4 % (12-44); MEAN CORPUSCULAR HEMOGLOBIN 32 pg (25-34); MEAN CORPUSCULAR HGB CONC 33 g/dL (32-36); MEAN CORPUSCULAR VOLUME 97 fL (80-99); MEAN PLATELET VOLUME 10.7 fL (9.0-12.2); MONOCYTES # (AUTO) 0.3 10^3/uL (0.0-1.0); MONOCYTES % (AUTO) 2 % (0-12); NEUTROPHILS # (AUTO) 9.3 10^3/uL (1.8-7.8); NEUTROPHILS % (AUTO) 91 % (42-75); PLATELET COUNT 87 10^3/uL (130-400); WHITE BLOOD COUNT 10.2 10^3/uL (4.3-11.0)
[2021-05-11 06:24] LABS: ALBUMIN 3.3 GM/DL (3.2-4.5)
[2021-05-11 06:25] LABS: POTASSIUM 3.9 MMOL/L (3.6-5.0)
[2021-05-11 06:26] LABS: CALCIUM 8.8 MG/DL (8.5-10.1)
[2021-05-11 06:27] LABS: TOTAL PROTEIN 6.1 GM/DL (6.4-8.2)
[2021-05-11 06:29] LABS: BILIRUBIN,TOTAL 0.5 MG/DL (0.1-1.0)
[2021-05-11 06:31] LABS: CREATININE SERUM 0.75 MG/DL (0.60-1.30)
[2021-05-11 08:00] VITALS: BP 131/72
[2021-05-11] MEDS: HYDROcodone/APAP 5 MG/325 MG (LORTAB) TAB PO PRN ×3 (08:25→20:25)
[2021-05-11] MEDS: NS IV 1000 ML 1,000 ML IV SCH ×2 (08:26→13:56)
[2021-05-11] MEDS: SENNA W/DOCUSATE (SENOKOT S) TABLET PO SCH ×2 (08:26→20:21)
[2021-05-11] MEDS: ACETAMINOPHEN 325 MG TABLET PO PRN (11:34)
[2021-05-11 12:00] VITALS: BP 131/81
[2021-05-11] MEDS: ENOXAPARIN 40 MG/0.4 ML (LOVENOX) SYR SC SCH (13:56)
--- NOTE | 2021-05-11 15:39 | History & Physical-Hospitalist ---
SHERRI SALAZAR 05/11/21 1539: History of Present Illness HPI/Chief Complaint Patient is a 60 year old female who was admitted to the ER for pneumonia and s epsis. The patient was empirically placed on cefepime and solumedrol. Patient had blood cultures that grew out pseudomonas. Patient has a history of HTN, COPD and asthma. Patient quit smoking three weeks ago. Patient stated that her symptoms started early sunday morning. She had symptoms of vomiting, fever, and headache. Patient couldn't get symptoms under control and decided to go to the ER. Patient does say that this morning she is feeling a lot better, her N/V is under control, and her fever has broken. Patient does sound diminished in her lower lobes. She is complaining of being unable to sleep and is requesting something for sleep. Source: patient, old records Date Seen 05/11/21 Time Seen by a Provider: 09:30 Attending Physician Danielle Yates DO PCP Siva Lutz MD Referring Physician Date of Admission May 10, 2021 at 11:47 Home Medications & Allergies Home Medications Reviewed patient Home Medication Reconciliation performed by pharmacy medication reconciliations appraisal technician and/or nursing. Patients Allergies have been reviewed. Allergies Allergies Coded Allergies No Known Drug Allergies (Unverified08/22/16) Past [id number]-[id number]-[id number] Hx Patient Social History Tobacco Use?: No Smoking Status: Former Smoker Use of E-Cig and/or Vaping dev: No E-Cig or Vaping type used: Marijuana Substance use?: Yes Substance type: Marijuana Substance frequency: Once in a while Alcohol Use?: Yes Additional alcohol type: ONCE OR TWICE A YEAR Alcohol Frequency: Once in a while Pt feels they are or have been: No Immunizations Up To Date Date of Influenza Vaccine: Feb 21, 2016 First/Initial COVID19 Vaccinat: 10/2020 Second COVID19 Vaccination Bjorn: 10/2020 Hepatitis A: Yes Hepatitis B: Yes PED Vaccines UTD: Yes Date of Pneumonia Vaccine: Feb 21, 2016 Seasonal Allergies Seasonal Allergies: Yes Current Status Advance Directives: No Communicates: Verbally Primary Language: Northern Irish Preferred Spoken Language: Northern Irish Is interpretation needed?: No Past Medical History Surgeries: Section, Hysterectomy, Orthopedic Asthma, COPD Currently Using CPAP: Yes Currently Using BIPAP: No 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 COPD- on vent to mask at night 2. CHF due to nonischemic cardiomyopathy, last EF 50% 10/2013 3. Hepatitis C- SP treatment, viral load reported as negative 4. Tobaccoism 5. HTN 6. Mood Disorder 7. Anxiety 8. Asthma Dx at age 12 9. Kidney Stones 10. HLP 11. Remote history of Methamphetamine use 12. History of THC use Past Surgical History 1. Hysterectomy 2. section 3. Carpal tunnel surgery 4. Liver Biopsy Family Medical History Arthritis 19 FATHER Asthma 19 MOTHER Cardiovascular disease 19 FATHER Chest pain 19 FATHER Congestive heart failure 19 FATHER Diabetes mellitus 19 MOTHER Family history: Arthritis 19 FATHER Family history: Asthma 19 MOTHER Family history: Cardiovascular disease 19 FATHER Family history: Diabetes mellitus 19 MOTHER Family history: Hypertension 19 FATHER 19 MOTHER Heart disease 19 FATHER History of - respiratory disease 19 MOTHER Visual impairment 19 MOTHER No Family History of: AIDS Abdominal aortic aneurysm Abdominal aortic aneurysm Benton's disease Allen's disease Alcoholism Alcoholism Alzheimer's disease Aphasia Aphasia Cancer Cancer of colon Cataract Congenital heart disease Cystic fibrosis Dementia Dysphagia Family history: Allergy Family history: Alzheimer's disease Family history: Breast disease Family history: Coronary thrombosis Family history: Gastrointestinal disease Family history: Glaucoma Family history: Osteoporosis Family history: Thyroid disorder Fibrocystic disease of breast Gastroenteritis Glaucoma Headache Hearing loss Hereditary disease History of - anemia History of - disorder History of drug abuse Human immunodeficiency virus (HIV) seropositivity Hypercholesterolemia Infertile Kidney disease Malignant neoplasm of lung Myocardial infarction Parkinson's disease Psychotic disorder Seizure disorder Stroke Tuberculosis Diabetes Review of Systems Constitutional: No chills, No fever Respiratory: cough, dyspnea on exertion Gastrointestinal: No diarrhea, No nausea, No vomiting Genitourinary: No decreased output, No dysuria Psychiatric/Neurological: Denies Headache Physical Exam Physical Exam Vital Signs Vital Signs - First Documented 05/10/21 05/10/21 09:28 16:33 Temp 36.2 Pulse 106 Resp 20 B/P (MAP) 153/107 (122) Pulse Ox 91 O2 Delivery Nasal Cannula O2 Flow Rate 3.00 FiO2 32 Capillary Refill : Height, Weight, BMI Height: 5'7.00" Weight: 155lbs. 3.0oz. [id number]; 25.90 BMI Method:Stated General Appearance: No Apparent Distress, WD/WN Respiratory: Chest Non Tender, No Accessory Muscle Use, No Respiratory Distress, Decreased Breath Sounds Cardiovascular: Regular Rate, Rhythm, Normal Peripheral Pulses Rectal: Deferred Extremity: No Calf Tenderness, No Pedal Edema Neurologic/Psychiatric: Alert, Oriented x3, Normal Mood/Affect Results Results/Procedures Labs Laboratory Tests 05/10/21 09:35 05/11/21 06:05 Patient resulted labs reviewed. Assessment/Plan Admission Diagnosis Sepsis, Pneumonia Admission Status: Inpatient Order (span 2 midnights) Reason for Inpatient Admission: Sepsis, Pneumonia Assessment and Plan Assessment Sepsis Pneumonia - Pseudomonas COPD Asthma Hypertension Plan Antibiotics Steroids Breathing treatments Home meds PT/OT Melatonin Benadryl Supportive care DANIELLE YATES 05/12/21 0616: History of Present Illness HPI/Chief Complaint CC: SOB HPI: This is a 60[facility] clinic Pt [facility] who came to the ER with SOB, found to have pneumonia, sputum showed pseudomonas, she was placed on Cefepime and she currently has a headache and the nausea and vomiting was much improved. She also has COPD. She currently is feeling much better. Source: patient Past Iqoxcpb-Rowrug-Mgyowk Hx Patient Social History Marrital Status: single Employed/Student: unemployed Smoking Status: Current Everyday Smoker Past Medical History Asthma, COPD Hypertension Kidney Infection, Bladder Infection Family Medical History Arthritis 19 FATHER Asthma 19 MOTHER Cardiovascular disease 19 FATHER Chest pain 19 FATHER Congestive heart failure 19 FATHER Diabetes mellitus 19 MOTHER Family history: Arthritis 19 FATHER Family history: Asthma 19 MOTHER Family history: Cardiovascular disease 19 FATHER Family history: Diabetes mellitus 19 MOTHER Family history: Hypertension 19 FATHER 19 MOTHER Heart disease 19 FATHER History of - respiratory disease 19 MOTHER Visual impairment 19 MOTHER No Family History of: AIDS Abdominal aortic aneurysm Abdominal aortic aneurysm Benton's disease Benton's disease Alcoholism Alcoholism Alzheimer's disease Aphasia Aphasia Cancer Cancer of colon Cataract Congenital heart disease Cystic fibrosis Dementia Dysphagia Family history: Allergy Family history: Alzheimer's disease Family history: Breast disease Family history: Coronary thrombosis Family history: Gastrointestinal disease Family history: Glaucoma Family history: Osteoporosis Family history: Thyroid disorder Fibrocystic disease of breast Gastroenteritis Glaucoma Headache Hearing loss Hereditary disease History of - anemia History of - disorder History of drug abuse Human immunodeficiency virus (HIV) seropositivity Hypercholesterolemia Infertile Kidney disease Malignant neoplasm of lung Myocardial infarction Parkinson's disease Psychotic disorder Seizure disorder Stroke Tuberculosis Review of Systems Constitutional: see HPI EENTM: no symptoms reported Respiratory: cough, dyspnea on exertion Cardiovascular: no symptoms reported Gastrointestinal: nausea, vomiting Musculoskeletal: no symptoms reported Psychiatric/Neurological: No Symptoms Reported Physical Exam Physical Exam General Appearance: No Apparent Distress, Chronically ill Eyes: Right Eye Normal Inspection, Right Eye PERRL HEENT: PERRL/EOMI, Normal ENT Inspection, Pharynx Normal, Moist Mucous Membrane s Neck: Full Range of Motion, Normal Inspection, Non Tender Respiratory: Chest Non Tender, Lungs Clear, No Accessory Muscle Use, No Respiratory Distress, Decreased Breath Sounds Cardiovascular: Regular Rate, Rhythm, No Edema, No Gallop, No JVD, No Murmur, Normal Peripheral Pulses Gastrointestinal: Normal Bowel Sounds, No Organomegaly, No Pulsatile Mass, Non Tender, Soft Back: Normal Inspection, No CVA Tenderness, No Vertebral Tenderness Extremity: Normal Capillary Refill, Normal Inspection, Normal Range of Motion, Non Tender, No Calf Tenderness, No Pedal Edema Neurologic/Psychiatric: Alert, Oriented x3, No Motor/Sensory Deficits, Normal M ood/Affect Skin: Normal Color, Warm/Dry Lymphatic: No Adenopathy Assessment/Plan Admission Diagnosis Assessment: Sepsis Nausea and vomiting Pseudomonas pneumonia History of UTI Plan: Cefepime Supportive care Antiemetics Admission Status: Inpatient Order (span 2 midnights) Reason for Inpatient Admission: Sepsis with pneumonia Diagnosis/Problems Diagnosis/Problems (1) Sepsis Status: Acute Qualifiers: Sepsis type: sepsis due to unspecified organism Sepsis acute organ dy sfunction status: without acute organ dysfunction Qualified Codes: A41.9 - Sepsis, unspecified organism (2) Pseudomonas pneumonia (3) COPD with exacerbation Status: Acute Supervisory-Addendum Brief Verification & Attestation Participated in pt care: history, MDM, physical Personally performed: exam, history, MDM, supervision of care Care discussed with: Medical Student Procedures: n/a Results interpretation: Verified all documentation Verification and Attestation of Medical Student E/M Service A medical student performed and documented this service in my presence. I reviewed and verified all information documented by the medical student and made modifications to such information, when appropriate. I personally performed the physical exam and medical decision making. Danielle Yates May 12, 2021,06:14 MARIESHERRI May 11, 2021 15:39 DANIELLE YATES DO May 12, 2021 06:16
[2021-05-11 16:21] VITALS: BP 139/74
[2021-05-11 20:00] VITALS: BP 140/78
[2021-05-11] MEDS: MONTELUKAST 10 MG (SINGULAIR) TAB PO SCH (20:20)
[2021-05-11] MEDS: diphenhydrAMINE 25 MG TAB (BENADRYL) PO SCH (20:20)
[2021-05-11] MEDS: MELATONIN 3 MG TABLET PO SCH (20:20)
[2021-05-11] MEDS ORDERED: MONTELUKAST 10 MG (SINGULAIR) TAB PO SCH (21:00)
[2021-05-11] MEDS ORDERED: NYSTATIN ORAL SUSP 5 ML UDC PO PRN (21:00)
[2021-05-12] VITALS (7 sets, daily range): BP systolic 117–170; BP diastolic 67–93
[2021-05-12] MEDS: methylPREDNISolone 40 MG/ML (Solu-MEDROL) VIAL IV SCH ×4 (00:32→17:43)
[2021-05-12] MEDS: NS IV 1000 ML 1,000 ML IV SCH ×2 (00:32→11:49)
[2021-05-12] MEDS: CEFEPIME INJECTION 1,000 MG in NS (IVPB) 50 ML IV SCH ×4 (00:32→17:43)
[2021-05-12] MEDS: RT-ALBUTEROL/IPRATROPIUM 3 ML (DUONEB) VIAL INH SCH ×6 (02:29→22:33)
[2021-05-12] MEDS: HYDROcodone/APAP 5 MG/325 MG (LORTAB) TAB PO PRN ×3 (05:51→18:33)
[2021-05-12 05:52] LABS: BASOPHILS % (AUTO) 0 % (0-10); EOSINOPHILS % (AUTO) 0 % (0-10); HEMATOCRIT 36 % (35-52); HEMOGLOBIN 11.9 g/dL (11.5-16.0); LYMPHOCYTES # (AUTO) 0.4 10^3/uL (1.0-4.0); LYMPHOCYTES % (AUTO) 6 % (12-44); MEAN CORPUSCULAR HEMOGLOBIN 32 pg (25-34); MEAN CORPUSCULAR HGB CONC 33 g/dL (32-36); MEAN CORPUSCULAR VOLUME 97 fL (80-99); MEAN PLATELET VOLUME 11.1 fL (9.0-12.2); MONOCYTES # (AUTO) 0.2 10^3/uL (0.0-1.0); MONOCYTES % (AUTO) 2 % (0-12); NEUTROPHILS # (AUTO) 6.7 10^3/uL (1.8-7.8); NEUTROPHILS % (AUTO) 91 % (42-75); PLATELET COUNT 87 10^3/uL (130-400); WHITE BLOOD COUNT 7.4 10^3/uL (4.3-11.0)
[2021-05-12 06:07] LABS: ALBUMIN 3.3 GM/DL (3.2-4.5)
[2021-05-12 06:09] LABS: CALCIUM 8.7 MG/DL (8.5-10.1)
[2021-05-12 06:10] LABS: TOTAL PROTEIN 5.9 GM/DL (6.4-8.2)
[2021-05-12 06:12] LABS: BILIRUBIN,TOTAL 0.4 MG/DL (0.1-1.0)
[2021-05-12 06:14] LABS: CREATININE SERUM 0.72 MG/DL (0.60-1.30)
[2021-05-12] MEDS: ASPIRIN E.C. 81 MG (ECOTRIN) TAB PO SCH (09:57)
[2021-05-12] MEDS: SERTRALINE 100 MG (ZOLOFT) TAB PO SCH (09:57)
[2021-05-12] MEDS: ENALAPRIL 2.5 MG (VASOTEC) TAB PO SCH (09:57)
[2021-05-12] MEDS: SENNA W/DOCUSATE (SENOKOT S) TABLET PO SCH ×2 (09:58→21:38)
[2021-05-12] MEDS: KCL 10 MEQ TAB (MICRO K) PO SCH (09:58)
[2021-05-12] MEDS: guaiFENesin (MUCINEX) 600 MG TAB PO SCH ×2 (12:33→21:38)
[2021-05-12] MEDS: ENOXAPARIN 40 MG/0.4 ML (LOVENOX) SYR SC SCH (12:34)
--- NOTE | 2021-05-12 15:17 | Progress Note - Hospitalist ---
SHERRI SALAZAR 05/12/21 1517: Subjective HPI/CC On Admission Date Seen by Provider: May 12, 2021 Time Seen by Provider: 10:00 CC: SOB HPI: This is a 60yoWF clinic Pt [facility]C who came to the ER with SOB, found to have pneumonia, sputum showed pseudomonas, she was placed on Cefepime and she currently has a headache and the nausea and vomiting was much improved. She also has COPD. She currently is feeling much better. Subjective/Events-last exam Patient feels tired and more sore today, but overall better. Patient has a dry cough that is not productive. States she slept a little better last night and feels like she is breathing better. Patient is requesting mucinex. Would also benefit from an IS. Review of Systems General: No Chills HEENT: No Head Aches Pulmonary: Cough Cardiovascular: No: Chest Pain, Palpitations Gastrointestinal: No: Nausea, Vomiting Genitourinary: No Dysuria, No Frequency Focused Exam Lactate Level 05/10/21 11:50: Lactic Acid Level 1.93 05/10/21 14:12: Lactic Acid Level 1.26 Objective Exam Vital Signs Vital Signs Date Time Temp Pulse Resp B/P (MAP) Pulse Ox O2 Delivery O2 Flow Rate FiO2 05/12/21 15:08 36.6 73 18 165/88 (113) 94 Nasal Cannula 1.00 05/10/21 16:33 32 Capillary Refill : General Appearance: No Apparent Distress, WD/WN Respiratory: Chest Non Tender, No Accessory Muscle Use, No Respiratory Distress, Crackles (slight on deep inspiration) Cardiovascular: Regular Rate, Rhythm, Normal Peripheral Pulses Rectal: Deferred Extremity: Normal Inspection, No Calf Tenderness, No Pedal Edema Neurologic/Psychiatric: Alert, Oriented x3, Normal Mood/Affect Results/Procedures Lab Laboratory Tests 05/12/21 05:40 Patient resulted labs reviewed. Assessment/Plan Assessment and Plan Assess & Plan/Chief Complaint Assessment: Sepsis Nausea and vomiting Pseudomonas pneumonia History of UTI Plan: Cefepime Supportive care Antiemetics 05/12/2021: Contine Cefepime Supportive care Oral Mucinex IS Home O2 evaluation DANIELLE SHELLEY DO 05/13/21 0559: Subjective Subjective/Events-last exam Pt doing much better Will heplock IV fluid No more nausea or vomiting Mucinex will be ordered Improved overall Will need home oxygen evaluation before discharge Discharge likely tomorrow Review of Systems General: Fatigue, Malaise Neurological: Weakness Objective Exam General Appearance: No Apparent Distress, WD/WN, Chronically ill Respiratory: No Accessory Muscle Use, Crackles (slight on deep inspiration) Cardiovascular: Regular Rate, Rhythm Assessment/Plan Assessment and Plan Assess & Plan/Chief Complaint Discharge home tomorrow Supervisory-Addendum Brief Verification & Attestation Participated in pt care: history, MDM, physical Personally performed: exam, history, MDM, supervision of care Care discussed with: Medical Student Procedures: n/a Results interpretation: Verified all documentation Verification and Attestation of Medical Student E/M Service A medical student performed and documented this service in my presence. I reviewed and verified all information documented by the medical student and made modifications to such information, when appropriate. I personally performed the physical exam and medical decision making. Danielle Shelley, May 13, 2021,05:58 SHERRI SALAZAR May 12, 2021 15:17 DANIELLE SHELLEY DO May 13, 2021 05:59
[2021-05-12] MEDS: MELATONIN 3 MG TABLET PO SCH (21:38)
[2021-05-12] MEDS: MONTELUKAST 10 MG (SINGULAIR) TAB PO SCH (21:38)
[2021-05-12] MEDS: diphenhydrAMINE 25 MG TAB (BENADRYL) PO SCH (21:38)
[2021-05-12] MEDS: RT--FLUTICASONE/SALMETEROL 232-14 (AIRDUO RespiCLICK) IH SCH (22:33)
[2021-05-13] MEDS: HYDROcodone/APAP 5 MG/325 MG (LORTAB) TAB PO PRN ×3 (00:06→10:25)
[2021-05-13] MEDS: methylPREDNISolone 40 MG/ML (Solu-MEDROL) VIAL IV SCH ×3 (00:06→12:38)
[2021-05-13] MEDS: CEFEPIME INJECTION 1,000 MG in NS (IVPB) 50 ML IV SCH ×3 (00:06→12:38)
[2021-05-13 06:20] LABS: EOSINOPHILS % (AUTO) 0 % (0-10); MEAN CORPUSCULAR VOLUME 99 fL (80-99); MONOCYTES % (AUTO) 3 % (0-12)
[2021-05-13 06:21] LABS: BASOPHILS % (AUTO) 0 % (0-10); HEMATOCRIT 37 % (35-52); LYMPHOCYTES # (AUTO) 0.5 10^3/uL (1.0-4.0); LYMPHOCYTES % (AUTO) 7 % (12-44); MEAN CORPUSCULAR HEMOGLOBIN 32 pg (25-34); MEAN CORPUSCULAR HGB CONC 33 g/dL (32-36); MEAN PLATELET VOLUME 10.9 fL (9.0-12.2); MONOCYTES # (AUTO) 0.2 10^3/uL (0.0-1.0); NEUTROPHILS # (AUTO) 6.3 10^3/uL (1.8-7.8); NEUTROPHILS % (AUTO) 89 % (42-75); PLATELET COUNT 93 10^3/uL (130-400); WHITE BLOOD COUNT 7.1 10^3/uL (4.3-11.0)
[2021-05-13 06:40] LABS: ALBUMIN 3.4 GM/DL (3.2-4.5); POTASSIUM 4.2 MMOL/L (3.6-5.0)
[2021-05-13 06:42] LABS: CALCIUM 8.8 MG/DL (8.5-10.1)
[2021-05-13 06:43] LABS: TOTAL PROTEIN 5.9 GM/DL (6.4-8.2)
[2021-05-13 06:45] LABS: BILIRUBIN,TOTAL 0.4 MG/DL (0.1-1.0)
[2021-05-13 06:46] LABS: CREATININE SERUM 0.77 MG/DL (0.60-1.30)
[2021-05-13] MEDS: RT-ALBUTEROL/IPRATROPIUM 3 ML (DUONEB) VIAL INH SCH ×2 (07:09→10:45)
[2021-05-13] MEDS: RT--FLUTICASONE/SALMETEROL 232-14 (AIRDUO RespiCLICK) IH SCH (07:10)
[2021-05-13 08:25] VITALS: BP 158/82
[2021-05-13] MEDS: ASPIRIN E.C. 81 MG (ECOTRIN) TAB PO SCH (08:55)
[2021-05-13] MEDS: KCL 10 MEQ TAB (MICRO K) PO SCH (08:56)
[2021-05-13] MEDS: SENNA W/DOCUSATE (SENOKOT S) TABLET PO SCH (08:56)
[2021-05-13] MEDS: ENALAPRIL 2.5 MG (VASOTEC) TAB PO SCH (08:56)
[2021-05-13] MEDS: SERTRALINE 100 MG (ZOLOFT) TAB PO SCH (08:56)
[2021-05-13] MEDS: guaiFENesin (MUCINEX) 600 MG TAB PO SCH (08:56)
[2021-05-13] MEDS ORDERED: PRED10TA22 PO (11:34)
[2021-05-13] MEDS ORDERED: ACHD5005 PO (11:34)
[2021-05-13] MEDS ORDERED: LEVO750T39 PO (11:34)
--- NOTE | 2021-05-13 11:35 | Discharge Summary ---
Discharge Summary Hospital Course Was the Problem List Reviewed?: Yes Problems/Dx: (1) Sepsis Status: Acute Qualifiers: Qualified Codes: A41.9 - Sepsis, unspecified organism (2) Pseudomonas pneumonia Qualifiers: Qualified Codes: J15.1 - Pneumonia due to Pseudomonas (3) COPD with exacerbation Status: Acute Hospital Course Date of Admission: May 10, 2021 at 11:47 Admission Diagnosis : Family Physician/Provider: Siva Lutz MD Date of Discharge: 05/13/21 Discharge Diagnosis: Pseudomonas pneumonia, exacerbation of COPD, thrombocytopenia, oxygen dependent Hospital Course: Patient was admitted to [facility] on 05/11 from the ER with a diagnosis of sepsis and pneumonia. Initial sputum cultures grew out pseudomonas. Patient was placed on IV fluids, cefepime, solumedrol and supportive care. On 05/12, patient's clinical status began improving, she requested some mucinex which was given. Her fluids were discontinued. Patient had a home O2 evaluation for portable oxygen, which was approved. On 05/13, Patient's clinical status had markedly improved and when asked if she thought she could be discharged, patient said she was read y to go home. Patient's final sputum culture came back positive for Pseudomonas and Haemophilus influenzae. Patient will be started on levofloxacin at home. Patient will be sent home with portable oxygen. Patient also had pain medication and a steroid taper sent to her pharmacy for pick-up upon discharge. Patient has instructions to follow up with her PCP as soon as she can. SHERRI SALAZAR and Pending Lab Test: Laboratory Tests 05/13/21 05:56: White Blood Count 7.1, Red Blood Count 3.71L, Hemoglobin 12.0, Hematocrit 37, Mean Corpuscular Volume 99, Mean Corpuscular Hemoglobin 32, Mean Corpuscular Hemoglobin Concent 33, Red Cell Distribution Width 14.2, Platelet Count 93L, Mean Platelet Volume 10.9, Immature Granulocyte % (Auto) 1, Neutrophils (%) (Auto) 89H, Lymphocytes (%) (Auto) 7L, Monocytes (%) (Auto) 3, Eosinophils (%) (Auto) 0, Basophils (%) (Auto) 0, Neutrophils # (Auto) 6.3, Lymphocytes # (Auto) 0.5L, Monocytes # (Auto) 0.2, Eosinophils # (Auto) 0.0, Basophils # (Auto) 0.0, Immature Granulocyte # (Auto) 0.1, Percent Immature Platelet Fraction 3.5, Sodium Level 140, Potassium Level 4.2, Chloride Level 113H, Carbon Dioxide Level 19L, Anion Gap 8, Blood Urea Nitrogen 21H, Creatinine 0.77, Estimat Glomerular Filtration Rate 76, BUN/Creatinine Ratio 27, Glucose Level 136H, Calcium Level 8.8, Corrected Calcium 9.3, Total Bilirubin 0.4, Aspartate Amino Transf (AST/SGOT) 24, Alanine Aminotransferase (ALT/SGPT) 41, Alkaline Phosphatase 35L, Total Protein 5.9L, Albumin 3.4 Microbiology 05/10/21 Blood Culture - Preliminary, Resulted No growth 05/10/21 Gram Stain - Final, Complete 05/10/21 Sputum Culture - Final, Complete Pseudomonas aeruginosa Haemophilus influenza Usual upper respiratory corazon 05/10/21 Urine Culture - Final, Complete NO GROWTH Home Meds Active Levofloxacin 750 Mg Tablet 750 Mg PO DAILY Prednisone 10 Mg Tab.ds.pk 10 Mg PO DAILY Take 6 tabs(60mg)daily,decrease by 1 tab(10MG)daily. HYDROcodone/APAP 5 MG/325 MG TAB (Acetaminophen/Hydrocodone Bitart) 1 Tab Tab 1 Ea PO Q4H PRN Reported Proair Hfa (Albuterol Sulfate) 1 Puff Puff 2 Puff IH Q4H PRN Nystatin 100,000 Unit/1 Ml Oral.susp 4 Ml PO TID PRN SWISH AND SWALLOW Aspirin EC (Aspirin) 81 Mg Tablet.dr 81 Mg PO DAILY Advair 500-50 Diskus (Fluticasone/Salmeterol) 1 Each Blst.w.dev 1 Each IH BID Metoprolol Succinate 25 Mg Tab.er.24h 12.5 Mg PO DAILY TAKES OF A 25MG Sertraline HCl 100 Mg Tablet 150 Mg PO DAILY TAKES 1 & (100MG) TABS K-Tab ER (Potassium Chloride) 10 Meq Tablet.er 10 Meq PO DAILY Montelukast Sodium 10 Mg Tablet 10 Mg PO HS Enalapril Maleate 2.5 Mg Tablet 2.5 Mg PO DAILY Assessment/Pt Instructions PCP in 1 week Discharge Planning: <30 minutes discharge planning Discharge Instructions Discharge Diet: No Restrictions Activity as Tolerated: Yes Discharge Physical Examination Vital Signs Vital Signs Date Time Temp Pulse Resp B/P (MAP) Pulse Ox O2 Delivery O2 Flow Rate FiO2 05/13/21 10:45 95 Room Air 0.00 05/13/21 08:25 36.4 60 20 158/82 (107) 05/10/21 16:33 32 General Appearance: No Apparent Distress, WD/WN, Chronically ill Allergies: Coded Allergies: No Known Drug Allergies (Unverified , 08/22/16) Discharge Summary Date of Admission May 10, 2021 at 11:47 Date of Discharge Discharge Date: May 13, 2021 Admission Diagnosis Assessment: Sepsis Nausea and vomiting Pseudomonas pneumonia History of UTI Plan: Cefepime Supportive care Antiemetics Discharge Diagnosis Discharge home tomorrow (1) Sepsis Status: Acute Qualifiers: Qualified Codes: A41.9 - Sepsis, unspecified organism (2) Pseudomonas pneumonia Qualifiers: Qualified Codes: J15.1 - Pneumonia due to Pseudomonas (3) COPD with exacerbation Status: Acute ANTWON SHELLEY DO May 13, 2021 11:35
[2021-05-13] MEDS: ENOXAPARIN 40 MG/0.4 ML (LOVENOX) SYR SC SCH (12:39)
--- NOTE | 2021-05-13 13:09 | Progress Note ---
SHERRI SALAZAR 05/13/21 1309: Progress Note Patient was admitted to [facility] on 05/11 from the ER with a diagnosis of sepsis and pneumonia. Initial sputum cultures grew out pseudomonas. Patient was placed on IV fluids, cefepime, solumedrol and supportive care. On 05/12, patient's clinical status began improving, she requested some mucinex which was given. Her fluids were discontinued. Patient had a home O2 evaluation for portable oxygen, which was approved. On 05/13, Patient's clinical status had markedly improved and when asked if she thought she could be discharged, patient said she was ready to go home. Patient's final sputum culture came back positive for Pseudomonas and Haemophilus influenzae. Patient will be started on levofloxacin at home. Patient will be sent home with portable oxygen. Patient also had pain medication and a steroid taper sent to her pharmacy for pick-up upon discharge. Patient has instructions to follow up with her PCP as soon as she can. DANIELLE SHELLEY DO 05/13/21 1611: Supervisory-Addendum Brief Verification & Attestation Participated in pt care: history, MDM, physical Personally performed: exam, history, MDM, supervision of care Care discussed with: Medical Student Procedures: n/a Results interpretation: Verified all documentation Verification and Attestation of Medical Student E/M Service A medical student performed and documented this service in my presence. I reviewed and verified all information documented by the medical student and made modifications to such information, when appropriate. I personally performed the physical exam and medical decision making. Danielle Shelley May 13, 2021,16:11 SHERRI SALAZAR May 13, 2021 13:09 DANIELLE SHELLEY DO May 13, 2021 16:11
[2021-05-13] MEDS: ACETAMINOPHEN 325 MG TABLET PO PRN (13:31)
[2021-05-13 13:40] VITALS: BP 158/82
== END 2021-05-13 14:15 | disposition home or self-care (01) | DRG 871 ==
LOC: ER 09:27 → EDUNIT# 09:31 → 4TH 11:47
PROVIDERS: ADMIT Internal Medicine; ATTEND Internal Medicine
DX: A41.9 Sepsis, unspecified organism (principal); J15.1 Pneumonia due to Pseudomonas; J44.1 Chronic obstructive pulmonary disease with (acute) exacerbation; J44.0 Chronic obstructive pulmonary disease with (acute) lower respiratory infection; I42.8 Other cardiomyopathies; D69.6 Thrombocytopenia, unspecified; Z99.81 Dependence on supplemental oxygen; R11.2 Nausea with vomiting, unspecified; Z87.891 Personal history of nicotine dependence; M19.90 Unspecified osteoarthritis, unspecified site; F41.9 Anxiety disorder, unspecified; F32.A Depression, unspecified; Z79.82 Long term (current) use of aspirin; Z79.899 Other long term (current) drug therapy; I50.9 Heart failure, unspecified; I11.0 Hypertensive heart disease with heart failure; Z20.822 Contact with and (suspected) exposure to COVID-19
CPT/HCPCS: 36415; 71045; 74022; 80053; 81000; 83605; 83690; 85007; 85025; 85027; 85610; 85730; 86141; 87040; 87070; 87077; 87088; 87205; 87636; 93041; 94640; 94760; 94761

== ENCOUNTER 2022-07-15 06:43 | Emergency (ER) | payer MEDICARE ==
[~2022-07-15] VITALS: Ht 165 cm; Wt 70.6 kg
[~2022-07-15 06:43] MED LIST changes: +ACHD5005 PO; +ALBU8.5H6 IH; +LEVO750T PO; +NYST1000 PO; +POTA10CA44 PO; +PRED10TA22 PO; -RT-ALBUINH IH
--- NOTE | 2022-07-15 06:58 | ED GI ---
General Chief Complaint: Abdominal/GI Problems Stated Complaint: NAUSEA/VOMITING Source of Information: Patient, EMS Exam Limitations: No Limitations History of Present Illness Date Seen by Provider: Jul 15, 2022 Time Seen by Provider: 06:44 Initial Comments 61-year-old female presents via EMS for nausea and vomiting. Symptoms started last night about 10 PM, approximately 2 hours after she ate rib crib. She has diffuse abdominal cramping without any focal tenderness. She took a "little white pill" that they gave her the last time she had this happen about a year ago. This has not seemed to help. She did receive 4 mg of Zofran in route via EMS. She denies any illness prior to this. She is currently taking antibiotics and steroids for a respiratory illness. She does have COPD and uses oxygen at night. She denies any fevers chills chest pain. She does have some loose stools and states there was some bright red blood in it this morning. All other systems reviewed and negative except documented per HPI. Voice recognition software was used to help create this chart Allergies and Home Medications Allergies Coded Allergies: No Known Drug Allergies (Unverified , 08/22/16) Patient Home Medication List Home Medication List Reviewed: Yes Albuterol Sulfate (Ventolin Hfa) 1 Puff Puff, 2 PUFF IH Q4H PRN for SHORTNESS OF BREATH, (Reported) Entered as Reported by: KANE CRISOSTOMO on 05/10/21 1358 Aspirin (Aspirin EC) 81 Mg Tablet.dr, 81 MG PO DAILY, (Reported) Entered as Reported by: KANE CRISOSTOMO on 02/03/21 1150 Enalapril Maleate (Enalapril Maleate) 2.5 Mg Tablet, 2.5 MG PO DAILY, (Reported) Entered as Reported by: KANE CRISOSTOMO on 02/03/21 1150 Fluticasone/Salmeterol (Advair 500-50 Diskus) 1 Each Blst.w.dev, 1 EACH IH BID, (Reported) Entered as Reported by: KANE CRISOSTOMO on 02/03/21 1150 Hydrocodone Bit/Acetaminophen (HYDROcodone/APAP 5 MG/325 MG TAB) 1 Tab Tab, 1 EA PO Q4H PRN for PAIN-MODERATE (5-7) Prescribed by: ANTWON SHELLEY on 05/13/21 1134 Levofloxacin (Levofloxacin) 750 Mg Tablet, 750 MG PO DAILY Prescribed by: ANTWON SHELLEY on 05/13/21 1134 Metoprolol Succinate (Metoprolol Succinate) 25 Mg Tab.er.24h, 12.5 MG PO DAILY, (Reported) Entered as Reported by: KANE CRISOSTOMO on 02/03/21 1150 Montelukast Sodium (Montelukast Sodium) 10 Mg Tablet, 10 MG PO HS, (Reported) Entered as Reported by: KANE CRISOSTOMO on 02/03/21 1150 Nystatin (Nystatin) 100,000 Unit/1 Ml Oral.susp, 4 ML PO TID PRN for THRUSH, (Reported) Entered as Reported by: KANE CRISOSTOMO on 05/10/21 1358 Potassium Chloride (K-Tab ER) 10 Meq Tablet.er, 10 MEQ PO DAILY, (Reported) Entered as Reported by: KANE CRISOSTOMO on 02/03/21 1150 Prednisone (Prednisone) 10 Mg Tab.ds.pk, 10 MG PO DAILY Prescribed by: ANTWON SHELLEY on 05/13/21 1134 Sertraline HCl (Sertraline HCl) 100 Mg Tablet, 150 MG PO DAILY, (Reported) Entered as Reported by: KANE CRISOSTOMO on 02/03/21 1150 Review of Systems Review of Systems Constitutional: no symptoms reported Past Lnjocda-Leuaqg-Jjjsyh Hx Patient Social History Tobacco Use?: No Smoking Status: Former Smoker Use of E-Cig and/or Vaping dev: No Substance use?: No Substance type: Marijuana Alcohol Use?: No Alcohol Frequency: Once in a while Pt feels they are or have been: No Immunizations Up To Date Tetanus Booster (TDap): Less than 5yrs PED Vaccines UTD: Yes First/Initial COVID19 Vaccinat: x3 Second COVID19 Vaccination Bjorn: 10/2020 Third COVID19 Vaccination Date: 10/2020 Seasonal Allergies Seasonal Allergies: Yes Past Medical History Surgery/Hospitalization HX: COPD,ENLARGED HEART,HEPATITIS C (TREATED IN 2004) FORMER SMOKER HYSTERECTOMY,orthopedic, , htn, renal stones, anxiety, depression, eczema Surgeries: Yes Section, Hysterectomy, Orthopedic Respiratory: Yes Asthma, COPD Currently Using CPAP: Yes Currently Using BIPAP: No Cardiac: Yes (nonischemic cardiomyopathy) Hypertension Neurological: No 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 Disorders: No Female 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 Disorders: Denies [employer]GER History: Hysterectomy Sexually Transmitted Disease: No HIV/AIDS: No Genitourinary: Yes Kidney Infection, Bladder Infection Gastrointestinal: Yes Hepatitis Musculoskeletal: Yes Arthritis Endocrine: No HEENT: No Loss of Vision: Bilateral Hearing Impairment: Denies Psychosocial: Yes (mood disorder) Anxiety, Depression Eczema Adverse Reaction/Blood Tranf: No Family Medical History Arthritis 19 FATHER Asthma 19 MOTHER Cardiovascular disease 19 FATHER Chest pain 19 FATHER Congestive heart failure 19 FATHER Diabetes mellitus 19 MOTHER Family history: Arthritis 19 FATHER Family history: Asthma 19 MOTHER Family history: Cardiovascular disease 19 FATHER Family history: Diabetes mellitus 19 MOTHER Family history: Hypertension 19 FATHER 19 MOTHER Heart disease 19 FATHER History of - respiratory disease 19 MOTHER Visual impairment 19 MOTHER No Family History of: AIDS Abdominal aortic aneurysm Abdominal aortic aneurysm Gregory's disease Gregory's disease Alcoholism Alcoholism Alzheimer's disease Aphasia Aphasia Cancer Cancer of colon Cataract Congenital heart disease Cystic fibrosis Dementia Dysphagia Family history: Allergy Family history: Alzheimer's disease Family history: Breast disease Family history: Coronary thrombosis Family history: Gastrointestinal disease Family history: Glaucoma Family history: Osteoporosis Family history: Thyroid disorder Fibrocystic disease of breast Gastroenteritis Glaucoma Headache Hearing loss Hereditary disease History of - anemia History of - disorder History of drug abuse Human immunodeficiency virus (HIV) seropositivity Hypercholesterolemia Infertile Kidney disease Malignant neoplasm of lung Myocardial infarction Parkinson's disease Psychotic disorder Seizure disorder Stroke Tuberculosis No Pertinent Family Hx, Diabetes Physical Exam Vital Signs Vital Signs - First Documented 07/15/22 06:46 Temp 36.1 Pulse 75 Resp 18 B/P (MAP) 189/120 (143) Pulse Ox 96 O2 Delivery Nasal Cannula O2 Flow Rate 2.00 Capillary Refill : Height/Weight/BMI Height: 5'7.00" Weight: 155lbs. 3.0oz. [id number]; 25.90 BMI Method:Stated General Appearance: WD/WN, no apparent distress HEENT: normal ENT inspection, pharynx normal Neck: non-tender, full range of motion, supple, normal inspection Respiratory: chest non-tender, lungs clear, normal breath sounds, no respiratory distress, no accessory muscle use Cardiovascular: regular rate, rhythm, no murmur Gastrointestinal: normal bowel sounds, non tender, soft, no organomegaly Extremities: normal range of motion, non-tender, normal inspection, normal capillary refill Back: no CVA tenderness Neurologic/Psychiatric: alert, normal mood/affect, oriented x 3 Skin: normal color, warm/dry Progress/Results/Core Measures Results/Orders Lab Results Laboratory Tests Test 07/15/22 07:00 Range/Units White Blood Count 7.2 4.3-11.0 10^3/uL Red Blood Count 5.53 H 3.80-5.11 10^6/uL Hemoglobin 17.7 H 11.5-16.0 g/dL Hematocrit 51 35-52 % Mean Corpuscular Volume 92 80-99 fL Mean Corpuscular Hemoglobin 32 25-34 pg Mean Corpuscular Hemoglobin Concent 35 32-36 g/dL Red Cell Distribution Width 14.2 10.0-14.5 % Platelet Count 118 L 130-400 10^3/uL Mean Platelet Volume 9.2 9.0-12.2 fL Immature Granulocyte % (Auto) 0 % Neutrophils (%) (Auto) 83 H 42-75 % Lymphocytes (%) (Auto) 6 L 12-44 % Monocytes (%) (Auto) 6 0-12 % Eosinophils (%) (Auto) 4 0-10 % Basophils (%) (Auto) 0 0-10 % Neutrophils # (Auto) 6.0 1.8-7.8 10^3/uL Lymphocytes # (Auto) 0.4 L 1.0-4.0 10^3/uL Monocytes # (Auto) 0.5 0.0-1.0 10^3/uL Eosinophils # (Auto) 0.3 0.0-0.3 10^3/uL Basophils # (Auto) 0.0 0.0-0.1 10^3/uL Immature Granulocyte # (Auto) 0.0 0.0-0.1 10^3/uL Percent Immature Platelet Fraction 2.0 0.0-7.6 % Sodium Level 143 135-145 MMOL/L Potassium Level 4.1 3.6-5.0 MMOL/L Chloride Level 110 H 98-107 MMOL/L Carbon Dioxide Level 21 21-32 MMOL/L Anion Gap 12 5-14 MMOL/L Blood Urea Nitrogen 23 H 7-18 MG/DL Creatinine 0.84 0.60-1.30 MG/DL Estimat Glomerular Filtration Rate 79 BUN/Creatinine Ratio 27 Glucose Level 167 H 70-105 MG/DL Calcium Level 8.7 8.5-10.1 MG/DL My Orders Orders - REINA,MATTHIAS L DO Basic Metabolic Panel (07/15/22 06:53) Cbc With Automated Diff (07/15/22 06:53) Diphenhydramine Injection (Benadryl Inje (07/15/22 07:00) Manual Differential (07/15/22 07:00) Medications Given in ED Current Medications Medications Dose Ordered Sig/Alphonse Route Start Time Stop Time Status Last Admin Dose Admin Diphenhydramine HCl 25 mg ONCE ONCE IVP 07/15/22 07:00 07/15/22 07:01 DC 07/15/22 07:01 25 MG Vital Signs/I&O 07/15/22 06:46 Temp 36.1 Pulse 75 Resp 18 B/P (MAP) 189/120 (143) Pulse Ox 96 O2 Delivery Nasal Cannula O2 Flow Rate 2.00 Departure Communication (Admissions) The patient is hemodynamically stable, nontoxic. She had some dry heaving here but no vomiting. No episodes of diarrhea here. It is possible this is related to a foodborne illness given its onset a couple hours after eating at a restaurant however it could be that this is a rcw-bp-uli-mill GI bug as well. Regardless her electrolytes are normal as are her vital signs. Her exam is reassuring. I gave her Benadryl here and she got Zofran IV via EMS. She states she is feeling much better. She has been given water and tolerating p.o. without any emesis. She is discharged home in stable condition with supportive care. She has no focal abdominal tenderness, rather just diffuse abdominal cramping. No indication for CT of her abdomen at this time. Impression Primary Impression: Nausea and vomiting Qualified Codes: R11.2 - Nausea with vomiting, unspecified Additional Impression: Diarrhea Qualified Codes: R19.7 - Diarrhea, unspecified Disposition: HOME, SELF-CARE Condition: Stable Departure-Patient Inst. Referrals: LUDIN GALINDO MD (PCP/Family) Primary Care Physician Patient Instructions: Nausea and Vomiting, Adult ED Add. Discharge Instructions: You have indicated your symptoms are improved with the provided medication. Continue to use the Zofran at home as needed for nausea. You may add Benadryl to this which is what we gave you here that seem to help you. You may take up to 50 mg every 6 hours. Increase your fluids at home with small sips of fluid every 15 to 20 minutes. Rest as able. Return to the emergency department for any severe concerns. Follow-up with your primary doctor for any nonemergent needs. All discharge instructions reviewed with patient and/or family. Voiced understanding. MATTHIAS HUANG DO Jul 15, 2022 06:58
[2022-07-15] MEDS ORDERED: diphenhydrAMINE 50 MG/ML INJ (BENADRYL) IVP ONE (07:00)
[2022-07-15 07:08] LABS: HEMOGLOBIN 17.7 g/dL (11.5-16.0)
[2022-07-15 07:10] LABS: BASOPHILS % (AUTO) 0 % (0-10); EOSINOPHILS # (AUTO) 0.3 10^3/uL (0.0-0.3); EOSINOPHILS % (AUTO) 4 % (0-10); HEMATOCRIT 51 % (35-52); LYMPHOCYTES # (AUTO) 0.4 10^3/uL (1.0-4.0); LYMPHOCYTES % (AUTO) 6 % (12-44); MEAN CORPUSCULAR HEMOGLOBIN 32 pg (25-34); MEAN CORPUSCULAR HGB CONC 35 g/dL (32-36); MEAN CORPUSCULAR VOLUME 92 fL (80-99); MEAN PLATELET VOLUME 9.2 fL (9.0-12.2); MONOCYTES # (AUTO) 0.5 10^3/uL (0.0-1.0); MONOCYTES % (AUTO) 6 % (0-12); NEUTROPHILS % (AUTO) 83 % (42-75); PLATELET COUNT 118 10^3/uL (130-400); WHITE BLOOD COUNT 7.2 10^3/uL (4.3-11.0)
[2022-07-15 07:17] LABS: POTASSIUM 4.1 MMOL/L (3.6-5.0)
[2022-07-15 07:18] LABS: CALCIUM 8.7 MG/DL (8.5-10.1)
[2022-07-15 07:23] LABS: CREATININE SERUM 0.84 MG/DL (0.60-1.30)
[2022-07-15 07:48] LABS: BAND NEUTROPHILS 4 %; BASOPHILS % (MANUAL) 0 %; EOSINOPHILS % (MANUAL) 10 %; LYMPHOCYTES % (MANUAL) 7 %; MONOCYTES % (MANUAL) 3 %; NEUTROPHILS % (MANUAL) 76 %; RBC MORPH NORMAL
[2022-07-15 09:05] VITALS: BP 132/73
== END 2022-07-15 09:05 | disposition home or self-care (01) ==
LOC: EDUNIT# 06:43 → ER 06:45
DX: R11.2 Nausea with vomiting, unspecified (principal); R19.7 Diarrhea, unspecified; R10.84 Generalized abdominal pain; Z87.891 Personal history of nicotine dependence; Z87.19 Personal history of other diseases of the digestive system
CPT/HCPCS: 36415; 80048; 85007; 85027; 99283